=== PATIENT | female | born 1980 | race Caucasian/White ===

== ENCOUNTER 2021-12-04 16:45 | Emergency (ER) | payer BC, SELFPAY ==
--- NOTE | ~2021-12-04 | XR_ITS ---
EXAMINATION: XR SHOULDER, RIGHT CLINICAL INFORMATION: Pain COMPARISON: None TECHNIQUE: Three views of the right shoulder. FINDINGS: No fracture. Glenohumeral and acromioclavicular alignment is anatomic with normal joint space. No abnormal soft tissue calcifications. Visualized right hemithorax is unremarkable. XR/XR shoulder RT min 2V IMPRESSION: No acute osseous abnormality seen.
[2021-12-04 16:49] VITALS: BP 135/84; PULSE 71; RESP 18; TEMP 37; O2SAT 100; BMI 29.2
--- NOTE | 2021-12-04 17:08 | ED_ITS ---
HPI - Extremity Problem General Chief complaint: Extremity Injury, Upper Stated complaint: r shoulder pain Time Seen by Provider: 12/04/21 17:08 History of Present Illness HPI Narrative: Patient complains of right shoulder pain for several weeks with no known injury it hurts to move her shoulder Related Data Previous Rx's Medication Instructions Recorded ibuprofen 600 mg tablet 600 mg PO Q6H PRN pain #20 tabs 12/04/21 Allergies Allergy/AdvReac Type Severity Reaction Status Date / Time codeine [CODEINE] Allergy Intermediate VOMITING Unverified 02/14/20 19:11 oxycodone [OXYCODONE] Allergy Intermediate VOMITING Unverified 02/14/20 19:11 trazodone [TRAZODONE] Allergy Intermediate NAUSEA & Unverified 02/14/20 19:11 VOMITING opiates Allergy Unknown vomiting Uncoded 01/05/17 00:00 trazadone Allergy Unknown nausea and Uncoded 01/05/17 00:00 vomiting Review of Systems Review of Systems: Positive for right shoulder pain Negatives are no fever no chills no headache no neck pain no numbness weakness or tingling no chest pain no shortness of breath no other extremity pains, no skin rash Yes all other systems are reviewed and are negative PMFSH Past Medical History Source: nursing notes reviewed Social History Social History Advance Directives: No Advance Directives Information Provided: No Physical Exam Vital Signs: Vital Signs: Last Vital Signs Temp 98.6 F 12/04/21 16:49 Pulse 71 12/04/21 16:49 Resp 18 12/04/21 16:49 BP 135/84 12/04/21 16:49 Pulse Ox 100 12/04/21 16:49 O2 Del Method 12/04/21 16:49 BMI result Body Mass Index 29.2 General appearance no distress Head is normocephalic atraumatic Neck is supple and nontender The back is supple and nontender with full range of motion The chest is clear to auscultation bilateral no chest wall tenderness Heart no murmur The extremities the right shoulder has mildly limited range of motion with some mild discomfort on extension abduction and external rotation, there is no redness no warmth to the joint no swelling, neurovascular intact distal, there was tenderness to anterior and lateral aspects of the shoulder but skin was otherwise normal, neurovascular intact distal Other extremities normal Course Course Course Narrative: X-ray of the right shoulder was normal Patient is vice to follow with orthopedist for further evaluation and well- appearing patient is discharged Discharge Plan Discharge Clinical Impression: Right shoulder strain Patient Disposition: Home, Self-Care Additional Instructions: I did not see any significant abnormality on your x-ray but the reading is not back from the radiologist I will check radiologist reading tomorrow morning and will call you if there is anything I missed Follow with orthopedist for further evaluation Return any concerns Prescriptions: New ibuprofen 600 mg tablet 600 mg PO Q6H PRN (Reason: pain) Qty: 20 0RF Referrals: Dong Chase MD [Physician] - (Right shoulder pain) Interventions: ED Discharge Assessment Last Done: 12/04/21 19:16 Discharge Date/Time: 12/04/21 19:26
== END 2021-12-04 19:26 | disposition home or self-care (01) ==
PROVIDERS: Emergency Provider Internal Medicine
DX: S46.911A Strain of unspecified muscle, fascia and tendon at shoulder and upper arm level, right arm, initial encounter (principal); X58.XXXA Exposure to other specified factors, initial encounter; Y93.9 Activity, unspecified; Y92.9 Unspecified place or not applicable; Y99.8 Other external cause status
CPT/HCPCS: 73030; 99282; 99283

== ENCOUNTER 2022-02-23 08:47 | Emergency (ER) | payer BC, SELFPAY ==
--- NOTE | ~2022-02-23 | US_ITS ---
EXAMINATION: US ABDOMEN LIMITED CLINICAL INFORMATION: Right upper quadrant pain, rule out gallstones. COMPARISON: None TECHNIQUE: Real-time imaging of the right upper quadrant abdominal viscera. FINDINGS: PANCREAS: Visualized portions unremarkable. LIVER: Unremarkable. GALLBLADDER: Unremarkable. COMMON BILE DUCT: Normal in caliber measuring 0.3 cm in diameter. RIGHT KIDNEY: 10.2 cm. Unremarkable. FREE FLUID: None. US/US abdomen limited IMPRESSION: Unremarkable abdominal ultrasound.
[2022-02-23 08:54] VITALS: BP 125/62; PULSE 62; RESP 18; TEMP 36.8; O2SAT 99; BMI 29.2
[2022-02-23 09:08] LABS: MANUAL DIFF FLAG NO
[2022-02-23 09:09] LABS: Basophils Percent Auto 0.3 % (0-2); Eosinophils Absolute Auto 0.2 X10*3/uL (0.0-0.4); Eosinophils Percent Auto 2.8 % (0-4); Hematocrit 35.6 % (37.0-47.0); Imm Gran Abs Auto 0.01 X10*3/uL (0.00-0.03); Imm Gran Pct Auto 0.2 % (0.0-0.4); Lymphocytes Absolute Auto 1.9 X10*3/uL (1.2-4.9); Lymphocytes Percent Auto 30.7 % (20-40); Mean Corpuscular HGB Conc 30.9 g/dl (31.0-35.0); Mean Corpuscular Hemoglobin 23.8 pg (27.0-33.0); Mean Corpuscular Volume 77.1 fL (80.0-98.0); Mean Platelet Volume 11.3 fL (9.4-12.3); Monocytes Absolute Auto 0.4 X10*3/uL (0.1-1.2); Monocytes Percent Auto 7.2 % (2-11); Neutrophils Absolute Auto 3.6 x10*3/uL (2.0-8.3); Neutrophils Percent Auto 58.8 % (45-73); Platelet Count 206 X10*3/uL (160-400); Red Blood Count 4.62 X10*6/uL (4.20-5.50); Red Cell Distribution Width 15.9 % (11.0-16.0); White Blood Count 6.1 X10*3/uL (4.8-10.8)
[2022-02-23 09:23] LABS: Anion Gap 14 (12-20); Blood Urea Nitrogen 16 mg/dL (9-16); Calcium 9.6 mg/dL (8.4-10.2); Carbon Dioxide 24 mmol/L (22-29); Chloride 106 mmol/L (96-108); Creatinine Clr Calc Pharmacy 94.4; Estimated Glomerular Filt Rate > 60; Glucose Random 99 mg/dL (60-115); Potassium 4.5 mmol/L (3.3-5.1); Sodium 139 mmol/L (135-145)
[2022-02-23 10:12] LABS: Alanine Aminotransferase 17 U/L (0-31); Albumin Level 4.4 g/dL (3.5-5.0); Alkaline Phosphatase 79 U/L (39-117); Aspartate Amino Transferase 21 U/L (5-31); Bilirubin Direct 0.2 mg/dL (0.0-0.5); Bilirubin Total 0.4 mg/dL (0.0-1.0); Lipase 62 U/L (8-78); Total Protein 7.8 g/dL (6.5-8.0)
[2022-02-23 10:21] LABS: HCG Quantitative < 2 mIU/mL
[2022-02-23] MEDS: Famotidine 20 MG TABLET PO (11:01)
[2022-02-23] MEDS: Ondansetron ODT 4 MG TAB.RAPDIS TRANSLINGU (11:01)
[2022-02-23] MEDS: PHENobarb/Hyoscy/Atropine/Scop 10 ML ELIXIR PO (11:01)
[2022-02-23 11:02] VITALS: BP 126/71; PULSE 74; RESP 15; TEMP 37.1; O2SAT 100
--- NOTE | 2022-02-23 12:07 | ED_ITS ---
HPI - General Adult General Chief complaint: Abdominal Pain Stated complaint: gall bladder issues Time Seen by Provider: 02/23/22 09:40 Source: patient Mode of arrival: ambulatory Limitations: no limitations History of Present Illness HPI narrative: 41 YOLD FEMALE PRESENTS TO THE ED for RUQ pain. Patient states history of biliary COlic. Patient denies any chest pain, shortness of breath, pleurisy, abdominal trauma, dysuria, hematuria, vaginal bleeding, vaginal discharge, flank pain, or radiating to the back. Patient states symptoms began last night after eating fatty food. Patient states pain presently in the ER is 06/08. Patient admits pain is improved. Related Data Previous Rx's Medication Instructions Recorded ibuprofen 600 mg tablet 600 mg PO Q6H PRN pain #20 tabs 12/04/21 naproxen 500 mg tablet 500 mg PO BID PRN pain 7 days #14 02/23/22 tabs Allergies Allergy/AdvReac Type Severity Reaction Status Date / Time codeine [CODEINE] Allergy Intermediate VOMITING Unverified 02/14/20 19:11 oxycodone [OXYCODONE] Allergy Intermediate VOMITING Unverified 02/14/20 19:11 trazodone [TRAZODONE] Allergy Intermediate NAUSEA & Unverified 02/14/20 19:11 VOMITING opiates Allergy Unknown vomiting Uncoded 01/05/17 00:00 trazadone Allergy Unknown nausea and Uncoded 01/05/17 00:00 vomiting Review of Systems Review of Systems: Right upper quadrant abdominal pain Yes all other systems are reviewed and are negative PMFSH Social History Social History Advance Directives: No Advance Directives Information Provided: No Physical Exam ED Vital Signs: Vital Signs - 24 hr 02/23/22 08:54 02/23/22 11:02 Temperature 98.2 F 98.7 F Pulse Rate 62 74 Respiratory Rate 18 15 Blood Pressure 125/62 126/71 Pulse Oximetry 99 100 Oxygen Delivery Method Room Air Room Air BMI result Body Mass Index 29.2 Const General: cooperative, healthy appearing, comfortable, no acute distress, well developed, alert, awake and Physically active Orientation/consciousness: oriented to time and patient oriented x3 HENMT Head: Yes normal to inspection, Yes No palpable skull fracture present, Yes normocephalic, Yes atraumatic and No abrasion Eyes General: appearance normal, both eyes and all related structures Neck Neck: Yes normal visual inspection, Yes full ROM, Yes no lymphadenopathy, Yes no meningeal signs, Yes trachea midline, Yes supple, No anterior neck swelling and No tender Chest Chest palpation & inspection: normal inspection of the chest and normal palpation of entire chest wall Resp Effort & Inspection: normal respiratory effort and able to speak in complete sentences Auscultation: clear to auscultation bilaterally Cardio Jugular venous distension: no JVD Heart sounds: S1 normal heart sound present and S2 normal heart sound present GI Inspection: Yes normal to inspection and No abdominal wall ecchymosis Palpation (GI): Soft to palpation, not firm, Tenderness to palpation present (GI) in the RUQ, no guarding and not rigid General: No CVA tenderness and Yes no CVA tenderness Back/Spine/Pelvis Back: no CVA tenderness, No CVA tenderness and No back tenderness Skin General skin exam: no rashes or lesions noted, elasticity normal and turgor normal Neuro General: oriented to time, patient oriented x3, gait normal, tone normal, moves all extremities, no meningeal signs, no focal motor deficits and CN's II-XI intact bilaterally Cranial nerves: Yes CN's II-XII intact bilaterally Extrem General: Yes normal to inspection and Yes full ROM Psych Appearance: grossly normal, well kempt and not disheveled Course Course Course Narrative: Labs and right upper quadrant ultrasound ordered. Patient well-appearing Reevaluation(s) Reevaluation #1: Labs are normal. Abdominal ultrasound came back normal and negative for gallstones. Patient denies any lower abdominal pain. Patient did not give any urine although was ordered. Patient states she will follow up with primary care provider to give urine if she is symptomatic for urinary tract infection. Patient is safe for discharge. Time: 13:30 Medical Decision Making [facility] Narrative Medical decision making narrative: RUQ pain Lab Data Result diagrams: 02/23/22 09:03 02/23/22 09:03 Labs: Lab Results 02/23/22 02/23/22 Range/Units 09:03 09:03 WBC 6.1 (4.8-10.8) X10*3/uL RBC 4.62 (4.20-5.50) X10*6/uL Hgb 11.0 L (12.0-16.0) g/dl Hct 35.6 L (37.0-47.0) % MCV 77.1 L (80.0-98.0) fL MCH 23.8 L (27.0-33.0) pg MCHC 30.9 L (31.0-35.0) g/dl RDW 15.9 (11.0-16.0) % Plt Count 206 (160-400) X10*3/uL MPV 11.3 (9.4-12.3) fL Immature Gran % (Auto) 0.2 (0.0-0.4) % Neut % (Auto) 58.8 (45-73) % Lymph % (Auto) 30.7 (20-40) % Roberts % (Auto) 7.2 (2-11) % Eos % (Auto) 2.8 (0-4) % Baso % (Auto) 0.3 (0-2) % Lymph # (Auto) 1.9 (1.2-4.9) X10*3/uL Roberts # (Auto) 0.4 (0.1-1.2) X10*3/uL Eos # (Auto) 0.2 (0.0-0.4) X10*3/uL Baso # (Auto) 0.0 (0.0-0.2) X10*3/uL Abs Immat Gran (auto) 0.01 (0.00-0.03) X10*3/uL Absolute Neuts (auto) 3.6 (2.0-8.3) x10*3/uL Absolute Nucleated RBC 0.000 (0.0-0.012) X10*3/uL Nucleated RBC % (auto) 0.0 (0.0-0.2) /100WBC Sodium 139 (135-145) mmol/L Potassium 4.5 (3.3-5.1) mmol/L Chloride 106 (96-108) mmol/L Carbon Dioxide 24 (22-29) mmol/L Anion Gap 14 (12-20) BUN 16 (9-16) mg/dL Creatinine 0.78 (0.5-1.4) mg/dL Estim Creat Clear Calc 94.4 Estimated GFR > 60 Random Glucose 99 (60-115) mg/dL Calcium 9.6 (8.4-10.2) mg/dL Total Bilirubin 0.4 (0.0-1.0) mg/dL Direct Bilirubin 0.2 (0.0-0.5) mg/dL AST 21 (5-31) U/L ALT 17 (0-31) U/L Alkaline Phosphatase 79 (39-117) U/L Total Protein 7.8 (6.5-8.0) g/dL Albumin 4.4 (3.5-5.0) g/dL Lipase 62 (8-78) U/L Beta HCG, Quant < 2 mIU/mL Discharge Plan Discharge Clinical Impression: Abdominal pain, acute, right upper quadrant Patient Disposition: Home, Self-Care Instructions: Abdominal Pain (ED) Additional Instructions: Your blood work and ultrasound came back normal and negative for gallstones or cholecystitis. Please follow-up with the primary care provider. Return to the ED immediately for any nausea, vomiting, fever, chills, worsening abdominal pain, dysuria hematuria vaginal bleeding, vaginal discharge, or any other c oncerning symptoms. Prescriptions: New naproxen 500 mg tablet 500 mg PO BID PRN (Reason: pain) 7 Days Qty: 14 0RF No Action ibuprofen 600 mg tablet 600 mg PO Q6H PRN (Reason: pain) Qty: 20 0RF Stand Alone Forms: Work/School Release Interventions: ED Discharge Assessment Last Done: 02/23/22 13:40 Discharge Date/Time: 02/23/22 13:41 Print Language: [place]
== END 2022-02-23 13:41 | disposition home or self-care (01) ==
PROVIDERS: Physician Assistant; Emergency Provider Emergency Medicine
DX: R10.11 Right upper quadrant pain (principal); Z79.899 Other long term (current) drug therapy
CPT/HCPCS: 36415; 76705; 80048; 80076; 83690; 84702; 85025; 99284

== ENCOUNTER 2022-07-09 08:17 | Emergency (ER) | payer BC, SELFPAY ==
[2022-07-09 08:22] VITALS: BP 123/86; PULSE 75; RESP 16; TEMP 37.1; O2SAT 100; BMI 28.3
--- NOTE | 2022-07-09 08:33 | PC.NURSE ---
neuros intact. PERRL. ALMENDAREZ with no weakness noted. No facial droop. Ambulates with steady gait. speech clear
[2022-07-09 08:53] LABS: Appearance Urine Clear; Color Urine Yellow; Glucose Urine UA Negative (Negative); Leukocyte Esterase Urine Negative (Negative); Nitrite Urine Negative (Negative); PH 5.5 (5.0-9.0); Specific Gravity - Urine >= 1.030 (1.005-1.025); Urine Blood Negative (Negative); Urine Ketones Negative (Negative); Urine Protein Trace mg/dL (Neg-Trace)
[2022-07-09 10:25] VITALS: BP 122/75; PULSE 70
[2022-07-09 10:25] LABS: UPreg QC Valid YES; Urine Pregnancy NEGATIVE (NEGATIVE)
[2022-07-09 10:26] VITALS: BP 123/70; PULSE 73
[2022-07-09 10:28] VITALS: BP 107/75; PULSE 70
[2022-07-09 10:52] LABS: Basophils Percent Auto 0.2 % (0-2); Eosinophils Absolute Auto 0.1 X10*3/uL (0.0-0.4); Eosinophils Percent Auto 2.1 % (0-4); Hematocrit 29.1 % (37.0-47.0); Hemoglobin 8.7 g/dl (12.0-16.0); Imm Gran Abs Auto 0.01 X10*3/uL (0.00-0.03); Imm Gran Pct Auto 0.2 % (0.0-0.4); Lymphocytes Percent Auto 42.2 % (20-40); MANUAL DIFF FLAG SCAN; Mean Corpuscular HGB Conc 29.9 g/dl (31.0-35.0); Mean Corpuscular Hemoglobin 21.4 pg (27.0-33.0); Mean Corpuscular Volume 71.7 fL (80.0-98.0); Mean Platelet Volume 10.3 fL (9.4-12.3); Monocytes Absolute Auto 0.3 X10*3/uL (0.1-1.2); Monocytes Percent Auto 5.3 % (2-11); Neutrophils Absolute Auto 2.4 x10*3/uL (2.0-8.3); Platelet Count 149 X10*3/uL (160-400); Red Blood Count 4.06 X10*6/uL (4.20-5.50); Red Cell Distribution Width 16.3 % (11.0-16.0); SCAN SMEAR FLAG 1; White Blood Count 4.8 X10*3/uL (4.8-10.8)
--- NOTE | 2022-07-09 11:08 | ECG_ITS ---
Test Reason : diziness Blood Pressure : / mmHG Vent. Rate : 066 BPM Atrial Rate : 066 BPM P-R Int : 168 ms QRS Dur : 080 ms QT Int : 400 ms P-R-T Axes : 020 038 017 degrees QTc Int : 419 ms Normal sinus rhythm Normal ECG No previous ECGs available Referred By: Renee Arboleda Electronically Signed By:ALEXANDRA ALMODOVAR MD
[2022-07-09 11:10] LABS: C Reactive Protein 0.11 mg/dL (< or = 0.50)
[2022-07-09 11:12] LABS: Alanine Aminotransferase 17 U/L (0-31); Alkaline Phosphatase 66 U/L (39-117); Anion Gap 13 (12-20); Aspartate Amino Transferase 21 U/L (5-31); Bilirubin Total 0.4 mg/dL (0.0-1.0); Blood Urea Nitrogen 11 mg/dL (9-16); Carbon Dioxide 24 mmol/L (22-29); Chloride 106 mmol/L (96-108); Creatinine Clr Calc Pharmacy 100.8; Estimated Glomerular Filt Rate > 60; Glucose Random 92 mg/dL (60-115); Potassium 4.3 mmol/L (3.3-5.1); Sodium 139 mmol/L (135-145); Total Protein 6.8 g/dL (6.5-8.0)
[2022-07-09 11:19] LABS: SLIDE REVIEW VERIFIED
[2022-07-09 11:28] LABS: Erythrocyte Sedimentation Rate 25 MM/HR (0-20)
--- NOTE | 2022-07-09 12:09 | ED.NEUROSD ---
HPI - Neuro Symptoms/Deficit General Chief Complaint: Neuro Symptoms/Deficit Stated Complaint: Weak Lightheaded Since Tuesday Time Seen by Provider: 07/09/22 08:58 Source: patient Mode of arrival: ambulatory History of Present Illness HPI Narrative: 41-year-old female without significant past medical history presents with complaints of a mild headache on Tuesday and then states that on Tuesday morning she was lightheaded and had an isolated episode of nausea and vomiting that she feels was associated with feelings of lightheadedness. She denies any ringing of the ears, headaches, room spinning, fevers, chills, cough, sore throat, recent travel, tick exposure, menorrhagia, diarrhea, abdominal pain, shortness of breath or chest pain. Patient also denies any recent weight loss or night sweats and denies any medication use to include herbal medications. She denies any alcohol or drug use. Related Data Previous Rx's Medication Instructions Recorded ibuprofen 600 mg tablet 600 mg PO Q6H PRN pain #20 tabs 12/04/21 naproxen 500 mg tablet 500 mg PO BID PRN pain 7 days #14 02/23/22 tabs Allergies Allergy/AdvReac Type Severity Reaction Status Date / Time codeine [CODEINE] Allergy Intermediate VOMITING Unverified 07/09/22 08:31 oxycodone [OXYCODONE] Allergy Intermediate VOMITING Unverified 07/09/22 08:31 trazodone [TRAZODONE] Allergy Intermediate NAUSEA & Unverified 07/09/22 08:31 VOMITING opiates Allergy Unknown vomiting Uncoded 07/09/22 08:31 trazadone Allergy Unknown nausea and Uncoded 07/09/22 08:31 vomiting Review of Systems Review of Systems: Pertinent positives and negatives as stated in HPI COUNTS INCLUDE 234 BEDS AT THE [facility] Past Medical History Source: nursing notes reviewed Social History Social History Alcohol intake: never Smoked in Last 30 Days: No Use of substances other than those prescribed or required for medical reasons: No Advance Directives: No Advance Directives Information Provided: Yes Physical Exam Vital Signs: Vital Signs: Last Vital Signs Temp 98.7 F 07/09/22 08:22 Pulse 61 07/09/22 17:18 Resp 14 07/09/22 17:18 BP 117/72 07/09/22 17:18 Pulse Ox 100 02/10/23 17:18 O2 Del Method 07/09/22 17:18 BMI result Body Mass Index 28.3 VITAL SIGNS: Reviewed. GENERAL: Well developed, well nourished, in no acute distress. HEAD: Normocephalic/atraumatic EYES: PERRLA, EOMI EARS: Ext canals without abnormality, TMs non-bulging and non-erythematous NOSE: Nares patent bilateral OROPHARYNX: no oral lesions noted, posterior pharynx clear and non-erythematous without noted tonsillar enlargement/erythema/exudates NECK: Supple, no adenopathy LUNGS: Normal breath sounds. No adventitious sounds or accessory muscle use. SpO2<100> CARDIOVASCULAR: Regular rate and rhythm without noted murmurs, no JVD or lower extremity edema. ABDOMEN: Soft, non-tender, non-distended with bowel sounds. MUSCULOSKELETAL: No tenderness, deformities, or effusions noted on gross inspection. EXTREMITIES: No cyanosis, clubbing or edema. SKIN: Inspection of the skin reveals no rashes NEUROLOGIC: Alert and oriented x 4. Strength and sensation to light touch were grossly intact x 4, no facial asymmetry, no pronator drift, cranial nerves 2-12 are grossly intact. Medications Administered Discontinued Medications Generic Name Dose Route Start Last Admin Trade Name Freq PRN Reason Stop Dose Admin Sodium Chloride 1,000 mls @ 999 mls/hr 07/09/22 12:30 07/09/22 13:51 Ns IV 07/09/22 13:30 Infused .Q1H1M ANAHY Infusion Iron Sucrose 200 mg/ Sodium 110 mls @ 440 mls/hr 07/09/22 15:48 07/09/22 17:15 Chloride IV 07/09/22 16:02 Infused ONCE ONE Infusion Medical Decision Making Medical Decision Making MDM Narrative: 41-year-old female with review of all investigations and striking evidence of anemia with thrombocytopenia but RBCs are low and reticulocytes are also low. In contrast, the chemistry studies demonstrate renal function within normal limits. I reviewed the EKG which is not consistent with conduction delays to further support a possible Lyme or ehrlichiosis type of etiology. Patient denies any menorrhagia and on review of her prior records this is further supported. There is no travel history or viral illness history. Her orthostatics were noted to be positive and she is receiving 1 L of IV fluids. Reviewed all investigations and my interpretation is iron deficiency anemia with microcytosis as well as thrombocytopenia, I discussed this at length with head turning machine operator, Dr. Serrano, she ordered additional labs and made the recommendation to infuse 200 mg of Venofer. On re-evaluation patient is feeling somewhat improved and understands that she will receive another infusion this next week and is encouraged to initiate dietary choices as well as vitamins for iron source. She was also given strict return precautions. Differential Diagnosis Differential Diagnoses: The differential diagnosis associated with the presentation includes Please see the discussion above Consult Healthcare Provider Management of the patient was discussed with: [facility] Out 1322: Hematology consulted, Dr. Serrano, who will add additional labs as well. Lab Data MDM Lab Attestation statement: I reviewed the patient's lab results. Please see the discussion above 07/09/22 10:41 07/09/22 10:41 Labs: Lab Results 07/09/22 07/09/22 07/09/22 Range/Units 08:43 08:43 10:41 WBC 4.8 (4.8-10.8) X10*3/uL RBC 4.06 L (4.20-5.50) X10*6/uL Hgb 8.7 L D (12.0-16.0) g/dl Hct 29.1 L (37.0-47.0) % MCV 71.7 L (80.0-98.0) fL MCH 21.4 L (27.0-33.0) pg MCHC 29.9 L (31.0-35.0) g/dl RDW 16.3 H (11.0-16.0) % Plt Count 149 L D (160-400) X10*3/uL MPV 10.3 (9.4-12.3) fL Immature Gran % (Auto) 0.2 (0.0-0.4) % Neut % (Auto) 50.0 (45-73) % Lymph % (Auto) 42.2 H (20-40) % [place] % (Auto) 5.3 (2-11) % Eos % (Auto) 2.1 (0-4) % Baso % (Auto) 0.2 (0-2) % Lymph # (Auto) 2.0 (1.2-4.9) X10*3/uL [place] # (Auto) 0.3 (0.1-1.2) X10*3/uL Eos # (Auto) 0.1 (0.0-0.4) X10*3/uL Baso # (Auto) 0.0 (0.0-0.2) X10*3/uL Abs Immat Gran (auto) 0.01 (0.00-0.03) X10*3/uL Absolute Neuts (auto) 2.4 (2.0-8.3) x10*3/uL Absolute Nucleated RBC 0.000 (0.0-0.012) X10*3/uL Nucleated RBC % (auto) 0.0 (0.0-0.2) /100WBC Neutrophils % (Manual) 55 (45-73) % Band Neutrophils % 2 L (3-5) % Lymphocytes % (Manual) 36 (20-40) % Atypical Lymphs % (Man) 3 (0-6) % Monocytes % (Manual) 4 (2-11) % Abs Neuts (Manual) 2.7 (2.0-8.3) X10*3/uL Lymphocytes # (Manual) 1.7 (1.2-4.9) X10*3/uL Atyp Lymphs # (Manual) 0.1 x10*3/uL Monocytes # (Manual) 0.2 (0.1-1.2) X10*3/uL Platelet Estimate NORMAL (NORMAL) Plt Morphology Comment NORMAL RBC Morphology NOTED Hypochromasia 1+ (5-14) /OIF Microcytosis 1+ (5-14) /OIF Ovalocytes 1+ (5-14) /OIF Smear Tech's Comments VERIFIED ESR (0-20) MM/HR Absolute Retic (0.026-0.095) X10*6/uL Percent Retic (0.5-1.8) % Immature Retic Fraction (3.0-15.9) % Retic Hgb Equivalent (30.0-35.0) pg PT (10.0-13.1) SEC INR (0.9-1.1) APTT (26.0-36.4) SEC Sodium (135-145) mmol/L Potassium (3.3-5.1) mmol/L Chloride (96-108) mmol/L Carbon Dioxide (22-29) mmol/L Anion Gap (12-20) BUN (9-16) mg/dL Creatinine (0.5-1.4) mg/dL Estim Creat Clear Calc Estimated GFR Random Glucose (60-115) mg/dL Calcium (8.4-10.2) mg/dL Iron (30-160) mcg/dL TIBC (228-428) mcg/dL % Saturation (15-50) % Unsat Iron Binding ug/dL Ferritin (10-250) ng/mL Total Bilirubin (0.0-1.0) mg/dL AST (5-31) U/L ALT (0-31) U/L Alkaline Phosphatase (39-117) U/L Lactate Dehydrogenase (122-220) U/L C-Reactive Protein (< or = 0.50) mg/dL Total Protein (6.5-8.0) g/dL Albumin (3.5-5.0) g/dL Vitamin B12 (200-900) pg/mL Folate (> or = 4.0) ng/mL Urine Color Yellow Urine Appearance Clear Urine pH 5.5 (5.0-9.0) Ur Specific [place] >= 1.030 H (1.005-1.025) Urine Protein Trace (Neg-Trace) mg/dL Urine Glucose (UA) Negative (Negative) mg/dL Urine Ketones Negative (Negative) mg/dL Urine Blood Negative (Negative) Urine Nitrite Negative (Negative) Ur Leukocyte Esterase Negative (Negative) Urine Test NEGATIVE (NEGATIVE) 07/09/22 07/09/22 07/09/22 Range/Units 10:41 10:41 10:41 WBC (4.8-10.8) X10*3/uL RBC (4.20-5.50) X10*6/uL Hgb (12.0-16.0) g/dl Hct (37.0-47.0) % MCV (80.0-98.0) fL MCH (27.0-33.0) pg MCHC (31.0-35.0) g/dl RDW (11.0-16.0) % Plt Count (160-400) X10*3/uL MPV (9.4-12.3) fL Immature Gran % (Auto) (0.0-0.4) % Neut % (Auto) (45-73) % Lymph % (Auto) (20-40) % Dawes % (Auto) (2-11) % Eos % (Auto) (0-4) % Baso % (Auto) (0-2) % Lymph # (Auto) (1.2-4.9) X10*3/uL [place] # (Auto) (0.1-1.2) X10*3/uL Eos # (Auto) (0.0-0.4) X10*3/uL Baso # (Auto) (0.0-0.2) X10*3/uL Abs Immat Gran (auto) (0.00-0.03) X10*3/uL Absolute Neuts (auto) (2.0-8.3) x10*3/uL Absolute Nucleated RBC (0.0-0.012) X10*3/uL Nucleated RBC % (auto) (0.0-0.2) /100WBC Neutrophils % (Manual) (45-73) % Band Neutrophils % (3-5) % Lymphocytes % (Manual) (20-40) % Atypical Lymphs % (Man) (0-6) % Monocytes % (Manual) (2-11) % Abs Neuts (Manual) (2.0-8.3) X10*3/uL Lymphocytes # (Manual) (1.2-4.9) X10*3/uL Atyp Lymphs # (Manual) x10*3/uL Monocytes # (Manual) (0.1-1.2) X10*3/uL Platelet Estimate (NORMAL) Plt Morphology Comment RBC Morphology Hypochromasia /OIF Microcytosis /OIF Ovalocytes /OIF Smear Tech's Comments ESR 25 H (0-20) MM/HR Absolute Retic (0.026-0.095) X10*6/uL Percent Retic (0.5-1.8) % Immature Retic Fraction (3.0-15.9) % Retic Hgb Equivalent (30.0-35.0) pg PT (10.0-13.1) SEC INR (0.9-1.1) APTT (26.0-36.4) SEC Sodium 139 (135-145) mmol/L Potassium 4.3 (3.3-5.1) mmol/L Chloride 106 (96-108) mmol/L Carbon Dioxide 24 (22-29) mmol/L Anion Gap 13 (12-20) BUN 11 (9-16) mg/dL Creatinine 0.72 (0.5-1.4) mg/dL Estim Creat Clear Calc 100.8 Estimated GFR > 60 Random Glucose 92 (60-115) mg/dL Calcium 9.0 D (8.4-10.2) mg/dL Iron 18 L (30-160) mcg/dL TIBC 349 (228-428) mcg/dL % Saturation 5 L (15-50) % Unsat Iron Binding 331 ug/dL Ferritin 12 (10-250) ng/mL Total Bilirubin 0.4 (0.0-1.0) mg/dL AST 21 (5-31) U/L ALT 17 (0-31) U/L Alkaline Phosphatase 66 (39-117) U/L Lactate Dehydrogenase 146 (122-220) U/L C-Reactive Protein 0.11 (< or = 0.50) mg/dL Total Protein 6.8 (6.5-8.0) g/dL Albumin 4.0 (3.5-5.0) g/dL Vitamin B12 561 (200-900) pg/mL Folate 11.9 (> or = 4.0) ng/mL Urine Color Urine Appearance Urine pH (5.0-9.0) Ur Specific [place] (1.005-1.025) Urine Protein (Neg-Trace) mg/dL Urine Glucose (UA) (Negative) mg/dL Urine Ketones (Negative) mg/dL Urine Blood (Negative) Urine Nitrite (Negative) Ur Leukocyte Esterase (Negative) Urine Test (NEGATIVE) 07/09/22 07/09/22 Range/Units 12:41 12:41 WBC (4.8-10.8) X10*3/uL RBC (4.20-5.50) X10*6/uL Hgb (12.0-16.0) g/dl Hct (37.0-47.0) % MCV (80.0-98.0) fL MCH (27.0-33.0) pg MCHC (31.0-35.0) g/dl RDW (11.0-16.0) % Plt Count (160-400) X10*3/uL MPV (9.4-12.3) fL Immature Gran % (Auto) (0.0-0.4) % Neut % (Auto) (45-73) % Lymph % (Auto) (20-40) % Dawes % (Auto) (2-11) % Eos % (Auto) (0-4) % Baso % (Auto) (0-2) % Lymph # (Auto) (1.2-4.9) X10*3/uL [place] # (Auto) (0.1-1.2) X10*3/uL Eos # (Auto) (0.0-0.4) X10*3/uL Baso # (Auto) (0.0-0.2) X10*3/uL Abs Immat Gran (auto) (0.00-0.03) X10*3/uL Absolute Neuts (auto) (2.0-8.3) x10*3/uL Absolute Nucleated RBC (0.0-0.012) X10*3/uL Nucleated RBC % (auto) (0.0-0.2) /100WBC Neutrophils % (Manual) (45-73) % Band Neutrophils % (3-5) % Lymphocytes % (Manual) (20-40) % Atypical Lymphs % (Man) (0-6) % Monocytes % (Manual) (2-11) % Abs Neuts (Manual) (2.0-8.3) X10*3/uL Lymphocytes # (Manual) (1.2-4.9) X10*3/uL Atyp Lymphs # (Manual) x10*3/uL Monocytes # (Manual) (0.1-1.2) X10*3/uL Platelet Estimate (NORMAL) Plt Morphology Comment RBC Morphology Hypochromasia /OIF Microcytosis /OIF Ovalocytes /OIF Smear Tech's Comments ESR (0-20) MM/HR Absolute Retic 0.022 L (0.026-0.095) X10*6/uL Percent Retic 0.6 (0.5-1.8) % Immature Retic Fraction 14.6 (3.0-15.9) % Retic Hgb Equivalent 20.2 L (30.0-35.0) pg PT 13.1 (10.0-13.1) SEC INR 1.1 (0.9-1.1) APTT 29.6 (26.0-36.4) SEC Sodium (135-145) mmol/L Potassium (3.3-5.1) mmol/L Chloride (96-108) mmol/L Carbon Dioxide (22-29) mmol/L Anion Gap (12-20) BUN (9-16) mg/dL Creatinine (0.5-1.4) mg/dL Estim Creat Clear Calc Estimated GFR Random Glucose (60-115) mg/dL Calcium (8.4-10.2) mg/dL Iron (30-160) mcg/dL TIBC (228-428) mcg/dL % Saturation (15-50) % Unsat Iron Binding ug/dL Ferritin (10-250) ng/mL Total Bilirubin (0.0-1.0) mg/dL AST (5-31) U/L ALT (0-31) U/L Alkaline Phosphatase (39-117) U/L Lactate Dehydrogenase (122-220) U/L C-Reactive Protein (< or = 0.50) mg/dL Total Protein (6.5-8.0) g/dL Albumin (3.5-5.0) g/dL Vitamin B12 (200-900) pg/mL Folate (> or = 4.0) ng/mL Urine Color Urine Appearance Urine pH (5.0-9.0) Ur Specific [place] (1.005-1.025) Urine Protein (Neg-Trace) mg/dL Urine Glucose (UA) (Negative) mg/dL Urine Ketones (Negative) mg/dL Urine Blood (Negative) Urine Nitrite (Negative) Ur Leukocyte Esterase (Negative) Urine Test (NEGATIVE) Independent Interpretation I performed an independent interpretation of an: EKG Interpretation: Normal sinus rhythm, HR-66, no STEMI, LA/QRS/QTC are within normal limits. External Record Review External record reviewed: Outpatient record and Prior outpatient labs Critical Care Time Critical Care Time Critical Care Time: Yes Total Critical Care Time: 60 Attestation: I personally attest to this time spent taking care of the patient. Discharge Plan Discharge Clinical Impression: Iron deficiency anemia, Light-headed Patient Disposition: Home, Self-Care Instructions: Lightheadedness (ED), Iron Deficiency Anemia (ED), Iron Rich Diet (ED) Additional Instructions: 1. Please resume all home medications. 2. Please start taking a vitamin for the iron source and remember that this can change the color of your stool and that you should drink plenty of water to avoid any constipation. 3. Please call the office of Dr. Serrano, the referral as located below, as you will receive another IV dose of Venofer. 4. Please also call the office of your primary care provider. Return to the ER for any acute changes in your health. Prescriptions: No Action naproxen 500 mg tablet 500 mg PO BID PRN (Reason: pain) 7 Days Qty: 14 0RF ibuprofen 600 mg tablet 600 mg PO Q6H PRN (Reason: pain) Qty: 20 0RF Referrals: Elise Serrano MD [Physician] - (You planned for a 2nd IV dose of Venofer.) Stand Alone Forms: Work/School Release
[2022-07-09] MEDS: 0.9 % Sodium Chloride 1,000 ML 999 ML IV (12:43)
[2022-07-09 12:51] LABS: Immature Retic Fraction 14.6 % (3.0-15.9); Retic HGB Equivalent 20.2 pg (30.0-35.0); Reticulocyte Percent 0.6 % (0.5-1.8); Reticulocytes Absolute 0.022 X10*6/uL (0.026-0.095)
[2022-07-09 12:56] LABS: INTERNATIONAL NORM RATIO 1.1 (0.9-1.1); Prothrombin Time 13.1 SEC (10.0-13.1)
[2022-07-09 12:59] LABS: Partial Thromboplastin Time 29.6 SEC (26.0-36.4)
[2022-07-09 13:57] LABS: Atypical Lymph Absolute Manual 0.1 x10*3/uL; Atypical Lymphs Percent Manual 3 % (0-6); Band Neutrophils Percent 2 % (3-5); Lymphocytes Absolute Manual 1.7 X10*3/uL (1.2-4.9); Lymphocytes Percent Manual 36 % (20-40); Monocytes Absolute Manual 0.2 X10*3/uL (0.1-1.2); Monocytes Percent Manual 4 % (2-11); Neutrophils Absolute Manual 2.7 X10*3/uL (2.0-8.3); Neutrophils Percent Manual 55 % (45-73)
[2022-07-09 13:59] LABS: Hypochromasia 1+ (5-14) /OIF; Microcytosis 1+ (5-14) /OIF; Ovalocytes 1+ (5-14) /OIF; Platelet Estimate NORMAL (NORMAL); Platelet Morphology Comment NORMAL; RBC Morphology NOTED
[2022-07-09 14:01] VITALS: BP 127/59; PULSE 71; RESP 18; O2SAT 98
[2022-07-09 14:01] LABS: Iron 18 mcg/dL (30-160); Lactate Dehydrogenase 146 U/L (122-220); Percent Iron Saturation 5 % (15-50); Total Iron Binding Capacity 349 mcg/dL (228-428); Unsaturated Iron Binding 331 ug/dL
[2022-07-09 14:29] LABS: Ferritin 12 ng/mL (10-250); Folate 11.9 ng/mL (> or = 4.0); Vitamin B12 561 pg/mL (200-900)
--- NOTE | 2022-07-09 16:40 | PC.NURSE ---
called pharmacy regarding medication ordered, pharamcy states they are making the medications and will be bringing it down
[2022-07-09] MEDS: Iron Sucrose Complex 200 MG in 0.9 % Sodium Chloride 100 ML 440 MG IV (16:57)
[2022-07-09 17:18] VITALS: BP 117/72; PULSE 61; RESP 14; O2SAT 100
[2022-07-12 16:28] LABS: Haptoglobin 177 mg/dL (43-212)
[2022-07-12 16:57] LABS: Parvovirus B19 IgG 3.99; Parvovirus B19 IgM <0.9
[2022-07-12 20:44] LABS: Lyme Abs Screen <0.90 index
== END 2022-07-09 19:47 | disposition home or self-care (01) ==
PROVIDERS: Internal Medicine Medical Oncology; Emergency Provider Student in an Organized Health Care Education/Training Program
DX: D50.9 Iron deficiency anemia, unspecified (principal); R42 Dizziness and giddiness; R11.2 Nausea with vomiting, unspecified; Z79.899 Other long term (current) drug therapy
CPT/HCPCS: 36415; 80053; 81003; 81025; 82607; 82728; 82746; 83010; 83540; 83615; 85007; 85025; 85045; 85610; 85652; 85730; 86140; 86617; 86618; 86747; 93005; 96361; 96365; 99284; 99285; J1756

== ENCOUNTER 2023-04-08 10:00 | Outpatient (AMB) | payer BC, SELFPAY ==
--- NOTE | 2023-04-08 10:13 | MHC.PC.OV ---
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 Accompanied by: Daughter Allergies codeine [CODEINE] Allergy (Intermediate, Verified 04/08/23 10:45) VOMITING oxycodone [OXYCODONE] Allergy (Intermediate, Verified 04/08/23 10:45) VOMITING trazodone [TRAZODONE] Allergy (Intermediate, Verified 04/08/23 10:45) NAUSEA & VOMITING opiates Allergy (Unknown, Uncoded 04/08/23 10:45) vomiting trazadone Allergy (Unknown, Uncoded 04/08/23 10:45) nausea and vomiting Medication List - Last Reconciled 04/08/23 by Alireza Domínguez MD ibuprofen 600 mg PO Q6H PRN Tobacco use date assessed: 04/08/23 Dental Screening Dental Screen Date: 04/08/23 Did you have a dental visit in the last 12 months?: No Did you have a dental problem in the last 6 months where you did not have access to dental care?: No Was dental information given to patient?: Patient has dentist HPI 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 HPI Details Patient comes in today for her annual physical examination and to establish care - is a new patient to the practice States that she currently feels okay but continues to feel fatigued often She denies any headaches or dizziness Denies any chest pains, no SOB No nausea/vomiting, no abdominal pain No change in bowel habits noted Denies any acute urinary symptoms Adds that she's had a small dark skin lesion on her anterior chest wall (slightly to the left side) that has been present for a few years now but she feels that the lesion has gotten somewhat bigger lately - would like to know if this needs to be checked out further [facility] Medical History (Updated 04/08/23 @ 11:11 by Alireza Domínguez MD) Biliary colic Kidney stones Obesity (BMI 30-39.9) Iron deficiency anemia Surgical History (Updated 04/08/23 @ 11:11 by Alireza Domínguez MD) H/O section (~10/2016) Hx of tonsillectomy (~1993) Family History (Updated 04/08/23 @ 11:13 by Alireza Domínguez MD) Father Bipolar disorder Fibromyalgia Hypertension CVA (cerebral vascular accident) Cardiovascular disease Maternal Grandmother Lung cancer Social History Housing: House Alcohol intake: never Patient Tobacco Use Status: Former Tobacco user Quit Date: 06/2005 Tobacco use type: Cigarette e-Cigarette/Vaping Use: Never Used service: No Current occupational status: employed Current occupation: [employer] Cognitive needs: No Hearing needs: No Vision needs: Yes Female Reproductive History Menstrual Total pregnancies: 5 Full term: 2 Questionnaire PHQ-9 Over the last 2 weeks, how often have you been bothered by any of the following problems? 1. Little interest or pleasure in doing things: not at all 2. Feeling down, depressed, or hopeless: not at all 3. Trouble falling or staying asleep, or sleeping too much: not at all 4. Feeling tired or having little energy: not at all 5. Poor appetite or overeating: not at all 6. Feeling bad about yourself - or that you are a failure or have let yourself or your family down: not at all 7. Trouble concentrating on things, such as reading the newspaper or watching television: not at all 8. Moving or speaking so slowly that other people could have noticed. Or the opposite - being so fidgety or restless that you have been moving around a lot more than usual: not at all 9. Thoughts that you would be better off or of hurting yourself in some way: not at all Total score: 0 Depression Screening Interpretation: Negative Depression Screening Done: Yes 55136 - PHQ-9 Billing: Yes Source: Developed by Drs. Daljit Ovalle, Merissa Monzon, Nishant Anderson and colleagues, with an educational destini from [employer]. Thrive Questionnaire Date Thrive assessed: 05/04/23 I am a: Patient What is your living situation today?: I have a steady place to live Within the past 12 months, did the food you bought not last and you didn't have the money to get more?: Never true Within the past 12 months, did you worry whether your food would run out before you got money to buy more?: Never true Do you have trouble paying for medicines?: No Do you have trouble getting transportation to medical appointments?: No Do you have trouble paying your heating and electricity bill?: No Do you have trouble taking care of your child, family member or friend?: No Do you have trouble with day-to-day activities such as bathing, preparing meals, shopping, managing finances, etc.?: No Are you currently unemployed and looking for a job?: No Are you interested in more education?: No Please select the resources that you would like help with: None Currently or been in a relationship where the following occur: no concerns reported AUDIT C Alcohol Use Questionnaire (AUDIT-C) 1. How often do you have a drink containing alcohol?: Never 3. How often do you have six or more drinks on one occasion?: Never Total Score: 0 Score Reviewed/Action Taken: Yes BALAJI-7 AMB Questionnaire BALAJI-7 Date BALAJI - 7 assessed: 04/08/23 Feeling nervous, anxious, or on edge: 0 = Not at all Not being able to stop or control worryin = Not at all Worrying too much about different things: 0 = Not at all Trouble relaxin = Not at all Being so restless that it is hard to sit still: 0 = Not at all Becoming easily annoyed or irritable: 0 = Not at all Feeling afraid as if something awful might happen: 0 = Not at all Total BALAJI-7 score (0-4 normal; 5-9 mild; 10-14 moderate; 15-21 severe): 0 Source: Developed by Drs. Daljit Ovalle, Merissa Monzon, Nishant Anderson and colleagues, with an educational destini from [employer]. Review of Systems Const Denies chills, Reports fatigue, Denies fever(s), Denies headache(s) and Denies malaise Eyes Denies blurry vision, Denies change in vision, Denies irritation and Denies itchy eyes ENT Denies dysphagia, Denies dizziness, Denies otalgia, Denies headache(s), Denies nasal congestion, Denies neck pain, Denies odynophagia, Denies sinus pain and Denies sore throat Card Denies chest pain, Denies rapid heart rate, Denies irregular heart rhythm, Denies palpitations and Denies dyspnea Resp Denies chest congestion, Denies cough, Denies dyspnea and Denies wheezing GI Denies abdominal pain, Denies bloating, Reports hematochezia (occasional - has hemorrhoids), Reports constipation (at times), Denies dysphagia, Denies heartburn, Denies diarrhea, Denies nausea, Denies odynophagia and Denies vomiting Denies hematuria, Denies urinary frequency, Denies dysuria, Denies urinary incontinence and Denies urinary urgency Musc Denies back pain, Denies arthralgias, Denies joint swelling, Denies muscle weakness and Denies neck pain Skin/Breast Details: (+) small, slightly hyperpigmented lesion on the left anterior chest wall Denies breast pain, Denies breast mass, Denies change in pigmentation, Denies rash and Denies unusual bruising Neuro Denies dizziness, Denies headache(s) and Denies paresthesias Psych Denies anxiety and Denies depression Endo Reports fatigue and Denies palpitations Massimo/Lymph Denies easy bruising Aller/Immun Denies itchy eyes and Denies wheezing Physical exam (Primary Care) Vital Signs: Last Vital Signs BP 120/70 04/08/23 10:14 Pulse Ox 99 04/08/23 10:14 Oxygen Delivery Method Room Air 04/08/23 10:14 BMI result Body Mass Index 30.5 Tobacco/Smoking Status: Tobacco use Status Tobacco use date assessed 04/08/23 04/08/23 10:25 Patient Tobacco Use Status Former Tobacco user 04/08/23 10:25 Tobacco use type Cigarette 04/08/23 10:25 e-Cigarette/Vaping Use Never Used 04/08/23 10:25 PHQ-9: PHQ-9 Score PHQ-9: Total score 0 04/08/23 10:25 Depression Screening Interpretation: Negative Thrive Assessment: Date of Thrive Assessment Date Thrive assessed 05/04/23 04/08/23 10:25 Currently or been in a relationship where the following occur: no concerns reported Const General: no acute distress, alert and awake Orientation/consciousness: patient oriented x3 HENMT Head: Yes normocephalic and Yes atraumatic Ears: external ears normal, TM's normal bilaterally and EAC's normal General nose exam: No nasal discharge present Face and sinus: Yes normal facial exam and Yes sinuses nontender Teeth and gingiva: dentition normal Throat: Yes posterior oropharynx normal and Yes tonsils normal (no TP congestion) Eyes Eyelids: Yes eyelids normal Conjunctivae: conjunctivae normal Pupils: Equal, round and reactive pupils present EOM: EOMs intact bilaterally Neck Neck: Yes no lymphadenopathy and Yes supple Thyroid: Thyroid normal Resp Auscultation: clear to auscultation bilaterally, no rales and no wheezes Cardio Rate: regular rate Rhythm: regular rhythm Heart sounds: no murmurs GI Palpation (GI): Soft to palpation, nontender and No hepatosplenomegaly present Auscultation: normal bowel sounds General: Yes no CVA tenderness Back/Spine/Pelvis Back: no CVA tenderness Thoracic/Lumbar Spine: thoracic and lumbar spine normal to inspection Skin Other: (+) small, slightly hyperpigmented lesion on the left anterior chest wall - lesion is non-tender on exam Rashes: no rashes Neuro General: patient oriented x3, moves all extremities, no focal motor deficits and CN's II-XI intact bilaterally Cranial nerves: Yes Equal, round and reactive pupils present Cognition (Neuro): normal cognition Gait exam (Neuro): Normal gait present Extrem General: Yes no clubbing, cyanosis or edema Assessment and Plan Assessment & Plan (1) Annual physical exam: Code(s): Z00.00 - Encounter for general adult medical examination without abnormal findings Plan: Check labs She has never had a mammogram done in the past and will be sent for one - this will be her index screen She used to go to [facility] [employer] but had not been back in about 6 years - 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 (2) Iron deficiency anemia: Code(s): D50.9 - Iron deficiency anemia, unspecified Qualifiers: Iron deficiency anemia type: inadequate dietary iron intake Qualified Code(s): D50.8 - Other iron deficiency anemias Plan: Her H/H was still very low at 8.7/29.1 when they were last checked in June 2022 Will recheck her CBC and also her iron function tests as well as a serum ferritin level for follow up She is advised that if she is still anemic and iron deficient on her labs, we will send in a new Rx for oral iron tablets for her Will also refer her to hematology for further evaluation and management (3) Hyperpigmented skin lesion: Comment: over the anterior chest wall, slightly to the left side Code(s): L81.9 - Disorder of pigmentation, unspecified Plan: Patient states that she's had this lesion for a few years now but feels that this has gotten slightly bigger lately Will refer her to dermatology for further evaluation and management (4) Obesity (BMI 30-39.9): Code(s): E66.9 - Obesity, unspecified Plan: Discussed diet/exercise as tolerated/lose weight (5) Breast cancer screening by mammogram: Code(s): Z12.31 - Encounter for screening mammogram for malignant neoplasm of breast Plan: Will send her for annual mammogram - as she has never had a mammogram done in the past, this will be her index screen (6) Cervical cancer screening: Code(s): Z12.4 - Encounter for screening for malignant neoplasm of cervix Plan: She has not been back to see gynecology in about 6 years now - will refer back to gynecology to 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 Plan Follow up in 4 months Orders: Orders Complete Blood Count Auto Diff Today D50.9 - Iron deficiency anemia, unspecified, Z00.00 - Encounter for general adult medical examination without abnormal findings IRON PROFILE Today D50.9 - Iron deficiency anemia, unspecified, Z00.00 - Encounter for general adult medical examination without abnormal findings TSH reflex Free T4 Today D50.9 - Iron deficiency anemia, unspecified, R53.83 - Other fatigue, Z00.00 - Encounter for general adult medical examination without abnormal findings Vitamin D 25-OH Total Today E55.9 - Vitamin D deficiency, unspecified, Z00.00 - Encounter for general adult medical examination without abnormal findings MM tomosynthesis screening BI Today Z12.31 - Encounter for screening mammogram for malignant neoplasm of breast Comprehensive [place]. Panel Fast Today D50.9 - Iron deficiency anemia, unspecified, Z00.00 - Encounter for general adult medical examination without abnormal findings Lipid Panel Today E78.00 - Pure hypercholesterolemia, unspecified, Z00.00 - Encounter for general adult medical examination without abnormal findings UA CC w/rflx Micro + Cult Today R30.0 - Dysuria, Z00.00 - Encounter for general adult medical examination without abnormal findings Vitamin B12 and Folate Today E53.8 - Deficiency of other specified B group vitamins, Z00.00 - Encounter for general adult medical examination without abnormal findings Ferritin Today D50.9 - Iron deficiency anemia, unspecified Referrals FLOTATION OPERATOR Referral Z12.4 - Encounter for screening for malignant neoplasm of cervix Dermatology Referral L81.9 - Disorder of pigmentation, unspecified Hematology & Oncology Referral D50.9 - Iron deficiency anemia, unspecified Coding Level of Care Code New Pt Prev Care 40-64y(55106) Diagnoses Annual physical exam Z00.00 Iron deficiency anemia secondary to inadequate dietary iron intake D50.8 Iron deficiency anemia type: inadequate dietary iron intake Hyperpigmented skin lesion L81.9 Obesity (BMI 30-39.9) E66.9 Breast cancer screening by mammogram Z12.31 Cervical cancer screening Z12.4
[2023-04-08 10:14] VITALS: BP 120/70; O2SAT 99; BMI 30.5
== END 2023-04-08 10:59 | disposition home or self-care (01) ==
PROVIDERS: PCP Internal Medicine; Visit Provider Internal Medicine
DX: Z00.00 Encounter for general adult medical examination without abnormal findings (principal); D50.8 Other iron deficiency anemias; L81.9 Disorder of pigmentation, unspecified
CPT/HCPCS: 99386

== ENCOUNTER 2023-04-08 11:05 | Outpatient (REF) | payer BC, SELFPAY ==
[2023-04-08 12:04] LABS: MANUAL DIFF FLAG NO
[2023-04-08 12:06] LABS: Basophils Percent Auto 0.6 % (0-2); Eosinophils Absolute Auto 0.2 X10*3/uL (0.0-0.4); Hemoglobin 7.8 g/dl (12.0-16.0); Imm Gran Abs Auto 0.02 X10*3/uL (0.00-0.03); Imm Gran Pct Auto 0.3 % (0.0-0.4); Lymphocytes Absolute Auto 2.2 X10*3/uL (1.2-4.9); Lymphocytes Percent Auto 31.1 % (20-40); Mean Corpuscular HGB Conc 26.9 g/dl (31.0-35.0); Mean Corpuscular Hemoglobin 17.4 pg (27.0-33.0); Mean Platelet Volume 10.3 fL (9.4-12.3); Monocytes Absolute Auto 0.5 X10*3/uL (0.1-1.2); Monocytes Percent Auto 7.2 % (2-11); Neutrophils Percent Auto 57.8 % (45-73); Platelet Count 256 X10*3/uL (160-400); Red Blood Count 4.48 X10*6/uL (4.20-5.50)
[2023-04-08 12:07] LABS: Mean Corpuscular Volume 64.7 fL (80.0-98.0)
[2023-04-08 12:18] LABS: Appearance Urine Clear; Color Urine Yellow; Glucose Urine UA Negative (Negative); Leukocyte Esterase Urine Negative (Negative); Nitrite Urine Negative (Negative); PH 5.5 (5.0-9.0); Urine Blood Negative (Negative); Urine Ketones Negative (Negative); Urine Protein Negative (Neg-Trace)
[2023-04-08 13:04] LABS: Alanine Aminotransferase 14 U/L (0-31); Albumin Level 4.5 g/dL (3.5-5.0); Alkaline Phosphatase 76 U/L (39-117); Anion Gap 10 (12-20); Aspartate Amino Transferase 21 U/L (5-31); Bilirubin Total 0.5 mg/dL (0.0-1.0); Blood Urea Nitrogen 10 mg/dL (9-16); Calcium 9.4 mg/dL (8.4-10.2); Carbon Dioxide 23 mmol/L (22-29); Chloride 109 mmol/L (96-108); Cholesterol 159 mg/dL (<200); Estimated Glomerular Filt Rate > 60; Glucose Fasting 86 mg/dL (60-99); HDL Cholesterol 53 mg/dL (>40); Iron 16 mcg/dL (30-160); LDL Cholesterol Calculated 98 mg/dL (<100); Percent Iron Saturation 4 % (15-50); Potassium 4.2 mmol/L (3.3-5.1); Sodium 138 mmol/L (135-145); Total Iron Binding Capacity 424 mcg/dL (228-428); Total Protein 8.2 g/dL (6.5-8.0); Triglycerides 42 mg/dL (<150); Unsaturated Iron Binding 408 ug/dL
[2023-04-08 13:25] LABS: Ferritin 3 ng/mL (10-250); TSH reflex Free T4 0.76 uIU/mL (0.32-4.0); Vitamin D 25-OH Total 11.6 ng/mL (>30)
[2023-04-08 13:51] LABS: Folate 3.8 ng/mL (> or = 4.0); Vitamin B12 690 pg/mL (200-900)
== END 2023-04-08 11:06 | disposition home or self-care (01) ==
LOC: HO.LAB 11:05
PROVIDERS: PCP Internal Medicine; Visit Provider Internal Medicine
DX: Z00.00 Encounter for general adult medical examination without abnormal findings (principal); D50.9 Iron deficiency anemia, unspecified; E78.00 Pure hypercholesterolemia, unspecified; R53.83 Other fatigue; E55.9 Vitamin D deficiency, unspecified; R30.0 Dysuria; E53.8 Deficiency of other specified B group vitamins
CPT/HCPCS: 36415; 80053; 80061; 81003; 82306; 82607; 82728; 82746; 83540; 84443; 85025

== ENCOUNTER → 2023-04-27 10:13 | Outpatient (BNV) | payer BC, SELFPAY | PROVIDERS: PCP Internal Medicine; Visit Provider Internal Medicine | DX: D50.9 Iron deficiency anemia, unspecified (principal) | CPT/HCPCS: 99204; 99213; 99214 ==

== ENCOUNTER 2023-05-03 11:11 | Emergency (ER) | payer BC, SELFPAY ==
--- NOTE | ~2023-05-03 | CT_ITS ---
EXAMINATION: CT HEAD WITHOUT CONTRAST CLINICAL INFORMATION: Pain to left lower base of skull COMPARISON: None available. TECHNIQUE: Contiguous axial imaging was performed from the skull base to vertex without intravenous administration of contrast. This CT examination was performed using dose optimization techniques as appropriate, variously including the following: *Automated exposure control *Adjustment of mA and/or kV according to patient size (this includes techniques or standardized protocols for targeted exams where dose is matched to indication/reason for exam; i.e. extremities or head) *Use of iterative reconstruction technique DLP: 593 mGy-cm FINDINGS: The ventricles and sulci are normal in size and configuration. No acute hemorrhage, mass effect or shift is evident. Bearden-white differentiation is maintained. In the posterior fossa, the brainstem, cerebellum and fourth ventricle image normally. The orbits and calvarium are intact. The paranasal sinuses and mastoid air cells are well pneumatized and clear. Bilateral stylohyoid ligament calcifications are incidentally noted, an incompletely imaged, and can be a cause of dysphagia or neck pain. CT/CT head/brain wo IV con IMPRESSION: 1. Unremarkable noncontrast brain CT. No acute hemorrhage, mass effect or shift. 2. Bilateral stylohyoid ligament calcification, incompletely imaged, which can be a cause of neck pain and/or dysphagia.
[2023-05-03 11:42] VITALS: BP 112/60; PULSE 78; RESP 18; TEMP 36.7; O2SAT 100; BMI 30.6
--- NOTE | 2023-05-03 11:42 | ED.GENADULT ---
HPI - General Adult General Chief complaint: Headache Stated complaint: pain base of skull Time Seen by Provider: 05/03/23 17:19 Source: patient and RN notes reviewed Mode of arrival: ambulatory Limitations: no limitations History of Present Illness HPI narrative: This is a 42-year-old female presenting to the emergency department with complaints of left-sided neck pain since last week. Patient reports that last week she noticed some pain in the left side of her neck. She reports that the pain worsens with palpation. She reports slight headache. No recent trauma or injury. No fevers, chills, photophobia. No numbness, tingling or weakness. No dizziness or lightheadedness. No other complaints or concerns at this time. complaint: Neck pain Onset (ago): week(s) Location: neck Radiation: non-radiation Severity: moderate Quality: aching Pain Consistency: constant Relieving factors: none Exacerbating factors: movement Associated symptoms: denies other symptoms Treatments prior to arrival: none Related Data Home Medications Medication Instructions Recorded Confirmed ibuprofen 600 mg tablet 600 mg PO Q6H PRN pain 04/08/23 04/27/23 Previous Rx's Medication Instructions Recorded cholecalciferol (vitamin D3) 50 50 mcg PO DAILY 90 days #90 caps 04/11/23 mcg (2,000 unit) capsule multivitamin with iron (Daily 1 tab PO DAILY #100 tabs 04/11/23 Multiple Vitamins with Iron tablet) Allergies Allergy/AdvReac Type Severity Reaction Status Date / Time codeine [CODEINE] Allergy Intermediate VOMITING Verified 04/27/23 10:28 oxycodone [OXYCODONE] Allergy Intermediate VOMITING Verified 04/27/23 10:28 trazodone [TRAZODONE] Allergy Intermediate NAUSEA & Verified 04/27/23 10:28 VOMITING opiates Allergy Unknown vomiting Uncoded 04/27/23 10:28 Review of Systems Review of Systems: Yes all other systems are reviewed and are negative Constitutional: Constitutional: Reports as per HPI [facility] Past Medical History Medical History (Updated 05/04/23 @ 00:00 by Manuel Smith) Biliary colic Kidney stones Obesity (BMI 30-39.9) Iron deficiency anemia Surgical History (Updated 04/27/23 @ 10:29 by Juju Armstrong MD) H/O section (~10/2016) Hx of tonsillectomy (~1993) Family History Family History Father Bipolar disorder Fibromyalgia Hypertension CVA (cerebral vascular accident) Cardiovascular disease Maternal Grandmother Lung cancer Social History Social History (Updated 04/27/23 @ 10:28 by Stacie New) Household Members: Significant Other and Children Housing: House Alcohol intake: never Patient Tobacco Use Status: Former Tobacco user Quit Date: 06/2005 Tobacco use type: Cigarette e-Cigarette/Vaping Use: Never Used service: No Current occupational status: employed Current occupation: [employer] Cognitive needs: No Hearing needs: No Vision needs: Yes Physical Exam ED Vital Signs: Vital Signs - 24 hr 05/03/23 11:42 Temperature 98.1 F Pulse Rate 78 Respiratory Rate 18 Blood Pressure 112/60 Pulse Oximetry 100 Oxygen Delivery Method Room Air BMI result Body Mass Index 30.6 Const General: cooperative, comfortable and no acute distress Orientation/consciousness: patient oriented x3 Limitations: no limitations HENMT Head: Yes normal to inspection, Yes normocephalic and Yes atraumatic Ears: hearing grossly normal bilaterally General nose exam: Normal external nose present Face and sinus: Yes normal facial exam Mouth: Normal oral and palatal mucosa present, oropharynx normal and moist mucous membranes Throat: Yes posterior oropharynx normal Eyes General: appearance normal, both eyes and all related structures Eyelids: Yes eyelids normal Conjunctivae: conjunctivae normal Sclerae: sclerae normal Pupils: Equal, round and reactive pupils present EOM: EOMs intact bilaterally Neck Other: Pt with TTP over the occiput and and insertion site of sternocleidomastoid muscle. No nuchal rigidity. No midline c-spine ttp. Neck: Yes normal visual inspection and Yes full ROM Lymphatic: no lymphadenopathy noted Chest Chest palpation & inspection: normal inspection of the chest Resp Effort & Inspection: normal respiratory effort and able to speak in complete sentences Auscultation: clear to auscultation bilaterally, no crackles, no rales, no rhonchi and no wheezes Cardio Rate: regular rate Rhythm: regular rhythm Heart sounds: S1 normal heart sound present and S2 normal heart sound present GI Inspection: Yes normal to inspection Skin General skin exam: no rashes or lesions noted Trauma: no lacerations or abrasions Wounds: no wounds Neuro General: patient oriented x3 and moves all extremities Cranial nerves: Yes CN's II-XII intact bilaterally, Yes Equal, round and reactive pupils present, Yes Bilaterally intact EOM present, Yes Nystagmus not present, Yes Normal facial strength present, Yes Midline tongue present, Yes Ability to bilaterally rotate head present and Yes Ability to bilaterally elevate shoulders present Cognition (Neuro): normal cognition Gait exam (Neuro): Normal gait present Motor exam (neuro): 5/5 motor strength present throughout and Pronator motor function not present Extrem General: Yes normal to inspection Right upper extremity: normal to inspection Left upper extremity: normal to inspection Right lower extremity: normal to inspection Left lower extremity: normal to inspection NIH Stroke Scale Internal: Initial- Upon Arrival Level of Consciousness: Alert Level of Consciousness Questions: Answers both questions correctly Level of Consciousness Commands: Performs both tasks correctly Best Gaze: Normal Visual: No visual loss Facial Palsy: Normal Motor Arm (Right): No drift Motor Arm (Left): No drift Motor Leg (Right): No drift Motor Leg (Left): No drift Limb Ataxia: Absent Sensory: Normal Best Language: No aphasia Dysarthia: Normal Extinction and Inattention: No abnormality Score: 0 Course Course Course Narrative: This is a rapid medical exam: Additional HPI, ROS, PE not included below will be deferred to primary provider. Patient is a 42-year-old female presenting to the ED with complaint of pain to base of skull on left side. Though was a neck strain at onset of symptoms, today pain worsened. Reports low H&H, but has not started infusions yet. Denies history of migraines. Denies fevers. States pain is currently 5 or 6/10. Took ibuprofen yesterday without change in symptoms. Reports nausea, denies vomiting. Denies photophobia. Reports father had a stroke in his early 50's. Described pain as in the bone, not a headache. Plan: CT head Medical Decision Making Medical Decision Making MDM Narrative: 42 y/o F presenting to the ER wtih complaints of left sided neck pain for the last week. No trauma or injury. On arrival, pt nontoxic appearing, with full ROM of the neck. Pt with TTP over the occiput anad and insertion site of sternocleidomastoid muscle. Neck is soft with no meningeal signs. She is NV intact. CT head was obtained which revealed Bilateral stylohyoid ligament calcification, incompletely imaged, which can be a cause of neck pain and/or dysphagia. Discussed findings with my attending physician, Dr. Damian. Discussed findings with pt and given ENT follow up for further evaluation. Advised to take ibuprofen/tylenol for pain. Given return precautions. Pt understands and agrees with plan. Stable for d/c. Differential Diagnosis Differential Diagnoses: The differential diagnosis associated with the presentation includes ICH, meningitis - unlikely, tension headache, torticolis Admission/Observation Consideration of admission/observation: Escalation of care including admission/observation considered Patient would have been admitted to the hospital had her work up had any findings where hospital admission was appropriate and her clinical presentation warranted hospital admission. Lab Data MDM Lab Attestation statement: I reviewed the patient's lab results. Independent Interpretation I performed an independent interpretation of an: CT Scan Interpretation: Ordering Physician: Natalia Agudelo NP Date of Service: 05/03/23 Procedure(s): CT head/brain wo IV con Accession Number(s): [id number] cc: Alireza Domínguez MD; Natalia Agudelo NP~ EXAMINATION: CT HEAD WITHOUT CONTRAST CLINICAL INFORMATION: Pain to left lower base of skull COMPARISON: None available. TECHNIQUE: Contiguous axial imaging was performed from the skull base to vertex without intravenous administration of contrast. This CT examination was performed using dose optimization techniques as appropriate, variously including the following: *Automated exposure control *Adjustment of mA and/or kV according to patient size (this includes techniques or standardized protocols for targeted exams where dose is matched to indication/reason for exam; i.e. extremities or head) *Use of iterative reconstruction technique DLP: 593 mGy-cm FINDINGS: The ventricles and sulci are normal in size and configuration. No acute hemorrhage, mass effect or shift is evident. Bearden-white differentiation is maintained. In the posterior fossa, the brainstem, cerebellum and fourth ventricle image normally. The orbits and calvarium are intact. The paranasal sinuses and mastoid air cells are well pneumatized and clear. Bilateral stylohyoid ligament calcifications are incidentally noted, an incompletely imaged, and can be a cause of dysphagia or neck pain. CT/CT head/brain wo IV con IMPRESSION: 1. Unremarkable noncontrast brain CT. No acute hemorrhage, mass effect or shift. 2. Bilateral stylohyoid ligament calcification, incompletely imaged, which can be a cause of neck pain and/or dysphagia. Dictated By: Tom Cohn MD Radiology Impression Discussion of test interpretation with radiology: I have reviewed the radiologist's reading. External Record Review External record reviewed: Inpatient record, Office record, Outpatient record, Prior outpatient labs, Prior outpatient radiology, Primary care record and Outside ED record Discharge Plan Discharge Clinical Impression: Neck pain, Calcification of ligament Patient Disposition: Home, Self-Care Instructions: Neck Pain (ED) Additional Instructions: Your CT head revealed a bilateral stylohyoid ligament calcifications. This can cause neck pain or you may have some muscle spasms and pain of the muscle in your neck. Please follow-up with your primary care physician, call tomorrow to make an appointment. You may take ibuprofen and Tylenol as needed for pain. You may apply warm compresses, and gentle massage can also help with your symptoms. I am also giving your referral to institutional research coordinator, please call to make an appointment. If any new or worsening symptoms occur including but not limited to worsening pain, headaches, weakness, numbness, decreased range of motion of her neck, please return to the emergency department. Prescriptions: No Action multivitamin with iron [Daily Multiple Vitamins/Iron] Tablet 1 tab PO DAILY Qty: 100 3RF cholecalciferol (vitamin D3) 50 mcg (2,000 unit) capsule 50 mcg PO DAILY 90 Days Qty: 90 3RF ibuprofen 600 mg tablet 600 mg PO Q6H PRN (Reason: pain) Rx Instructions: Take with food Referrals: Luis Daniel Rdz [Physician] - Interventions: ED Discharge Assessment Last Done: 05/03/23 18:30 Discharge Date/Time: 05/03/23 18:30
== END 2023-05-03 18:30 | disposition home or self-care (01) ==
PROVIDERS: Emergency Provider Internal Medicine; PCP Internal Medicine
DX: R51.9 Headache, unspecified (principal); M54.2 Cervicalgia; Z87.891 Personal history of nicotine dependence
CPT/HCPCS: 70450; 99282; 99284

== ENCOUNTER 2023-05-07 08:01 | Outpatient (REF) | payer BC, SELFPAY ==
--- NOTE | ~2023-05-07 | MM_ITS ---
EXAMINATION: MM SCREENING DIGITAL BREAST TOMOSYNTHESIS, BILATERAL CLINICAL INFORMATION: Screening. Asymptomatic. COMPARISON: Mammography: This is a baseline mammogram. TECHNIQUE: Digital breast tomosynthesis is performed in both the craniocaudal and mediolateral oblique views along with computer-aided detection (CAD). Synthesized 2D images are generated from the tomosynthesis. FINDINGS: The breasts are heterogeneously dense, which may obscure small masses (ACR BI-RADS breast composition Category c). There are no significant masses, abnormal calcifications, or other abnormalities. MM/MM tomosynthesis screening BI IMPRESSION: No mammographic evidence of malignancy. ASSESSMENT: BI-RADS BI-RADS 1 - Negative RECOMMENDATION: Routine annual mammography screening. 1 year F/U This examination should not preclude the clinical evaluation of a suspicious palpable abnormality. This patient's information was entered into a reminder system with a target due date for their next mammogram.
== END 2023-05-07 08:02 | disposition home or self-care (01) ==
LOC: HO.MAMMO 08:01
PROVIDERS: PCP Internal Medicine; Visit Provider Internal Medicine
DX: Z12.31 Encounter for screening mammogram for malignant neoplasm of breast (principal)
CPT/HCPCS: 77063; 77067

== ENCOUNTER → 2023-05-07 08:15 | Outpatient (BNV) | payer BC, SELFPAY | PROVIDERS: PCP Internal Medicine; Visit Provider Radiology Diagnostic Radiology | DX: Z12.31 Encounter for screening mammogram for malignant neoplasm of breast (principal) | CPT/HCPCS: 77063; 77067 ==

== ENCOUNTER 2023-05-19 08:49 | Outpatient (REF) | payer BC, SELFPAY | END 2023-05-19 08:50 | disposition home or self-care (01) | LOC: HO.MDS 08:49 | PROVIDERS: Visit Provider Internal Medicine | DX: D50.8 Other iron deficiency anemias (principal) | CPT/HCPCS: 96365; J1756 ==

== ENCOUNTER 2023-05-26 12:20 | Outpatient (REF) | payer BC, SELFPAY | END 2023-05-26 12:21 | disposition home or self-care (01) | LOC: HO.MDS 12:20 | PROVIDERS: Visit Provider Internal Medicine | DX: D50.9 Iron deficiency anemia, unspecified (principal) | CPT/HCPCS: 96365; J1756 ==

== ENCOUNTER 2023-06-10 09:47 | Outpatient (REF) | payer BC, SELFPAY | END 2023-06-10 09:48 | disposition home or self-care (01) | LOC: HO.MDS 09:47 | PROVIDERS: Visit Provider Internal Medicine | DX: D50.9 Iron deficiency anemia, unspecified (principal) | CPT/HCPCS: 96365; J1756 ==

== ENCOUNTER 2023-06-17 08:53 | Outpatient (REF) | payer BC, SELFPAY | END 2023-06-17 08:54 | disposition home or self-care (01) | LOC: HO.MDS 08:53 | PROVIDERS: Visit Provider Internal Medicine | DX: D50.9 Iron deficiency anemia, unspecified (principal) | CPT/HCPCS: 96365; J1756 ==

== ENCOUNTER 2023-06-24 09:20 | Outpatient (REF) | payer BC, SELFPAY | END 2023-06-24 09:21 | disposition home or self-care (01) | LOC: HO.MDS 09:20 | PROVIDERS: Visit Provider Internal Medicine | DX: D50.9 Iron deficiency anemia, unspecified (principal) | CPT/HCPCS: 96365; J1756 ==

== ENCOUNTER 2023-07-15 13:05 | Outpatient (AMB) | payer BC, SELFPAY ==
[2023-07-15 13:13] VITALS: BP 106/72; BMI 31.6
--- NOTE | 2023-07-15 13:13 | MHC.OFFVIS ---
Intake Vital Signs 07/15/23 13:13 Height 5 ft 4 in Weight 184 lb BMI 31.6 BP 106/72 Intake Visit Reasons: New patient Annual China Painter Required: No Information Interpreted: non-clinical & clinical Quality Internship: Quality Internship Present (Cedricyn) Allergies codeine [CODEINE] Allergy (Intermediate, Verified 07/15/23 13:15) VOMITING oxycodone [OXYCODONE] Allergy (Intermediate, Verified 07/15/23 13:15) VOMITING trazodone [TRAZODONE] Allergy (Intermediate, Verified 07/15/23 13:15) NAUSEA & VOMITING opiates Allergy (Unknown, Uncoded 07/15/23 13:15) vomiting Medication List - Last Reconciled 07/15/23 by aPula Dominique CNM cholecalciferol (vitamin D3) 50 mcg PO DAILY 90 days ibuprofen 600 mg PO Q6H PRN multivitamin with iron (Daily Multiple Vitamins with Iron tablet) 1 tab PO DAILY Is last menstrual period known: Yes Last menstrual period: 07/11/23 Post menopausal: No HPI New patient Annual HPI Details 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 She has had vaginal births in this practice before and she had a in 2017 could she was postdates and her baby just did not want to come out. She is being induced at 42 weeks and the induction got put off a little bit and then when they were trying to help her dilate every time she had have a contraction the baby's heartbeat would go down so they did a . The baby was fine. She was found recently to be extremely anemic though she said there was no reason found she received iron transfusions and felt better and has a follow-up visit in July. She says she thinks she also has follow-up visits with Gastroenterology but she does not believe she has any other bleeding site anywhere and she does not believe she has heavy periods they are for her normal last 3-4 days in her the same as they have always been and not particularly heavy. She uses spermicidal jelly for control but also she uses fertility awareness and awareness of when she is ovulating. She reports a lifelong history of insomnia and she has a fan on in her bedroom and that does not really make much of a difference she sometimes needs sound to fall asleep either TV or radio or something else. If she does not have that she can not fall asleep at all she does not think that the light from the TV disturbs her sleep in any way and usually she said her head is covered with the covers. Her father has the same issue and he is on multiple medication and herbal remedies but she finds that they affect her somewhat differently so she is resisting using them if she does not have to accept when she really needs to [facility] Medical History Biliary colic Kidney stones Obesity (BMI 30-39.9) Iron deficiency anemia Surgical History H/O section (~10/2016) Hx of tonsillectomy (~1993) Family History Father Bipolar disorder Fibromyalgia Hypertension CVA (cerebral vascular accident) Cardiovascular disease Maternal Grandmother Lung cancer Social History Household Members: Significant Other and Children Housing: House Alcohol intake: never Patient Tobacco Use Status: Former Tobacco user Quit Date: 06/2005 Tobacco use type: Cigarette e-Cigarette/Vaping Use: Never Used service: No Current occupational status: employed Current occupation: [employer] Cognitive needs: No Hearing needs: No Vision needs: Yes Female Reproductive History Menstrual Age of Menarche: 10 Duration of menses: 3-5 days Date of last menstrual period: 07/11/23 control method: other (spermicidal jelly) Total pregnancies: 3 Full term: 2 Number of Living Children: 2 Ab induced: 1 Date of last pap smear: 01/06/17 (negative) History of abnormal pap smear: No Date of Mammogram: 05/07/23 Physical Exam Vital Signs: Last Vital Signs BP 106/72 07/15/23 13:13 BMI result Body Mass Index 31.6 Const General: healthy appearing, comfortable, no acute distress, well developed and alert Nutritional Appearance: average body habitus Orientation/consciousness: patient oriented x3 Limitations: no limitations HEENT Head: Yes normocephalic Neck Neck: Yes normal visual inspection Chest Chest palpation & inspection: normal inspection of the chest Breast/axilla inspection: normal inspection of the breasts and normal inspection of the axillae Breast/axilla palpation: normal palpation of the breasts and normal palpation of the axillae Resp Effort & Inspection: normal respiratory effort GI Inspection: Yes normal to inspection, No Abdominal wall edema and No distended Palpation (GI): Soft to palpation and nontender Other: Multiparous cervix did bleed with touch of speculum uterus is normal size mobile nontender good tone with Kegel. General: Yes bladder normal to palpation External Female Exam: normal external appearance and normal appearance of the urethra Speculum Exam - Vagina: normal appearance of the vagina, normal palpation and normal vaginal discharge Speculum Exam - Cervix: normal appearance of the cervix, normal palpation and nontender Bimanual exam- vagina & uterus: normal bimanual exam, normal palpation, uterine size normal, bladder normal to palpation, consistency normal, normal palpation, uterine mobility normal, uterine shape normal, No Cervical tenderness present, non-tender and no cervical motion tenderness Bimanual Exam- Adnexa, other: normal adnexae, no masses, normal and No adnexal tenderness Neuro General: patient oriented x3 Results Reviewed Results Reviewed: Name: Rosio Rutherford Age/Sex: 42/F : 1980 Unit#: [id number] Attend Dr: Juju Armstrong MD Re04/27/23 Status: REG [facility]: SPEC : [id number] JAMES: 04/27/23 STATUS: COMP REQ : [id number] RECD: 04/27/[address]: Juju Armstrong MD COMP: 04/27/23 ENTERED: 04/27/[address]: Alireza Domínguez MD ORDERED: CBC No Diff, Retic/R Test Result Flag Reference WBC 7.4 4.8-10.8 X10*3/uL RBC 4.23 4.20-5.50 X10*6/uL HGB 7.5 L 12.0-16.0 g/dl HCT 28.1 L 37.0-47.0 % MCV 66.4 L 80.0-98.0 fL MCH 17.7 L 27.0-33.0 pg MCHC 26.7 L 31.0-35.0 g/dl RDW 21.4 H 11.0-16.0 % PLT 291 160-400 X10*3/uL MPV 10.4 9.4-12.3 fL NRBC Pct Auto 0.0 0.0-0.2 /100WBC NRBC Abs Auto 0.000 0.0-0.012 X10*3/uL Retic Abs 0.112 H 0.026-0.095 X10*6/uL IMM RETIC FRACT 21.7 H 3.0-15.9 % Retic HGB Equiv 18.0 L 30.0-35.0 pg Retic Pct 2.7 H 0.5-1.8 % Assessment & Plan Assessment & Plan (1) Iron deficiency anemia: Code(s): D50.9 - Iron deficiency anemia, unspecified Qualifiers: Iron deficiency anemia type: inadequate dietary iron intake Qualified Code(s): D50.8 - Other iron deficiency anemias (2) Obesity (BMI 30-39.9): Code(s): E66.9 - Obesity, unspecified (3) Breast cancer screening by mammogram: Code(s): Z12.31 - Encounter for screening mammogram for malignant neoplasm of breast (4) Cervical cancer screening: Code(s): Z12.4 - Encounter for screening for malignant neoplasm of cervix (5) control counseling: Code(s): Z30.09 - Encounter for other general counseling and advice on contraception (6) Insomnia: Code(s): G47.00 - Insomnia, unspecified Plan -----Discussed in this visit the following: healthy balanced diet, regular and consistent exercise, getting recommended health screens, doing the best she can for her particular health concerns, kegel exercises, pap smear screening and followup recommendations, mammography screening and SBE, normal changes in cycles in her life stage--- .----I reviewed available options for Control Methods and their associated side effect profiles. In particular, we discussed the method most of interest to her. Supported her augmenting the use of spermicide along with careful attention to when she believes she is ovulating as spermicide alone is not all that effective. Discussed that if it is thought that there can be no other reason for the anemia found and consideration is given towards lightening up her periods a Mirena may be the only recommendation to consider. Discussed rationale Also spent some time invest to getting with her what possible things she can do to ameliorate her insomnia. She feels that any electronics in her bedroom or ambient light or sound are not contributing to it as the problem pre-existed those things. She will be getting her hemoglobin c.hecked with hematology next month Orders: Orders Bacterial Vaginosis Panel Today Z11.3 - Encounter for screening for infections with a predominantly sexual mode of transmission CT NG by PCR Today Z11.3 - Encounter for screening for infections with a predominantly sexual mode of transmission Pap Smear Today Z12.4 - Encounter for screening for malignant neoplasm of cervix Coding Level of Care Code New Pt Prev Care 40-64y([id number]) Diagnoses Iron deficiency anemia secondary to inadequate dietary iron intake D50.8 Iron deficiency anemia type: inadequate dietary iron intake Obesity (BMI 30-39.9) E66.9 Breast cancer screening by mammogram Z12.31 Cervical cancer screening Z12.4 control counseling Z30.09 Insomnia G47.00
== END 2023-07-15 14:49 | disposition home or self-care (01) ==
LOC: HO.HWS 13:05
PROVIDERS: PCP Internal Medicine; Visit Provider Advanced Practice Midwife
DX: Z01.419 Encounter for gynecological examination (general) (routine) without abnormal findings (principal); D50.8 Other iron deficiency anemias; E66.9 Obesity, unspecified; Z68.31 Body mass index [BMI] 31.0-31.9, adult
CPT/HCPCS: 99386

== ENCOUNTER 2023-07-15 13:05 | Outpatient (REF) | payer BC, SELFPAY ==
[2023-07-16 10:02] LABS: CT PCR NOT DETECTED (Not Detect.); NG PCR NOT DETECTED (Not Detect.)
[2023-07-16 11:37] LABS: BV Int Neg Control Negative (Negative); BV Int Pos Control Positive (Positive)
[2023-07-23 03:59] LABS: HPV mRNA E6/E7 rflx Not Detected (Not Detected)
== END 2023-07-15 13:06 | disposition home or self-care (01) ==
LOC: HO.LNP 13:05
PROVIDERS: PCP Internal Medicine; Visit Provider Advanced Practice Midwife
DX: Z12.4 Encounter for screening for malignant neoplasm of cervix (principal); Z11.51 Encounter for screening for human papillomavirus (HPV); Z20.2 Contact with and (suspected) exposure to infections with a predominantly sexual mode of transmission; D50.8 Other iron deficiency anemias; E66.9 Obesity, unspecified
CPT/HCPCS: 0353U; 87480; 87510; 87624; 87660; 88142

== ENCOUNTER 2023-09-07 13:11 | Outpatient (AMB) | payer BC, SELFPAY ==
[2023-09-07 13:14] VITALS: BP 112/70; PULSE 78; O2SAT 97; BMI 32.3
--- NOTE | 2023-09-07 13:14 | MHC.PC.OV ---
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 Allergies codeine [CODEINE] Allergy (Intermediate, Verified 09/07/23 14:07) VOMITING oxycodone [OXYCODONE] Allergy (Intermediate, Verified 09/07/23 14:07) VOMITING trazodone [TRAZODONE] Allergy (Intermediate, Verified 09/07/23 14:07) NAUSEA & VOMITING opiates Allergy (Unknown, Uncoded 09/07/23 14:07) vomiting Medication List - Last Reconciled 09/07/23 by Alireza Domínguez MD cholecalciferol (vitamin D3) 50 mcg PO DAILY 90 days ibuprofen 600 mg PO Q6H PRN multivitamin with iron (Daily Multiple Vitamins with Iron tablet) 1 tab PO DAILY Tobacco use date assessed: 09/07/23 Dental Screening Dental Screen Date: 09/07/23 Did you have a dental visit in the last 12 months?: No Did you have a dental problem in the last 6 months where you did not have access to dental care?: No HPI 4 month f/u HPI Details Patient comes in today for her follow up visit States that she feels okay but is starting to experience fatigue again recently States that she received a total of 5 doses of IV iron infusion over the past few months and was feeling a lot better and less fatigued until recently She denies any headaches or dizziness Denies any chest pains, no increased SOB No nausea/vomiting, no abdominal pain No change in bowel habits noted Adds that she has seen some blood in her stool at times - thinks that this is likely from her hemorrhoids She had some repeat CBC done last month and is scheduled to see Dr. Armstrong for follow up in January 2024 She is currently on Multivitamins with Iron and Vitamin D3 but admits that she forgets to take them sometimes Adds that she was referred to dermatology gideon in March 2023 but states that she has not heard back at all from dermatology about scheduling her for an appointment so far [facility] Medical History (Updated 09/07/23 @ 14:11 by Alireza Domínguez MD) Vitamin D deficiency Biliary colic Kidney stones Obesity (BMI 30-39.9) Iron deficiency anemia Surgical History H/O section (~10/2016) Hx of tonsillectomy (~1993) Family History Father Bipolar disorder Fibromyalgia Hypertension CVA (cerebral vascular accident) Cardiovascular disease Maternal Grandmother Lung cancer Social History Household Members: Significant Other and Children Housing: House Alcohol intake: never Patient Tobacco Use Status: Former Tobacco user Quit Date: 06/2005 Tobacco use type: Cigarette e-Cigarette/Vaping Use: Never Used service: No Current occupational status: employed Current occupation: [employer] Cognitive needs: No Hearing needs: No Vision needs: Yes Female Reproductive History Menstrual Age of Menarche: 10 Questionnaire PHQ-9 Over the last 2 weeks, how often have you been bothered by any of the following problems? 1. Little interest or pleasure in doing things: not at all 2. Feeling down, depressed, or hopeless: several days 3. Trouble falling or staying asleep, or sleeping too much: not at all 4. Feeling tired or having little energy: not at all 5. Poor appetite or overeating: not at all 6. Feeling bad about yourself - or that you are a failure or have let yourself or your family down: not at all 7. Trouble concentrating on things, such as reading the newspaper or watching television: not at all 8. Moving or speaking so slowly that other people could have noticed. Or the opposite - being so fidgety or restless that you have been moving around a lot more than usual: not at all 9. Thoughts that you would be better off or of hurting yourself in some way: not at all Total score: 1 Depression Screening Interpretation: Negative Depression Screening Done: Yes 33873 - PHQ-9 Billing: Yes Source: Developed by Drs. Daljit Ovalle, Merissa Monzon, Nishant Anderson and colleagues, with an educational destini from [employer]. Thrive Questionnaire Date Thrive assessed: 09/07/23 I am a: Patient What is your living situation today?: I have a steady place to live Within the past 12 months, did the food you bought not last and you didn't have the money to get more?: Never true Within the past 12 months, did you worry whether your food would run out before you got money to buy more?: Never true Do you have trouble paying for medicines?: No Do you have trouble getting transportation to medical appointments?: No Do you have trouble paying your heating and electricity bill?: No Do you have trouble taking care of your child, family member or friend?: No Do you have trouble with day-to-day activities such as bathing, preparing meals, shopping, managing finances, etc.?: No Are you currently unemployed and looking for a job?: No Are you interested in more education?: No Please select the resources that you would like help with: None Currently or been in a relationship where the following occur: no concerns reported THRIVE Score: 0 AUDIT C Alcohol Use Questionnaire (AUDIT-C) 1. How often do you have a drink containing alcohol?: Never 3. How often do you have six or more drinks on one occasion?: Never Total Score: 0 Score Reviewed/Action Taken: Yes BALAJI-7 AMB Questionnaire BALAJI-7 Date BALAJI - 7 assessed: 09/07/23 Feeling nervous, anxious, or on edge: 0 = Not at all Not being able to stop or control worryin = Not at all Worrying too much about different things: 0 = Not at all Trouble relaxin = Not at all Being so restless that it is hard to sit still: 0 = Not at all Becoming easily annoyed or irritable: 0 = Not at all Feeling afraid as if something awful might happen: 0 = Not at all Total BALAJI-7 score (0-4 normal; 5-9 mild; 10-14 moderate; 15-21 severe): 0 Source: Developed by Drs. Daljit Ovalle, Merissa Monzon, Nishant Anderson and colleagues, with an educational destini from [employer]. Review of Systems Const Denies chills, Reports fatigue (lately), Denies fever(s) and Denies headache(s) ENT Denies dysphagia, Denies dizziness, Denies otalgia, Denies headache(s), Denies neck pain, Denies odynophagia and Denies sore throat Card Denies chest pain, Denies palpitations and Denies dyspnea Resp Denies cough and Denies dyspnea GI Denies abdominal pain, Reports hematochezia (at times), Denies constipation, Denies dysphagia, Denies heartburn, Denies diarrhea, Denies nausea, Denies odynophagia and Denies vomiting Denies difficulty voiding, Denies nocturia, Denies dysuria and Denies urinary urgency Musc Denies neck pain Skin/Breast Denies rash Neuro Denies dizziness and Denies headache(s) Endo Reports fatigue (lately) and Denies palpitations Physical exam (Primary Care) Vital Signs: Last Vital Signs Pulse 78 09/07/23 13:14 BP 112/70 09/07/23 13:14 Pulse Ox 97 09/07/23 13:14 Oxygen Delivery Method Room Air 09/07/23 13:14 BMI result Body Mass Index 32.3 Tobacco/Smoking Status: Tobacco use Status Tobacco use date assessed 09/07/23 09/07/23 13:19 Patient Tobacco Use Status Former Tobacco user 09/07/23 13:19 Tobacco use type Cigarette 09/07/23 13:19 e-Cigarette/Vaping Use Never Used 09/07/23 13:19 PHQ-9: PHQ-9 Score PHQ-9: Total score 1 09/07/23 13:19 Depression Screening Interpretation: Negative Thrive Assessment: Date of Thrive Assessment Date Thrive assessed 09/07/23 09/07/23 13:19 Currently or been in a relationship where the following occur: no concerns reported Const General: no acute distress and alert HENMT Throat: Yes posterior oropharynx normal and Yes tonsils normal (no TP congestion) Neck Neck: Yes no lymphadenopathy and Yes supple Resp Auscultation: clear to auscultation bilaterally, no rales and no wheezes Cardio Rate: regular rate Rhythm: regular rhythm Heart sounds: no murmurs GI Palpation (GI): Soft to palpation and nontender Auscultation: normal bowel sounds General: Yes no CVA tenderness Back/Spine/Pelvis Back: no CVA tenderness Skin Rashes: no rashes Extrem General: Yes no clubbing, cyanosis or edema Results Reviewed Results Reviewed: Laboratory Tests 04/08/23 04/08/23 04/08/23 11:12 11:24 11:25 WBC 7.0 Hgb 7.8 L Hct 29.0 L Plt Count 256 D Sodium 138 Potassium 4.2 Creatinine 0.76 Estimated GFR > 60 Fasting Glucose 86 Calcium 9.4 Iron 16 L TIBC 424 % Saturation 4 L AST 21 ALT 14 Triglycerides 42 Cholesterol 159 LDL Cholesterol, Calc 98 HDL Cholesterol 53 Vitamin B12 690 25-OH Vitamin D Total 11.6 L TSH 0.76 Ur Specific [place] 1.020 Urine Protein Negative Urine Glucose (UA) Negative Urine Blood Negative Urine Nitrite Negative Ur Leukocyte Esterase Negative 08/03/23 08:53 WBC 7.7 Hgb 12.8 D Hct 40.1 D Plt Count 206 D Sodium Potassium Creatinine Estimated GFR Fasting Glucose Calcium Iron TIBC % Saturation AST ALT Triglycerides Cholesterol LDL Cholesterol, Calc HDL Cholesterol Vitamin B12 25-OH Vitamin D Total TSH Ur Specific [place] Urine Protein Urine Glucose (UA) Urine Blood Urine Nitrite Ur Leukocyte Esterase Assessment and Plan Assessment & Plan (1) Iron deficiency anemia: Code(s): D50.9 - Iron deficiency anemia, unspecified Qualifiers: Iron deficiency anemia type: inadequate dietary iron intake Qualified Code(s): D50.8 - Other iron deficiency anemias Plan: Her H/H have improved significantly with IV iron infusion - states that she has received a total of 5 doses of IV iron through Dr. Amrstrong Continue Multivitamins with iron tablets daily Will have her recheck her CBC and labs in about 4 months for follow up Follow up with Dr. Armstrong as scheduled in January 2024 (2) Vitamin D deficiency: Code(s): E55.9 - Vitamin D deficiency, unspecified Plan: Continue Vitamin D3 2000 units QD (3) Blood in stool: Code(s): K92.1 - Melena Plan: Will refer her to GI for further evaluation and management (4) Obesity (BMI 30-39.9): Code(s): E66.9 - Obesity, unspecified Plan: Reinforced diet/exercise as tolerated/lose weight Plan Follow up in 6 months Orders: Orders Complete Blood Count Auto Diff 01/21/24 D50.8 - Other iron deficiency anemias, D64.9 - Anemia, unspecified IRON PROFILE 01/21/24 D50.9 - Iron deficiency anemia, unspecified Comprehensive Met. Panel 01/21/24 D50.8 - Other iron deficiency anemias Vitamin D 25-OH Total 01/21/24 D50.8 - Other iron deficiency anemias, E55.9 - Vitamin D deficiency, unspecified Referrals Gastroenterology Referral K92.1 - Melena Coding Level of Care Code Est Pt Level 4 (60276) Diagnoses Iron deficiency anemia secondary to inadequate dietary iron intake D50.8 Iron deficiency anemia type: inadequate dietary iron intake Vitamin D deficiency E55.9 Blood in stool K92.1 Obesity (BMI 30-39.9) E66.9
== END 2023-09-07 13:51 | disposition home or self-care (01) ==
PROVIDERS: PCP Internal Medicine; Visit Provider Internal Medicine
DX: D50.8 Other iron deficiency anemias (principal); E55.9 Vitamin D deficiency, unspecified; E66.9 Obesity, unspecified; Z68.32 Body mass index [BMI] 32.0-32.9, adult; K92.1 Melena
CPT/HCPCS: 99214

== ENCOUNTER 2023-11-30 11:32 | Outpatient (AMB) | payer BC, SELFPAY ==
--- NOTE | 2023-11-30 11:48 | MHC.OFFVIS ---
Vital Signs 11/30/23 11:57 Height 5 ft 4 in Weight 188 lb 4.396 oz BMI 32.3 BP 136/74 Blood Pressure Location Rt brachial Position Sitting Pulse 60 Pulse Source Pulse Oximeter Pulse Oximetry (%) 98 Oxygen Delivery Method Room Air Intake Visit Reasons: Melena Intake Note: Rosio presents in office today for a scheduled initial assessment visit. CC; Pt was referred for melena as well as hematochezia. Pt reports that they noticed onset within the last year and a half. Pt reports that sx have been very intermittent. Pt reports that average episodes are typically only a few days to a week. Pt reports that they have also experienced bleeding on a daily basis for months on end. Pt has previous hx of anemia with need for injections as well. Pt reports the amount of bleeding is moderate to heavy amounts. Pt also reports having passed clots with these episodes. Pt states that the blood is typically darker red to brown. Pt does occasionally see spots of bright red but they believe those are related to hx of hemorrhoids. Manager Multicultural Required: No Allergies codeine [CODEINE] Allergy (Intermediate, Verified 11/30/23 11:49) VOMITING oxycodone [OXYCODONE] Allergy (Intermediate, Verified 11/30/23 11:49) VOMITING trazodone [TRAZODONE] Allergy (Intermediate, Verified 11/30/23 11:49) NAUSEA & VOMITING opiates Allergy (Unknown, Uncoded 09/07/23 14:07) vomiting HPI HPI Melena: Details: 43-year-old female with past medical history of anemia is here today for initial consultation. Symptoms of hematochezia and melena in the past year and a half. Patient has been receiving iron infusions so far 5, with last infusion in July. Patient denies any family history of colorectal cancer.. Last H&H normal. No issues with anesthesia in the past. No history of sleep apnea. Not on any anticoagulation medication. Denies any cardiac or respiratory symptoms. No infectious diseases in the past or present. Patient denies any other GI concerning symptoms. [facility] Medical History (Updated 11/30/23 @ 12:31 by Kelli Harmon [facility]-) Melena Vitamin D deficiency Biliary colic Kidney stones Obesity (BMI 30-39.9) Iron deficiency anemia Surgical History H/O section (~10/2016) Hx of tonsillectomy (~1993) Family History Father Bipolar disorder Fibromyalgia Hypertension CVA (cerebral vascular accident) Cardiovascular disease Maternal Grandmother Lung cancer Social History Household Members: Significant Other and Children Housing: House Alcohol intake: never Patient Tobacco Use Status: Former Tobacco user Tobacco use type: Cigarette e-Cigarette/Vaping Use: Never Used service: No Current occupational status: employed Current occupation: [employer] Cognitive needs: No Hearing needs: No Vision needs: Yes Female Reproductive History Menstrual Age of Menarche: 10 Review of Systems Const Denies weight gain and Denies weight loss ENT Reports no additional complaints, Denies dysphagia and Denies odynophagia Card Reports no additional complaints Resp Reports no additional complaints GI Denies abdominal pain, Denies belching, Denies melena, Denies bloating, Reports hematochezia, Denies change in bowel habits, Denies dysphagia, Denies excessive flatus, Denies dyspepsia, Denies heartburn, Denies diarrhea, Denies loose stools, Denies nausea, Denies odynophagia, Denies vomiting and Reports other (melena) Musc Reports no additional complaints Neuro Reports no additional complaints Psych Reports no additional complaints Endo Reports no additional complaints Physical Exam Vital Signs: Last Vital Signs Pulse 60 11/30/23 11:57 BP 136/74 11/30/23 11:57 Pulse Ox 98 11/30/23 11:57 Oxygen Delivery Method Room Air 11/30/23 11:57 BMI result Body Mass Index 32.3 Const General: healthy appearing and no acute distress Nutritional Appearance: obese Orientation/consciousness: patient oriented x3 Resp Effort & Inspection: normal respiratory effort, able to speak in complete sentences, no tracheal deviation and symmetric chest movement Auscultation: clear to auscultation bilaterally Cardio Rate: regular rate GI Inspection: Yes normal to inspection, No distended and Yes obesity Palpation (GI): Soft to palpation, not firm, nontender and No hepatosplenomegaly present Auscultation: normal bowel sounds General: Yes no CVA tenderness Back/Spine/Pelvis Back: no CVA tenderness Skin General skin exam: elasticity normal, turgor normal and dry skin Neuro General: patient oriented x3 Psych Appearance: grossly normal Mental Status: mental status grossly normal Assessment & Plan Assessment & Plan (1) Blood in stool: Code(s): K92.1 - Melena Category: Medical (2) Iron deficiency anemia: Code(s): D50.9 - Iron deficiency anemia, unspecified Category: Medical Qualifiers: Iron deficiency anemia type: inadequate dietary iron intake Qualified Code(s): D50.8 - Other iron deficiency anemias (3) Melena: Code(s): K92.1 - Melena Category: Medical (4) Rectal bleed: Code(s): K62.5 - Hemorrhage of anus and rectum Plan Patient reports melena and hematochezia for the last year and a half. Anemic iron infusion for the past few months lost infusion in July. H&H improved levels normal in July. Will send patient for colonoscopy. Patient denies any cardiac or respiratory symptoms.? Denies any issues with anesthesia in the past.? Denies any history of sleep apnea.? No history infectious diseases in the past or present.? Not on any anticoagulation therapy.? No family or personal history of colon cancer or polyps.? Patient denies melena, hematochezia, unintentional weight loss or ribbon like stools.? Discussed at length the pre-procedure,? prep, diet & medications as well as what to expect prior, during and after the procedure.?? Stressed the importance of good bowel prep.? Recommended the use of Vaseline or Calmoseptine OTC & baby wipes with bowel movements to promote comfort.? ?Patient verbalizes understanding and agrees to plan of care.? She was given the opportunity to ask questions and all questions answered.? We will see her after the procedure.? Coding Level of Care Code New Pt Level 3 (18359) Diagnoses Blood in stool K92.1 Iron deficiency anemia secondary to inadequate dietary iron intake D50.8 Iron deficiency anemia type: inadequate dietary iron intake Melena K92.1 Rectal bleed K62.5 Time Spent (min) 40 Comment 30 minutes spent with patient and additional 10 minutes spent reviewing her records
[2023-11-30 11:57] VITALS: BP 136/74; PULSE 60; O2SAT 98; BMI 32.3
== END 2023-11-30 12:30 | disposition home or self-care (01) ==
PROVIDERS: PCP Internal Medicine; Visit Provider Nurse Practitioner Family
DX: K62.5 Hemorrhage of anus and rectum (principal); D50.8 Other iron deficiency anemias
CPT/HCPCS: 99203

== ENCOUNTER → 2023-11-30 11:32 | Outpatient (BNVA) | payer BC, SELFPAY | PROVIDERS: PCP Internal Medicine; Visit Provider Nurse Practitioner Family ==

== ENCOUNTER 2024-02-03 09:33 | Outpatient (REF) | payer BC, SELFPAY ==
[2024-02-03 09:44] LABS: MANUAL DIFF FLAG NO
[2024-02-03 09:54] LABS: Basophils Percent Auto 0.6 % (0-2); Eosinophils Absolute Auto 0.1 X10*3/uL (0.0-0.4); Eosinophils Percent Auto 1.7 % (0-4); Hematocrit 31.5 % (37.0-47.0); Hemoglobin 8.9 g/dl (12.0-16.0); Imm Gran Abs Auto 0.02 X10*3/uL (0.00-0.03); Imm Gran Pct Auto 0.3 % (0.0-0.4); Lymphocytes Absolute Auto 2.2 X10*3/uL (1.2-4.9); Lymphocytes Percent Auto 30.9 % (20-40); Mean Corpuscular HGB Conc 28.3 g/dl (31.0-35.0); Mean Corpuscular Hemoglobin 21.2 pg (27.0-33.0); Mean Corpuscular Volume 75.2 fL (80.0-98.0); Mean Platelet Volume 10.2 fL (9.4-12.3); Monocytes Absolute Auto 0.6 X10*3/uL (0.1-1.2); Monocytes Percent Auto 8.4 % (2-11); Neutrophils Absolute Auto 4.2 x10*3/uL (2.0-8.3); Neutrophils Percent Auto 58.1 % (45-73); Platelet Count 189 X10*3/uL (160-400); Red Blood Count 4.19 X10*6/uL (4.20-5.50); White Blood Count 7.1 X10*3/uL (4.8-10.8)
[2024-02-03 11:16] LABS: Alanine Aminotransferase 15 U/L (0-31); Albumin Level 4.2 g/dL (3.5-5.0); Alkaline Phosphatase 71 U/L (39-117); Anion Gap 10 (12-20); Aspartate Amino Transferase 19 U/L (5-31); Bilirubin Total 0.4 mg/dL (0.0-1.0); Blood Urea Nitrogen 11 mg/dL (9-16); Calcium 9.4 mg/dL (8.4-10.2); Carbon Dioxide 24 mmol/L (22-29); Chloride 111 mmol/L (96-108); Estimated Glomerular Filt Rate > 60; Glucose Random 91 mg/dL (60-115); Iron 12 mcg/dL (30-160); Percent Iron Saturation 3 % (15-50); Potassium 4.2 mmol/L (3.3-5.1); Sodium 141 mmol/L (135-145); Total Iron Binding Capacity 349 mcg/dL (228-428); Total Protein 7.4 g/dL (6.5-8.0); Unsaturated Iron Binding 337 ug/dL
[2024-02-03 11:17] LABS: Vitamin D 25-OH Total 26.6 ng/mL (>30)
== END 2024-02-03 09:34 | disposition home or self-care (01) ==
LOC: HO.LAB 09:33
PROVIDERS: PCP Internal Medicine; Visit Provider Internal Medicine
DX: E55.9 Vitamin D deficiency, unspecified (principal); D50.8 Other iron deficiency anemias; D64.9 Anemia, unspecified; D50.9 Iron deficiency anemia, unspecified
CPT/HCPCS: 36415; 80053; 82306; 83540; 85025

== ENCOUNTER 2024-02-08 07:24 | Day surgery (SDC) | payer BC, SELFPAY ==
[2024-02-06 15:14] VITALS: BMI 32.3
--- NOTE | 2024-02-07 09:34 | HO.ANESPROP2 ---
Documented by User: Nery Blancas NP 02/07/24 09:35 HPI - Anesthesia Eval Consult details Narrative: 43yo F for Colonoscopy PMFSH Active Problems Active Problems: All Active Problems Melena (Acute) Vitamin D deficiency (Acute) Blood in stool (Acute) Insomnia (Acute) control counseling (Acute) Hyperpigmented skin lesion (Acute) Cervical cancer screening (Acute) Breast cancer screening by mammogram (Acute) Obesity (BMI 30-39.9) (Acute) Fatigue (Acute) Iron deficiency anemia (Chronic) Annual physical exam (Acute) Past Medical History Medical History Melena Vitamin D deficiency Biliary colic Kidney stones Obesity (BMI 30-39.9) Iron deficiency anemia Family History Family History Father Bipolar disorder Fibromyalgia Hypertension CVA (cerebral vascular accident) Cardiovascular disease Maternal Grandmother Lung cancer Surgical History Surgical History H/O section (~10/2016) Hx of tonsillectomy (~1993) Social History Social History Household Members: Significant Other and Children Housing: House Alcohol intake: never Patient Tobacco Use Status: Former Tobacco user Tobacco use type: Cigarette e-Cigarette/Vaping Use: Never Used Use of substances other than those prescribed or required for medical reasons: No Are you DNR?: No Advance Directives: No Advance Directives Information Provided: Yes Advance Directives on File: No Recently lost weight without trying: Yes How much weight loss: 2-13 pounds Nutrition Risks: No Nutritional Risk service: No Current occupational status: employed 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 Cognitive needs: No Hearing needs: No Vision needs: Yes Meds Allergies Allergy/AdvReac Type Severity Reaction Status Date / Time codeine [CODEINE] Allergy Intermediate VOMITING Verified 11/30/23 11:49 oxycodone [OXYCODONE] Allergy Intermediate VOMITING Verified 11/30/23 11:49 trazodone [TRAZODONE] Allergy Intermediate NAUSEA & Verified 11/30/23 11:49 VOMITING opiates Allergy Intermediate vomiting Uncoded 02/06/24 15:12 Home Medications ?Medication ?Instructions ?Recorded ?Confirmed ?Last Taken ?Type ibuprofen 600 mg tablet 600 mg PO Q6H PRN pain 04/08/23 02/03/24 Unknown History Exam Height,Weight and Vital Signs: Height 5 ft 4 in Weight 85.275 kg Assessment and Plan Assessment Anesthesia Assessment: Chart Reviewed Documented by User: Binta Hsu MD 02/08/24 08:46 PMFSH Past Medical History Medical History Melena Vitamin D deficiency Biliary colic Kidney stones Obesity (BMI 30-39.9) Iron deficiency anemia Family History Family History Father Bipolar disorder Fibromyalgia Hypertension CVA (cerebral vascular accident) Cardiovascular disease Maternal Grandmother Lung cancer Family history of problems with anesthesia: No Surgical History Surgical History H/O section (~10/2016) Hx of tonsillectomy (~1993) History of Problems with Anesthesia: No Social History Social History Household Members: Significant Other and Children Housing: House Alcohol intake: never Patient Tobacco Use Status: Former Tobacco user Tobacco use type: Cigarette e-Cigarette/Vaping Use: Never Used Use of substances other than those prescribed or required for medical reasons: No Are you DNR?: No Advance Directives: No Advance Directives Information Provided: Yes Advance Directives on File: No Recently lost weight without trying: Yes How much weight loss: 2-13 pounds Nutrition Risks: No Nutritional Risk service: No Current occupational status: employed 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 Cognitive needs: No Hearing needs: No Vision needs: Yes Meds Allergies Allergy/AdvReac Type Severity Reaction Status Date / Time codeine [CODEINE] Allergy Intermediate VOMITING Verified 11/30/23 11:49 oxycodone [OXYCODONE] Allergy Intermediate VOMITING Verified 11/30/23 11:49 trazodone [TRAZODONE] Allergy Intermediate NAUSEA & Verified 11/30/23 11:49 VOMITING opiates Allergy Intermediate vomiting Uncoded 02/06/24 15:12 Home Medications ?Medication ?Instructions ?Recorded ?Confirmed ?Last Taken ?Type ibuprofen 600 mg tablet 600 mg PO Q6H PRN pain 04/08/23 02/03/24 Unknown History Exam Airway Mallampati Class: II TM Dist: >3cm Neck ROM: Full Heart: rrr Lungs: cta Assessment and Plan Assessment Anesthesia Assessment: Anesthesia Plan Discussed Final Anesthetic Review Family History of Problems with Anesthesia: No History of Problems with Anesthesia: No NPO: Yes ASA Class: II Final Preanesthetic Review: No Changes in Pt Med Stat, Meds/Allgs Chart Reviewed, Consent Obtained/Reviewed and Anes Risks/Benef Reviewed Patient Risk: Low Procedure Risk: Low Anesthetic Plan Anesthetic Plan: MAC: Disposition: Standard PACU
--- NOTE | 2024-02-08 06:42 | P.HPSUR_ITS ---
Pre-Procedural Eval Section A - 24 Hr Update-Section A only Date of Service: 02/08/24 Section B - Complete if H&P > 30 days Chief Complaint: rectal bleeding,anemia, Relevant Family History (Specify if Yes): No Relevant Social History: None Present Medications: see Short Stay Collaborative assessment Medical History: Significant History (Melena Vitamin D deficiency Biliary colic Kidney stones Obesity (BMI 30-39.9) Iron deficiency anemia) History of Previous Operations: Relevant previous surgery/procedure and date(s) ( H/O section (~10/2016) Hx of tonsillectomy (~1993)) Allergies: Allergies Allergy/AdvReac Type Severity Reaction Status Date / Time codeine [CODEINE] Allergy Intermediate VOMITING Verified 11/30/23 11:49 oxycodone [OXYCODONE] Allergy Intermediate VOMITING Verified 11/30/23 11:49 trazodone [TRAZODONE] Allergy Intermediate NAUSEA & Verified 11/30/23 11:49 VOMITING opiates Allergy Intermediate vomiting Uncoded 02/06/24 15:12 Review of Systems Sugical H&P ROS: Negative: Constitution, Cardiovascular, Respiratory, Neur ological, Psychiatric, Hem-Onc, Allergic/Immunologic, Gastrointestinal, Genitourinary, Musculoskeletal, Integumentary, Endocrine and Eyes/Ears/Nose/Throat Exam Surgical H&P Exam: Normal: HEENT, Normal: Heart, Normal: Lungs, Normal: Extremities, Normal: Abdomen, Normal: Skin and Normal: Neurological Plan Diagnosis/Plan: Unchanged I have reviewed the history and physical and performed a pertinent physical examination on my patient. No changes have occurred unless specified. Time Spent With Patient Time: Total time managing care of this patient today ____ minutes.
[2024-02-08 07:44] VITALS: BMI 30.6
[2024-02-08 07:51] VITALS: BP 118/68; PULSE 73; RESP 16; TEMP 37; O2SAT 100
[2024-02-08] MEDS: Lactated Ringers 1,000 ML 100 ML IVCONT (08:05)
[2024-02-08 08:08] LABS: UPreg QC Valid YES; Urine Pregnancy NEGATIVE (NEGATIVE)
--- NOTE | 2024-02-08 09:03 | P.OPN-COLO_ITS ---
Colonoscopy Operative Note Operative Note Date of Service: 02/08/24 Narrative: Operative Information Procedure Description: Colonoscopy Indication: rectal bleeding Anesthesia: MAC COLONOSCOPY Instrument: Olympus variable stiffness pediatric scope 190L Colonoscopy Monitoring: Vital signs and clinical assessment, continuous EKG monitoring, Pulse oximetry, Carbon Dioxide monitoring and blood pressure monitoring were done throughout the procedure. Colon withdrawal time was 6 minutes. Procedure: The patient was placed in the left lateral decubitis position and pre-procedure medications were administered. After a digital rectal examination of the ano-rectum, the video colonoscope was inserted into the rectum and advanced through the colon to the cecum/TI. The colonoscope was slowly withdrawn in a retrograde panoramic fashion and the colon mucosa was carefully examined including a retroflexed view of the rectum. Findings and interventions are described below. Procedure Difficulty: easy Findings: Terminal Ileum-normal Cecum:normal Right sided retroflexion- normal Ascending Colon: normal Transverse Colon -normal Descending Colon:normal Sigmoid Colon: normal Rectum: Retroflexion with inflammed internal hemorrhoids seen, grade II Anorectum - internal hemorrhoids seen on forward view Intervention: none Colon preparation: [place] Bowel Preparation Scale Right colon; 3 Transverse colon: 3 Left colon; 3 (0 = Unprepared colon segment with mucosa not seen due to solid stool that cannot be cleared. 1 = Portion of mucosa of the colon segment seen, but other areas of the colon segment not well seen due to staining, residual stool and/or opaque liquid. 2 = Minor amount of residual staining, small fragments of stool and/or opaque liquid, but mucosa of colon segment seen well. 3 = Entire mucosa of colon segment seen well with no residual staining, small fragments of stool or opaque liquid) Impression and Post Procedure Diagnosis: internal hemorrhoids Plan: High fiber diet leaflet Avoid straining at stool, epsom salts and sitz bath, anusol supps or cream Repeat Colonoscopy in 10 years or earlier if clinically indicated Above findings were reviewed with the patient and relevant handouts were provided if indicated.
[2024-02-08 09:08] VITALS: BP 96/47; PULSE 66; RESP 16; TEMP 36.4; O2SAT 99
[2024-02-08 09:29] VITALS: BP 114/78; PULSE 65; RESP 17; TEMP 36.4; O2SAT 100
== END 2024-02-08 10:06 | disposition home or self-care (01) ==
PROVIDERS: Nurse Practitioner; PCP Internal Medicine; Visit Provider Internal Medicine Gastroenterology
PROC: 0DJD8ZZ Inspection of Lower Intestinal Tract, Via Natural or Artificial Opening Endoscopic (ICD-10-PCS; CPT 45378; principal; 2024-02-08 08:30)
DX: K62.5 Hemorrhage of anus and rectum (principal); D50.8 Other iron deficiency anemias; K64.1 Second degree hemorrhoids; K80.50 Calculus of bile duct without cholangitis or cholecystitis without obstruction; E55.9 Vitamin D deficiency, unspecified; N20.0 Calculus of kidney; E66.9 Obesity, unspecified; Z68.32 Body mass index [BMI] 32.0-32.9, adult; Z88.5 Allergy status to narcotic agent; Z87.891 Personal history of nicotine dependence
CPT/HCPCS: 45378; 81025; J2704

== ENCOUNTER → 2024-02-08 07:24 | Outpatient (BNV) | payer BC, SELFPAY | PROVIDERS: PCP Internal Medicine; Visit Provider Internal Medicine Gastroenterology | DX: K62.5 Hemorrhage of anus and rectum (principal); K64.1 Second degree hemorrhoids | CPT/HCPCS: 45378 ==

== ENCOUNTER 2024-03-08 09:36 | Outpatient (AMB) | payer BC, SELFPAY ==
--- NOTE | 2024-03-08 09:38 | MHC.PC.OV ---
Vital Signs 03/08/24 09:39 Height 5 ft 4 in Weight 182 lb BMI 31.2 BP 120/76 Blood Pressure Location Lt brachial Position Sitting Pulse 64 Pulse Source Pulse Oximeter Pulse Oximetry (%) 100 Oxygen Delivery Method Room Air Intake Visit Reasons: 6 MONTH F/U Intake Note: Patient is here to follow up on Anemia, Obesity. Pt decline flu shot today. Process Control Tech Required: No Procurement Manager: Not Required per policy Accompanied by: Self / Same As Patient Allergies codeine [CODEINE] Allergy (Intermediate, Verified 03/08/24 10:18) VOMITING oxycodone [OXYCODONE] Allergy (Intermediate, Verified 03/08/24 10:18) VOMITING trazodone [TRAZODONE] Allergy (Intermediate, Verified 03/08/24 10:18) NAUSEA & VOMITING opiates Allergy (Intermediate, Uncoded 03/08/24 10:18) vomiting Medication List - Last Reconciled 03/08/24 by Alireza Domínguez MD ibuprofen 600 mg PO Q6H PRN Tobacco use date assessed: 03/08/24 Dental Screening Dental Screen Date: 09/07/23 HPI 6 MONTH F/U HPI Details Patient comes in today for her follow up visit States that she feels okay except for recurrent right foot/heel pain, which has been bothering her for a few months now Notes that the pain feels worse in the morning and actually gets better as the day goes on and she is on her feet walking and moving around Thinks that she has plantar fasciitis and would like to know what she can do to get this cleared up completely She also had a colonoscopy done last month on 02/08/2024 to evaluate her recent GI bleeding (blood in stool) - her colonoscopy was normal except for internal hemorrhoids; was recommended to get repeat colonoscopy in 10 years She denies any headaches or dizziness Denies any chest pains, no SOB No nausea/vomiting, no abdominal pain No change in bowel habits noted She had her follow up labs done last month - to discuss her results [facility] Medical History Melena Vitamin D deficiency Biliary colic Kidney stones Obesity (BMI 30-39.9) Iron deficiency anemia Surgical History (Updated 03/08/24 @ 20:24 by Alireza Domínguez MD) History of colonoscopy H/O section (~10/2016) Hx of tonsillectomy (~1993) Family History Father Bipolar disorder Fibromyalgia Hypertension CVA (cerebral vascular accident) Cardiovascular disease Maternal Grandmother Lung cancer Other Mental health disorder Substance use disorder Social History Household Members: Significant Other and Children Housing: House Alcohol intake: never Patient Tobacco Use Status: Former Tobacco user Tobacco use type: Cigarette e-Cigarette/Vaping Use: Never Used Second Hand Smoke Exposure: Yes service: No Current occupational status: employed (works at [employer] in [employer]) Current occupation: [employer] Cognitive needs: No Hearing needs: No Vision needs: Yes Female Reproductive History Menstrual Age of Menarche: 10 Questionnaire Thrive Questionnaire Date Thrive assessed: 09/07/23 Are you currently unemployed and looking for a job?: No AUDIT C Alcohol Use Questionnaire (AUDIT-C) 3. How often do you have six or more drinks on one occasion?: Never Total Score: 0 BALAJI-7 AMB Questionnaire BALAJI-7 Date BALAJI - 7 assessed: 09/07/23 Source: Developed by Drs. Daljit Ovalle, Merissa Monzon, Nishant Anderson and colleagues, with an educational destini from [employer]. Review of Systems Const Denies chills, Denies fatigue, Denies fever(s) and Denies headache(s) ENT Denies dysphagia, Denies dizziness, Denies otalgia, Denies headache(s), Denies neck pain, Denies odynophagia and Denies sore throat Card Denies chest pain, Denies palpitations and Denies dyspnea Resp Denies cough and Denies dyspnea GI Denies abdominal pain, Denies constipation, Denies dysphagia, Denies heartburn, Denies diarrhea, Denies nausea, Denies odynophagia and Denies vomiting Denies difficulty voiding, Denies nocturia, Denies dysuria and Denies urinary urgency Musc Details: (+) pain over the right heel area on the bottom of the feet, often worse in the morning (sse HPI) Denies back pain and Denies neck pain Skin/Breast Denies rash Neuro Denies dizziness and Denies headache(s) Endo Denies fatigue and Denies palpitations Physical exam (Primary Care) Vital Signs: Last Vital Signs Pulse 64 03/08/24 09:39 BP 120/76 03/08/24 09:39 Pulse Ox 100 03/08/24 09:39 Oxygen Delivery Method Room Air 03/08/24 09:39 BMI result Body Mass Index 31.2 Tobacco/Smoking Status: Tobacco use Status Tobacco use date assessed 03/08/24 03/08/24 09:45 Patient Tobacco Use Status Former Tobacco user 03/08/24 09:45 Tobacco use type Cigarette 03/08/24 09:45 e-Cigarette/Vaping Use Never Used 03/08/24 09:45 Thrive Assessment: Date of Thrive Assessment Date Thrive assessed 09/07/23 03/08/24 09:45 Const General: no acute distress and alert HENMT Ears: TM's normal bilaterally and EAC's normal Throat: Yes posterior oropharynx normal and Yes tonsils normal (no TP congestion) Neck Neck: Yes no lymphadenopathy and Yes supple Thyroid: Thyroid normal Resp Auscultation: clear to auscultation bilaterally, no rales and no wheezes Cardio Rate: regular rate Rhythm: regular rhythm Heart sounds: no murmurs GI Palpation (GI): Soft to palpation, nontender and No hepatosplenomegaly present General: Yes no CVA tenderness Back/Spine/Pelvis Back: no CVA tenderness Thoracic/Lumbar Spine: No lumbar spinal tenderness Skin Rashes: no rashes Extrem General: Yes no clubbing, cyanosis or edema Right lower extremity: foot Details: tenderness Location: of the calcaneus Details: point tenderness Results Reviewed Results Reviewed: Laboratory Tests 02/03/24 09:43 WBC 7.1 Hgb 8.9 L D Hct 31.5 L D Plt Count 189 Sodium 141 Potassium 4.2 Creatinine 0.77 Estimated GFR > 60 Random Glucose 91 Calcium 9.4 Iron 12 L TIBC 349 % Saturation 3 L AST 19 ALT 15 25-OH Vitamin D Total 26.6 L Coding Level of Care Code Est Pt Level 4 (66444) Diagnoses Right foot pain M79.671 Iron deficiency anemia secondary to inadequate dietary iron intake D50.8 Iron deficiency anemia type: inadequate dietary iron intake Blood in stool K92.1 Vitamin D deficiency E55.9 Obesity (BMI 30-39.9) E66.9 Assessment & Plan Assessment & Plan (1) Right foot pain: Code(s): M79.671 - Pain in right foot Category: Medical Plan: Discussed with patient that her right heel pain is likely, as she thought, due to plantar fasciitis or Achilles tendinitis Will refer her to podiatry for further evaluation and management (2) Iron deficiency anemia: Code(s): D50.9 - Iron deficiency anemia, unspecified Category: Medical Qualifiers: Iron deficiency anemia type: inadequate dietary iron intake Qualified Code(s): D50.8 - Other iron deficiency anemias Plan: Patient's H/H have improved previously with IV iron infusion - she received a total of 5 doses of IV iron (Venofer); she could not tolerate oral iron supplements Her H/H improved to 12.8/40.1 back in July 2023 after her iron infusions but her labs done last month showed that she is again anemic and her H/H have dropped down 8.9/31.5 Will continue to monitor her CBC regularly Continue Multivitamins with iron tablets daily for now Follow up with hematology (Dr. Armstrong) as scheduled (3) Blood in stool: Code(s): K92.1 - Melena Category: Medical Plan: She had a colonoscopy done last month that was normal except for internal hemorrhoids and she is recommended for a repeat colonoscopy in 10 years (4) Vitamin D deficiency: Code(s): E55.9 - Vitamin D deficiency, unspecified Category: Medical Plan: Continue Vitamin D3 2000 units QD (5) Obesity (BMI 30-39.9): Code(s): E66.9 - Obesity, unspecified Category: Medical Plan: Reinforced diet/exercise as tolerated/lose weight Plan To return in 6 months for her annual physical examination Orders: Orders UA CC w/rflx Micro + Cult 6 Months R30.0 - Dysuria, Z00.00 - Encounter for general adult medical examination without abnormal findings Vitamin D 25-OH Total 6 Months E55.9 - Vitamin D deficiency, unspecified, Z00.00 - Encounter for general adult medical examination without abnormal findings Complete Blood Count Auto Diff 6 Months D64.9 - Anemia, unspecified, Z00.00 - Encounter for general adult medical examination without abnormal findings Comprehensive [place]. Panel Fast 6 Months E78.00 - Pure hypercholesterolemia, unspecified, Z00.00 - Encounter for general adult medical examination without abnormal findings Lipid Panel 6 Months E78.00 - Pure hypercholesterolemia, unspecified, Z00.00 - Encounter for general adult medical examination without abnormal findings TSH reflex Free T4 6 Months E78.00 - Pure hypercholesterolemia, unspecified, Z00.00 - Encounter for general adult medical examination without abnormal findings Referrals Podiatry Referral M79.951 - Pain in right foot Medications: Changed From cholecalciferol (vitamin D3) 50 mcg PO DAILY 90 days 90 caps 3RF E55.9 - Vitamin D deficiency, unspecified To cholecalciferol (vitamin D3) Patient gets this OTC as insurance will not cover OTC meds - do not remove from med list 50 mcg PO DAILY 90 days 90 caps 3RF E55.9 - Vitamin D deficiency, unspecified
[2024-03-08 09:39] VITALS: BP 120/76; PULSE 64; O2SAT 100; BMI 31.2
== END 2024-03-08 10:33 | disposition home or self-care (01) ==
PROVIDERS: PCP Internal Medicine; Visit Provider Internal Medicine
DX: M79.671 Pain in right foot (principal); E66.811 Obesity, class 1; D50.8 Other iron deficiency anemias; K92.1 Melena; Z68.31 Body mass index [BMI] 31.0-31.9, adult; E55.9 Vitamin D deficiency, unspecified

== ENCOUNTER → 2024-03-08 09:36 | Outpatient (BNVA) | payer BC, SELFPAY | PROVIDERS: PCP Internal Medicine; Visit Provider Internal Medicine ==

== ENCOUNTER 2024-03-30 17:30 | Emergency (ER) | payer BC, SELFPAY ==
--- NOTE | ~2024-03-30 | XR_ITS ---
EXAMINATION: XR CHEST CLINICAL INFORMATION: Shortness of breath COMPARISON: None available. TECHNIQUE: 2 views of the chest were obtained. FINDINGS: No significant abnormality is noted involving the heart, lungs, mediastinum, bony thorax or soft tissues. XR/XR chest 2V IMPRESSION: Unremarkable examination. Electronically signed by: Maria Elena Anderson MD 03/30/2024 06:58 PM EDT RP
[2024-03-30 17:32] VITALS: BP 121/43; PULSE 88; RESP 20; TEMP 37; O2SAT 100
--- NOTE | 2024-03-30 17:33 | ECG_ITS ---
Test Reason : tachycardia Blood Pressure : / mmHG Vent. Rate : 079 BPM Atrial Rate : 079 BPM P-R Int : 150 ms QRS Dur : 074 ms QT Int : 374 ms P-R-T Axes : 001 016 011 degrees QTc Int : 428 ms Normal sinus rhythm Normal ECG When compared with ECG of 09-JUL-2022 11:21, No significant change was found Referred By: June Crews Electronically Signed By:GERRI BILLS
--- NOTE | 2024-03-30 17:34 | ED_ITS ---
HPI - General Adult General Chief complaint: General Medical Stated complaint: rapid heart rate, jaw pain, sob Time Seen by Provider: 03/30/24 20:13 Source: patient and old records reviewed Mode of arrival: ambulatory Limitations: no limitations History of Present Illness ED Provider: AIDE PINTO narrative: 43 yo female with PMH of insomnia, Fe deficiency anemia currently unable to tolerate Ferrous sulfate other than Fe sara, did have transfusions back in June with Dr. Armstrong who comes in with fatigue and GARNETT. When she exerts herself she feels very tired and her heart racing. He has internal hemorrhoids and has hx of intermittent blood on the stool - she notes she has had normal colonoscopy in the past as well. She notes her PCP thinks it is from poor diet but she disagrees about her anemia. She has never had to get blood transfusion. complaint: GARNETT Onset (ago): day(s) (several) Location: chest Radiation: non-radiation Severity: moderate Relieving factors: rest Exacerbating factors: movement Associated symptoms: shortness of breath and weakness Treatments prior to arrival: none Related Data Home Medications ?Medication ?Instructions ?Recorded ?Confirmed ibuprofen 600 mg tablet 600 mg PO Q6H PRN pain 04/08/23 03/08/24 Previous Rx's ?Medication ?Instructions ?Recorded cholecalciferol (vitamin D3) 50 50 mcg PO DAILY 90 days #90 caps 03/08/24 mcg (2,000 unit) capsule Allergies Allergy/AdvReac Type Severity Reaction Status Date / Time codeine [CODEINE] Allergy Intermediate VOMITING Verified 03/30/24 17:33 oxycodone [OXYCODONE] Allergy Intermediate VOMITING Verified 03/30/24 17:33 trazodone [TRAZODONE] Allergy Intermediate NAUSEA & Verified 03/30/24 17:33 VOMITING opiates Allergy Intermediate vomiting Uncoded 03/30/24 17:33 Review of Systems 2 Review of Systems: Constitutional : No Weight loss, No Fever, No Chills, pos fatigue ENT/Mouth : No sore throat, No Rhinorrhea Eyes: No Eye Pain, No Swelling Cardiovascular :no Chest Pain, pos SOB, pos Dyspnea on Exertion, No Orthopnea, No Edema, No Palpitations Respiratory : No Cough, No Sputum Gastrointestinal : pos Nausea, No Vomiting, No Diarrhea, No abdominal Pain, No Hematochezia, No Melena Genitourinary : No Dysuria, No Urinary Frequency Musculoskeletal : No joint pain, No Myalgias, No Joint Swelling Skin : No Skin Lesions, No rash Neuro : No Weakness, No Numbness, No Dizziness, No Headache Psych : No Anxiety/Panic, No Depression, pos insomnia All other systems reviewed and are negative [facility] Past Medical History Attestation statement: The following information was validated with the patient. Source: old records reviewed Medical History Melena Vitamin D deficiency Biliary colic Kidney stones Obesity (BMI 30-39.9) Iron deficiency anemia Surgical History History of colonoscopy H/O section (~10/2016) Hx of tonsillectomy (~1993) Family History Family History Father Bipolar disorder Fibromyalgia Hypertension CVA (cerebral vascular accident) Cardiovascular disease Maternal Grandmother Lung cancer Other Mental health disorder Substance use disorder Social History Social History Household Members: Significant Other and Children Housing: House Alcohol intake: never Patient Tobacco Use Status: Former Tobacco user Tobacco use type: Cigarette Smoked in Last 30 Days: No e-Cigarette/Vaping Use: Never Used Second Hand Smoke Exposure: Yes Use of substances other than those prescribed or required for medical reasons: No Advance Directives: No Advance Directives Information Provided: No Do you have a plan to hurt others: No Plan Patient : No service: No Current occupational status: employed (works at [employer] in [place]) Current occupation: [employer] Cognitive needs: No Hearing needs: No Vision needs: Yes Physical Exam ED Vital Signs: Vital Signs - 24 hr 03/30/24 17:32 03/30/24 20:13 03/30/24 22:05 Temperature 98.6 F 98.3 F 98.9 F Pulse Rate 88 71 76 Respiratory Rate 20 16 15 Blood Pressure 121/43 L 122/54 L 106/44 L Pulse Oximetry 100 99 100 Oxygen Delivery Method Room Air Room Air Room Air BMI result Body Mass Index 30.0 Appearance: Alert. Oriented X3. No acute distress. Eyes: Pupils equal, round and reactive to light. ENT: Pharynx normal. Neck: Normal inspection. Neck supple. CVS: Normal heart rate and rhythm. Pulses normal. Respiratory: No respiratory distress. Breath sounds normal. Abdomen: Soft and nontender. Skin: Skin warm and dry. pale skin color. Normal skin turgor. Extremities: No lower extremity edema. No calf ttp Neuro: Oriented X 3. No motor deficit. No sensory deficit. Course Course Course Narrative: This is a Rapid Medical Examination (RME) performed by Gabriela Crews PA-C in triage. Full HPI, ROS, assessment and treatment plan per primary provider in the Main ED. 43 yo female hx of iron deficiency anemia here for eval of intermittent palpitations, chest pain, jaw pain, sob, dizziness. recently placed back on iron supplementation. recent colonoscopy, diagnosis of internal hemorrhoids, no other GI bleed. Plan: labs, ekg, cxr, viral swabs, iron panel Medical Decision Making Medical Decision Making MDM Narrative: 43 yo female with PMH of insomnia, Fe deficiency anemia now with GARNETT, palpitations, fatigue - at this time suspect symptomatic anemia she is only taking OTC iron gummies. She has nonischemic EKG, she has no risk factors for PE she is PERC negative, hemoglobin 7.4 with symptoms will transfuse one unit and instruct her to follow up with sales promotion director. Doubt ACS/VTE Differential Diagnosis Differential Diagnoses: The differential diagnosis associated with the presentation includes symptomatic anemia Admission/Observation Consideration of admission/observation: Escalation of care including admission/observation considered feels better stable for DC Lab Data [facility] Lab Attestation statement: I reviewed the patient's lab results. 03/30/24 17:46 03/30/24 17:46 Labs: Lab Results 03/30/24 03/30/24 Range/Units 17:46 21:16 WBC 8.8 (4.8-10.8) X10*3/uL RBC 3.69 L (4.20-5.50) X10*6/uL Hgb 7.4 L (12.0-16.0) g/dl Hct 25.5 L (37.0-47.0) % MCV 69.1 L (80.0-98.0) fL MCH 20.1 L (27.0-33.0) pg MCHC 29.0 L (31.0-35.0) g/dl RDW 16.8 H (11.0-16.0) % Plt Count 196 (160-400) X10*3/uL MPV 10.7 (9.4-12.3) fL Immature Gran % (Auto) 0.3 (0.0-0.4) % Neut % (Auto) 67.3 (45-73) % Lymph % (Auto) 23.5 (20-40) % [place] % (Auto) 7.1 (2-11) % Eos % (Auto) 1.3 (0-4) % Baso % (Auto) 0.5 (0-2) % Lymph # (Auto) 2.1 (1.2-4.9) X10*3/uL [place] # (Auto) 0.6 (0.1-1.2) X10*3/uL Eos # (Auto) 0.1 (0.0-0.4) X10*3/uL Baso # (Auto) 0.0 (0.0-0.2) X10*3/uL Abs Immat Gran (auto) 0.03 (0.00-0.03) X10*3/uL Absolute Neuts (auto) 5.9 (2.0-8.3) x10*3/uL Absolute Nucleated RBC 0.000 (0.0-0.012) X10*3/uL Nucleated RBC % (auto) 0.0 (0.0-0.2) /100WBC PT 12.2 (10.9-12.4) SEC INR 1.0 (0.9-1.1) Sodium 140 (135-145) mmol/L Potassium 4.2 (3.3-5.1) mmol/L Chloride 109 H (96-108) mmol/L Carbon Dioxide 20 L (22-29) mmol/L Anion Gap 15 (12-20) BUN 12 (9-16) mg/dL Creatinine 0.74 (0.5-1.4) mg/dL Estim Creat Clear Calc 98.9 Estimated GFR > 60 Random Glucose 95 (60-115) mg/dL Calcium 9.0 (8.4-10.2) mg/dL Magnesium 2.0 (1.6-2.6) mg/dL Iron 15 L (30-160) mcg/dL TIBC 367 (228-428) mcg/dL % Saturation 4 L (15-50) % Unsat Iron Binding 352 ug/dL Total Bilirubin 0.4 (0.0-1.0) mg/dL AST 28 (5-31) U/L ALT 17 (0-31) U/L Alkaline Phosphatase 91 (39-117) U/L Troponin I High Sens < 2.7 (<3.5-17.0) ng/L Total Protein 7.4 (6.5-8.0) g/dL Albumin 4.2 (3.5-5.0) g/dL Influenza Type A (PCR) NEGATIVE (Negative) Influenza Type B (PCR) NEGATIVE (Negative) RSV RNA Qual (PCR) NEGATIVE (Negative) SARS-CoV-2 RNA (RT-PCR) NEGATIVE (Negative) Crossmatch See Detail Independent Interpretation I performed an independent interpretation of an: EKG and Plain X-Ray (normal ) Interpretation: Rate:79 Rhythm: NSR [place]: normal Normal P waves. Normal JERO. Normal QRS complex. ST T wave : no ARLINE, inverted t waves III, V1 qTC: 428 prior studies: no change from prior The study has been interpreted contemporaneously by me. . Radiology Impression Discussion of test interpretation with radiology: I have reviewed the radiologist's reading. External Record Review External record reviewed: Outpatient record and Prior outpatient labs Discharge Plan Discharge Clinical Impression: Iron deficiency anemia, Symptomatic anemia Patient Disposition: Home, Self-Care Instructions: Anemia (ED), Blood Transfusion (DC) Additional Instructions: please follow up with any worsening symptoms or concerns follow up with your sales promotion director next week rest and stay hydrated Prescriptions: No Action ibuprofen 600 mg tablet 600 mg PO Q6H PRN (Reason: pain) Rx Instructions: Take with food cholecalciferol (vitamin D3) 50 mcg (2,000 unit) capsule 50 mcg PO DAILY 90 Days Qty: 90 3RF Rx Instructions: Patient gets this OTC as insurance will not cover OTC meds - do not remove from med list Stand Alone Forms: Work/School Release Print Language: Gambian
[2024-03-30 17:51] LABS: MANUAL DIFF FLAG NO
[2024-03-30 17:56] LABS: Basophils Percent Auto 0.5 % (0-2); Eosinophils Absolute Auto 0.1 X10*3/uL (0.0-0.4); Eosinophils Percent Auto 1.3 % (0-4); Hematocrit 25.5 % (37.0-47.0); Hemoglobin 7.4 g/dl (12.0-16.0); Imm Gran Abs Auto 0.03 X10*3/uL (0.00-0.03); Imm Gran Pct Auto 0.3 % (0.0-0.4); Lymphocytes Absolute Auto 2.1 X10*3/uL (1.2-4.9); Lymphocytes Percent Auto 23.5 % (20-40); Mean Corpuscular Hemoglobin 20.1 pg (27.0-33.0); Mean Corpuscular Volume 69.1 fL (80.0-98.0); Mean Platelet Volume 10.7 fL (9.4-12.3); Monocytes Absolute Auto 0.6 X10*3/uL (0.1-1.2); Monocytes Percent Auto 7.1 % (2-11); Neutrophils Absolute Auto 5.9 x10*3/uL (2.0-8.3); Neutrophils Percent Auto 67.3 % (45-73); Platelet Count 196 X10*3/uL (160-400); Red Blood Count 3.69 X10*6/uL (4.20-5.50); Red Cell Distribution Width 16.8 % (11.0-16.0); White Blood Count 8.8 X10*3/uL (4.8-10.8)
[2024-03-30 18:05] LABS: Prothrombin Time 12.2 SEC (10.9-12.4)
[2024-03-30 18:18] LABS: Alanine Aminotransferase 17 U/L (0-31); Albumin Level 4.2 g/dL (3.5-5.0); Alkaline Phosphatase 91 U/L (39-117); Anion Gap 15 (12-20); Aspartate Amino Transferase 28 U/L (5-31); Bilirubin Total 0.4 mg/dL (0.0-1.0); Blood Urea Nitrogen 12 mg/dL (9-16); Carbon Dioxide 20 mmol/L (22-29); Chloride 109 mmol/L (96-108); Creatinine Clr Calc Pharmacy 98.9; Estimated Glomerular Filt Rate > 60; Glucose Random 95 mg/dL (60-115); Iron 15 mcg/dL (30-160); Percent Iron Saturation 4 % (15-50); Potassium 4.2 mmol/L (3.3-5.1); Sodium 140 mmol/L (135-145); Total Iron Binding Capacity 367 mcg/dL (228-428); Total Protein 7.4 g/dL (6.5-8.0); Unsaturated Iron Binding 352 ug/dL
[2024-03-30 18:29] LABS: Troponin-I High Sensitivity < 2.7 ng/L (<3.5-17.0)
[2024-03-30 18:49] LABS: Influenza A PCR NEGATIVE (Negative); Influenza B PCR NEGATIVE (Negative); Resp Syncy Virus RNA Qual PCR NEGATIVE (Negative); SARS COV2 PCR INHOUSE NEGATIVE (Negative)
[2024-03-30 20:13] VITALS: BP 122/54; PULSE 71; RESP 16; TEMP 36.8; O2SAT 99
[2024-03-30 22:05] VITALS: BP 106/44; PULSE 76; RESP 15; TEMP 37.2; O2SAT 100
[2024-03-30 23:03] VITALS: BP 110/61; PULSE 77; RESP 16; TEMP 36.9
[2024-03-30 23:20] VITALS: BP 114/68; PULSE 73; RESP 19; TEMP 36.9
[2024-03-31 00:26] VITALS: BP 107/63; PULSE 63; RESP 12; TEMP 36.8; O2SAT 98
[2024-03-31 01:37] VITALS: BP 110/74; PULSE 70; RESP 13; TEMP 36.7
[2024-03-31 01:51] VITALS: BP 103/68; PULSE 61; RESP 15; TEMP 36.8; O2SAT 98
[2024-03-31 01:52] VITALS: BP 103/68; PULSE 61; RESP 15; TEMP 36.8
[2024-03-31 02:10] VITALS: BP 103/68; PULSE 61; RESP 15; TEMP 36.8
== END 2024-03-31 02:10 | disposition home or self-care (01) ==
PROVIDERS: Physician Assistant Medical; Emergency Provider Emergency Medicine; PCP Internal Medicine
DX: R00.0 Tachycardia, unspecified (principal); D50.9 Iron deficiency anemia, unspecified; R06.02 Shortness of breath; R68.84 Jaw pain; R53.1 Weakness; Z79.899 Other long term (current) drug therapy; Z03.818 Encounter for observation for suspected exposure to other biological agents ruled out; Z87.891 Personal history of nicotine dependence
CPT/HCPCS: 0241U; 36430; 71046; 80053; 83540; 83735; 84484; 85025; 85610; 86850; 86900; 86901; 86923; 93005; 99285; P9016

== ENCOUNTER → 2024-03-30 17:33 | Outpatient (BNV) | payer BC, SELFPAY | PROVIDERS: Emergency Provider Emergency Medicine; PCP Internal Medicine; Visit Provider Internal Medicine | DX: R00.0 Tachycardia, unspecified (principal) | CPT/HCPCS: 93010 ==

== ENCOUNTER 2024-07-18 09:18 | Outpatient (AMB) | payer BC, SELFPAY ==
--- NOTE | 2024-07-18 09:26 | A.OFFVIS_ITS ---
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 Engineer Required: No Retort Engineer Services: Retort Engineer Present Information Interpreted: clinical only Bullard Machine Operator: Bullard Machine Operator Present Allergies codeine [CODEINE] Allergy (Intermediate, Verified 07/18/24 09:32) VOMITING oxycodone [OXYCODONE] Allergy (Intermediate, Verified 07/18/24 09:32) VOMITING trazodone [TRAZODONE] Allergy (Intermediate, Verified 07/18/24 09:32) NAUSEA & VOMITING opiates Allergy (Intermediate, Uncoded 07/18/24 09:32) vomiting Medication List - Last Reconciled 07/18/24 by Paula Dominique CNM ibuprofen 600 mg PO Q6H PRN multivitamin with iron (Daily Vitamin with Iron tablet) 1 tab PO DAILY Is last menstrual period known: Yes Last menstrual period: 07/11/24 HPI HPI 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 She has a primary care provider Dr. Domínguez she will be seeing him in a month or 2. She has also been seeing Hematology for severe anemia no cause has found so far. She received blood transfusion fall. She says does not seem to be genetic in her family she had a colonoscopy to rule out any GI causes of the anemia and everything was fine. She says her last mammogram was a year ago and it was fine. She gets very regular periods every 01/16/2029 days. She keeps track of her cycle very carefully and she uses a combination rhythm supplemented with use of spermicide. It has worked well for her for the last 6 years. She is not at all interested any other method of control including Mirena IUD. She says her periods are not at all heavy and she does not even go through that many pads for a menstrual cycle and she did have heavy periods when she was a teenager so she absolutely knows what that is like she says they are usually about 4 days and very light if anything. She has an appointment with Hematology for follow- up after the blood transfusion coming up she said surprisingly she did not have any labs ordered to be done ahead of time of the visit but she is assuming labs will be ordered of the visit. She is not at all worried about any STIs and has no abnormal discharge or anything and declines all cultures. Her last Pap smear was-20 24 Pap previous to that was negative in 2017. [facility] Medical History Melena Vitamin D deficiency Biliary colic Kidney stones Obesity (BMI 30-39.9) Iron deficiency anemia Surgical History History of colonoscopy H/O section (~10/2016) Hx of tonsillectomy (~1993) Family History Father Bipolar disorder Fibromyalgia Hypertension CVA (cerebral vascular accident) Cardiovascular disease Maternal Grandmother Lung cancer Other Mental health disorder Substance use disorder Social History Household Members: Significant Other and Children Housing: House Alcohol intake: never Patient Tobacco Use Status: Former Tobacco user Tobacco use type: Cigarette e-Cigarette/Vaping Use: Never Used Second Hand Smoke Exposure: Yes service: No Current occupational status: employed (works at [employer]) Current occupation: [employer] Cognitive needs: No Hearing needs: No Vision needs: Yes Female Reproductive History Menstrual Age of Menarche: 10 Duration of menses: 3-5 days Date of last menstrual period: 07/11/24 control method: none Total pregnancies: 4 Full term: 1 Date of last pap smear: 07/15/23 ([id number]) Date of Mammogram: 05/07/23 (neg) Physical Exam Vital Signs: Last Vital Signs BP 100/60 07/18/24 09:32 BMI result Body Mass Index 30.9 Const General: healthy appearing, comfortable, no acute distress, well developed and alert Nutritional Appearance: average body habitus Orientation/consciousness: patient oriented x3 Limitations: no limitations HEENT Head: Yes normocephalic Neck Neck: Yes normal visual inspection Chest Chest palpation & inspection: normal inspection of the chest Breast/axilla inspection: normal inspection of the breasts and normal inspection of the axillae Breast/axilla palpation: normal palpation of the breasts and normal palpation of the axillae Resp Effort & Inspection: normal respiratory effort GI Inspection: Yes normal to inspection, No Abdominal wall edema and No distended Palpation (GI): Soft to palpation and nontender Other: Normal external exam vagina is pink and moist very normal healthy appearing mucus consistent with follicular phase cervix multiparous pink smooth healthy appearing normal healthy mucous. Cervix deep in pelvis challenging to reach because of patient has excellent muscle tone but nontender mobile and uterus is nontender mobile not enlarged adnexa nonenlarged nontender extremely good tone with Kegel. General: Yes bladder normal to palpation External Female Exam: normal external appearance and normal appearance of the urethra Speculum Exam - Vagina: normal appearance of the vagina, normal palpation and normal vaginal discharge Speculum Exam - Cervix: normal appearance of the cervix, normal palpation and nontender Bimanual exam- vagina & uterus: normal bimanual exam, normal palpation, uterine size normal, bladder normal to palpation, consistency normal, normal palpation, uterine mobility normal, uterine shape normal, No Cervical tenderness present, non-tender and no cervical motion tenderness Bimanual Exam- Adnexa, other: normal adnexae, no masses, normal and No adnexal tenderness Neuro General: patient oriented x3 Results Reviewed Results Reviewed: atient: Rosio Rutherford MR#: [id number] : 1980 Acct:[id number] Age/Sex: 42 / F ADM Date: 05/07/23 Loc: [facility] Attending Dr: Alireza Domínguez MD Ordering Physician: Alireza Domínguez MD Results: 1Negative Date of Service: 05/07/23 Follow Up: 1 Year From Original Mammogram Procedure(s): MM tomosynthesis screening BI Accession Number(s): [id number] cc: Alireza Domínguez MD~ EXAMINATION: MM SCREENING DIGITAL BREAST TOMOSYNTHESIS, BILATERAL CLINICAL INFORMATION: Screening. Asymptomatic. COMPARISON: Mammography: This is a baseline mammogram. TECHNIQUE: Digital breast tomosynthesis is performed in both the craniocaudal and mediolateral oblique views along with computer-aided detection (CAD). Synthesized 2D images are generated from the tomosynthesis. FINDINGS: The breasts are heterogeneously dense, which may obscure small masses (ACR BI-RADS breast composition Category c). There are no significant masses, abnormal calcifications, or other abnormalities. MM/MM tomosynthesis screening BI IMPRESSION: No mammographic evidence of malignancy. ASSESSMENT: BI-RADS BI-RADS 1 - Negative RECOMMENDATION: Routine annual mammography screening. 1 year F/U This examination should not preclude the clinical evaluation of a suspicious palpable abnormality. This patient's information was entered into a reminder system with a target due date for their next mammogram. Dictated By: Neelima Rooney MD Signed By: <Electronically signed by Neelima Rooney MD in OV> 05/09/23 0850 DD/ 9 TD/TT: Rail Bender: leola: Rosio Rutherford Age/Sex: 42/F Attending: [place] Dominique CNM : 1980 Submitted by: Paula Dominique CNM Copies to: Alireza Domínguez MD MR #: [id number] Status: DEP REF Collected: 07/15/23 Location: [facility] Received: 07/19/23 Interpretation Satisfactory for evaluation. No endocervical cells seen. Negative for intraepithelial lesion or malignancy. HPV mRNA E6/E7: NOT DETECTED This assay detects E6/E7 viral messenger RNA (mRNA) from 14 high-risk HPV types (16, 18, 31, 33, 35, 39, 45, 51, 52, 56, 58, 59, 66, 68) HPV testing performed by [facility], [place], [place]. See reference laboratory portion of the EMR for entire report. Clinical Information LMP: 07/11/2023 Previous PAP test: 01/06/2017, WNL Material Received ThinPrep-Cervical Copies To Alireza Domínguez MD [address] [place] [address] [address] [place] [address] [place] [address] Electronically Signed By: TERESA Mathur ([facility]) 08/03/23 9302 The Pap Test is a screening procedure with the inherent possibility of both false negative and false positive results. Results should be interpreted in the context of historic and current clinical findings. Reliability of the Pap Test is enhanced by performing the test on a regular repetitive basis. Patient: Rosio Rutherford Age/Sex: 42/F MR#: [id number] Page 1 of 1 Name: Rosio Rutherford Age/Sex: 43/F : 1980 Unit#: [id number] Attend Dr: Nohelia Victoria DO Re03/30/24 Status: DEP [facility]: SPEC : [id number] JAMES: 03/30/24 STATUS: COMP REQ : [id number] RECD: 03/30/[address]: June Crews COMP: 03/30/24 ENTERED: 03/30/[address]: Alireza Domínguez MD ORDERED: CBC Auto Diff Test Result Flag Reference WBC 8.8 4.8-10.8 X10*3/uL RBC 3.69 L 4.20-5.50 X10*6/uL HGB 7.4 L 12.0-16.0 g/dl HCT 25.5 L 37.0-47.0 % MCV 69.1 L 80.0-98.0 fL MCH 20.1 L 27.0-33.0 pg MCHC 29.0 L 31.0-35.0 g/dl RDW 16.8 H 11.0-16.0 % PLT 196 160-400 X10*3/uL MPV 10.7 9.4-12.3 fL Neut Pct Auto 67.3 45-73 % ImGran Pct Auto 0.3 0.0-0.4 % Lymp Pct Auto 23.5 20-40 % [place] Pct Auto 7.1 2-11 % Eos Pct Auto 1.3 0-4 % Baso Pct Auto 0.5 0-2 % NRBC Pct Auto 0.0 0.0-0.2 /100WBC ANC Neut Abs # 5.9 2.0-8.3 x10*3/uL ImGran Abs Auto 0.03 0.00-0.03 X10*3/uL Lymph Abs Auto 2.1 1.2-4.9 X10*3/uL [place] Abs Auto 0.6 0.1-1.2 X10*3/uL Eos Abs Auto 0.1 0.0-0.4 X10*3/uL Baso Abs Auto 0.0 0.0-0.2 X10*3/uL NRBC Abs Auto 0.000 0.0-0.012 X10*3/uL END OF REPORT Assessment & Plan Assessment & Plan (1) Cervical cancer screening: Comment: 07/15/23 pap is neg w neg hpv Code(s): Z12.4 - Encounter for screening for malignant neoplasm of cervix Category: Medical (2) control counseling: Comment: Reviewed. Using combination of rhythm supplemented with spermicide.... Code(s): Z30.09 - Encounter for other general counseling and advice on contraception Category: Medical (3) Well woman exam with routine gynecological exam: Code(s): Z01.419 - Encounter for gynecological examination (general) (routine) without abnormal findings Category: Medical (4) Breast cancer screening: Code(s): Z12.39 - Encounter for other screening for malignant neoplasm of breast Category: Medical (5) Anemia: Comment: No particular cause found at this time, denies heavy or long menses, patient had transfusion in fall of 2023, has Hematology follow-up coming up... Code(s): D64.9 - Anemia, unspecified Category: Medical Plan -----Discussed in this visit the following: healthy balanced diet, regular and consistent exercise, getting recommended health screens, doing the best she can for her particular health concerns, kegel exercises, pap smear screening and followup recommendations, mammography screening and SBE, normal changes in cycles in her life stage--- . Reviewed her history with anemia and everything that has been ruled out so far she is very certain that she does not have heavy menses as she did when she was a teenager and she knows that is like she characterizes them as light and not long at all and no cramps even with them.. She says poor diet had been proposed as a reason for the anemia but she eats a balanced diet w meats d and veggies a variety of dark greens and eats red meat twice a week and iet -reviewed that mammograms are recommended done every year. She may still be expecting her reminder letter to come and she can review that would Dr. Domínguez if it does not. She will be meeting with hematology soon. She is very certain that the anemia can not to be related to heavy periods and she will she is not interested in any artificial means of making them even front end assistant such as a Mirena IU S. I recommend have conversation about other possible causes as it has certainly been an issue for her when she meets with Hematology. Discussed intervals of routine annual exams, yearly, Pap smears q 5 yrs, colonoscopies q 10 yrs, mammograms yearly. Timeframe/Date Comment schedule mammogram ( ordered by p[facility] rtc 1 yr ? Coding Level of Care Code Est Pt Prev Care 40-64y(40312) Diagnoses Cervical cancer screening Z12.4 control counseling Z30.09 Well woman exam with routine gynecological exam Z01.419 Breast cancer screening Z12.39 Anemia D64.9
[2024-07-18 09:32] VITALS: BP 100/60; BMI 30.9
--- OUTSIDE RECORDS SUMMARY | 2024-07-18 09:32 | XMS_ITS | Data Portability ---
Author Organization [place] - [facility], , [facility] Address [address] [place] [address] Care Team Providers Care Analysis Manager Name Role Phone ROBBY SANDRA Primary Care Provider [phone] Assessment No assessment recorded. Plan of Treatment Reminders Order Date Submit Date Provider Last Modified By Organization Details Last Modified Time Details Appointments None recorded. Lab test, urine 2015 016 [id number] [facility], [address] [place], [address], 6 04:08:26 Referral None recorded. Procedures None recorded. Surgeries None recorded. Imaging None recorded. Medication Orders mirtazapin e 30 mg disintegra ting tablet 2015 016 INTERFACE Not available 6 09:19:45 Patient TargetsNo targets recorded. Patient Instructions Encounter Date Encounter Id Patient Instructions Last Modified By Organization Details Last Modified Time 09/01/2015 [id number] After a discussi on of treatment and medication options, which included consideration of the best practices in medicine, a medical plan was provided. The patient's opinions and concerns were included in this treatment plan and goal. New medication was discussed with patient including risks, benefits ,possible and expected side effects. Patient understands and is willing to begin medication as prescribed. 1. Will? ? ?increase to 30 mg per night 2. No SCREEN time (TV, computers) for 2 hours before bed; -setting a rouitne and going to bed at same time every day, and no naps; -dimming the lights to help produce the nautural sleep hormones and reading in quiet spot in house. -Warm milk may be helpful;? ? ? decreasing liquids in evening after dinner ? ? ?to avoid waking for trips to bathroom in the middle of the night. -Patient in agreemnet w/ this plan and will call if symptoms are not resolving or worsening. Not available 09/01/2015 09:19:43 10/13/2015 [id number] After a discussi on of treatment and medication options, which included consideration of the best practices in medicine, a medical plan was provided. The patient's opinions and concerns were included in this treatment plan and goal. Follow up in 3 months. Not available 10/13/2015 10:34:29 01/12/2016 [id number] After a discussi on of treatment and medication options, which included consideration of the best practices in medicine, a medical plan was provided. The patient's opinions and concerns were included in this treatment plan and goal. Continue w/ exercise. Follow up in Jun for physical. Not available 01/12/2016 10:04:57 03/11/2016 [id number] After a discussi on of treatment and medication options, which included consideration of the best practices in medicine, a medical plan was provided. The patient's opinions and concerns were included in this treatment plan and goal. Congratulations !! Not available 03/11/2016 15:08:50 07/05/2016 [id number] Well Visit, Ages 18 to 65: Care Instructions [email or web address] Not available 07/05/2016 16:00:17 After a discussi on of treatment and medication options, which included consideration of the best practices in medicine, a medical plan was provided. The patient's opinions and concerns were included in this treatment plan and goal. 1. Increase VITAMIN D 3 to 1000 I.U. in every day & calcium 1200 mg total in diet. If you can't get it in diet alone then it is ok to do a supplement of 500 mg of calcium per day, but dietary sources are BEST. 2. Work toward Cardiovascular exercise 30 mins 5 x per week. Walking at a fast pace is great. 3. Routine use of sunscreen and bug spray (tick checks when appropriate). 4. Try to work toward a Mediterranean Diet. For more information you can visit www.[facility].org 5. Follow up in 1 year for physical. Not available 07/05/2016 15:58:05 Reason for Referral None Reported. Results Created Date Observation Date Name Description Value Unit Range Abnormal Flag Note LastModifiedBy Organization Detail LastModifiedTime 03/11/20 16 03/11/2016 pregn bin test, urine HCG POC Positi ve positive Not Available [address], [address], 03/11/2016 14:52:06 Result Notes None recorded. Problems No Known Problems Procedures Surgical History Date Name Laterality Status Provider Name and Address Organization Details Recorded Time Tonsillectomy completed Filomena Guevara PA-C [address] [place] [address], [phone], [facility] 05/29/2014 09:46:47 Imaging Results None recorded. Procedure Notes None recorded. Medical Equipment None Reported. Allergies Allergen ID Allergen Name Allergen Category Reaction Reaction Severity Criticality Documentation Date Start Date Code Code System Note Provider Name and Address Organization Details Recorded Time 732816 codeine medicatio n vomiting severe Not available 05/29/2014 2670 RxNorm Livia Young [facility] 4 09:25:05 311742 trazodone medicatio n dizziness Not available Not available 07/31/2015 04839 RxNorm nause a,res tless ness Judit Darline n, RMA [facility] 6 12:26:06 Medications Name Sig Start Date Stop Date Status Note LastModified by Organization Details LastModified Time mirtazapine 30 mg disintegrat ing tablet Place 1 tablet every day by transling ual route. 01/11 completed Not Available Not Available Not Available trazodone 50 mg tablet Take 1 tablet every day by oral route at bedtime. 07/29 completed Not Available Not Available Not Available phenazopyri dine 200 mg tablet take 1 tablet by mouth three times a day if needed 01/11 completed Not Available Not Available Not Available ondansetron HCl 4 mg tablet Take 1 tablet every 6 hours by oral route as needed. active Not Available Not Available No t Available sulfamethox azole 800 mg-trimetho prim 160 mg tablet take 1 tablet by mouth twice a day for 3 days 01/11 completed Not Available Not Available Not Available tramadol 50 mg tablet Take 1 tablet every 4 hours by oral route as needed. active Not Available Not Available No t Available mirtazapine 15 mg disintegrat ing tablet Place 1 tablet every day by transling ual route. active Not Available Not Available No t Available 1 tablet daily active Not Available Not Available No t Available omeprazole 20 mg tablet,salina yed release Take 1 tablet every day by oral route. active Not Available Not Available No t Available Vitals Date Recorded Body height Body weight Body mass index (BMI) Heart rate Systolic blood pressure Diastolic blood pressure Provider Name and Address Organization Details Last Updated DateTime 7 160.655 cm 10756.5 g 30 kg/m2 80 /min 108 mm[Hg] 62 mm[Hg] Hanna Rock HAND CEMENTER [facility] 7 15:33:03 Date Recorded Body height Heart rate Systolic blood pressure Diastolic blood pressure Provider Name and Address Organization Details Last Updated DateTime 09/01/2015 160.655 cm 66 /min 100 mm[Hg] 60 mm[Hg] Fartun Engle [facility] 09/01/2015 09:03:34 Date Recorded Body weight Body height Body mass index (BMI) Heart rate Systolic blood pressure Diastolic blood pressure Provider Name and Address Organization Details Last Updated DateTime 6 91495.8 93777 g 160.655 cm 28.8 kg/m2 68 /min 102 mm[Hg] 66 mm[Hg] Judit perez [facility] 6 10:09:10 Date Recorded Body height Body weight Body mass index (BMI) Heart rate Systolic blood pressure Diastolic blood pressure Provider Name and Address Organization Details Last Updated DateTime 6 160.655 cm 92548.3 7 g 28.3 kg/m2 64 /min 110 mm[Hg] 60 mm[Hg] Estelle Acosta [facility] 6 09:35:37 Date Recorded Body height Body weight Body mass index (BMI) Heart rate Systolic blood pressure Diastolic blood pressure Provider Name and Address Organization Details Last Updated DateTime 6 160.655 cm 39010.5 6 g 28.6 kg/m2 76 /min 114 mm[Hg] 58 mm[Hg] Judit perez [facility] 6 14:40:38 Social History Question Answer Notes LastModified by Organizat ion Details LastModified Time Tobacco Smoking Status [facility] 09:30:56 What Is Your Level Of Alcohol Consumption? None [email or web address] Information not available 05/29/2014 Do You Wear A Helmet When Biking? Yes Does Not Ride Information not available 07/01/2015 What Is Your Level Of Caffeine Consumption? None Information not available 05/29/2014 How Much Tobacco Do You Chew? None [email or web address] Information not available 05/29/2014 Are You Currently Employed? Yes Information not available 07/30/2015 What Type Of Diet Are You Following? REGULAR [email or web address] Information not available 05/29/2014 Which Illicit Or Recreational Drugs Have You Used? 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 0 Information not available 07/01/2015 Are There Any Guns Present In Your Home? No [email or web address] Information not available 05/29/2014 Live Alone Or With Others? With Others [email or web address] Information not available 05/29/2014 Patient Has Health Care Proxy Signed And In Chart No Will Do And Have Her Daljit, 07/05/16 Information not available 07/05/2016 Marital Status Single Engaged To Daljit; November 28- [email or web address] Information not available 05/29/2014 Mosquito Repellent Used Routinely Yes If Needed Information not available 07/01/2015 How Many Children Do You Have? 1 Had 1 Child, Gave Up For Adoption In 1999 [email or web address] Information not available 05/29/2014 Are There Any Occupational Health Risks Where You Work? None Information not available 07/01/2015 Seat Belts Used Routinely Yes [email or web address] Information not available 05/29/2014 Are You Sexually Active? Yes [email or web address] Information not available 05/29/2014 Smoke Alarm In Home Yes [email or web address] Information not available 05/29/2014 How Much Tobacco Do You Smoke? No Information not available 07/30/2015 General Stress Level Medium [email or web address] Information not available 05/29/2014 Do You Use Sunscreen Routinely? Yes [email or web address] Information not available 05/29/2014 Sex: Unknown Functional Status Question Answer Note LastModified by Organizat ion Details LastModified Time What is your exercise level? Occasional Information not available 07/30/2015 Mental Status None recorded. Family History Relationship Description Onset Age of this Age Resolved Age Notes LastModified by Organization Details LastModified Time Mother Well adult Not availab le 07/30/2015 10:18:02 Father Cerebrovascu lar accident 57 [email or web address] Not available 06/2015 10:18:02 Father Primary fibromyalgia syndrome [email or web address] Not available 2015 10:18:02 Father Osteoarthrit is [email or web address] Not available 2015 10:18:02 Father Degeneration of intervertebr al disc [email or web address] Not available 2015 10:18:02 Father Bipolar disorder [email or web address] Not available 2015 10:18:02 Father History of drug abuse [email or web address] Not available 07/29 10:18:02 Father Hypertensive disorder [email or web address] Not available 2015 10:18:02 Father Myocardial infarction [email or web address] Not available 07/29 10:18:02 Father Bundle branch block [email or web address] Not available 06/2015 10:18:02 Brother Asthma Not available 07/30/2015 10:18:02 Maternal Grandmother Malignant tumor of lung smoker [email or web address] Not available 2015 10:18:02 Notes:No breast or colon ca. NO diabetes. Medical History Condition Response PSYCHIATRIC Y Gynecological History Statement/Question Response Menses Monthly Y History of Abnormal Pap N Current Control Method None Age at Menarche 10 Obstetrics History GPAL:G 0 P 0 0 0 0 Immunizations Vaccine Type Date Status Note Provider Nam e and Address Organization Details Recorded Time Tdap 07/01/2015 completed Not Available [facility] 06/16/2019 02:20:15 Past Encounters Encounter ID Performer Location Encounter Start Date Encounter Closed Date Diagnosis/Indication Diagnosis SNOMED-CT Code Diagnosis ICD10 Code Diagnosis Note [id number] Birdie bean , [facility], OFFICE [address] [place] [id number] 05/29/2014 09:07:13 05/29/2014 10:06:19 Adult health examination 537922112 see Risk Assessment and Lifestyle Change Counseling section above Counseling [id number] Knee pain 90877942 chron ic L knee pain, worse after sitting for awhile. No specific injury. Abdominal pain 57051769 RUQ pain, seen in ER 3 weeks ago, felt to be gallbladde r, but US and CT did not show stones. Recheck LFTs [id number] , [facility], OFFICE [address] [place] [id number] 06/19/2014 10:13:27 06/19/2014 10:34:47 Leukorrhea [id number] Screening for malignant neoplasm of cervix 948681300 [id number] Sandra Picahrdo NP , [facility], OFFICE [address] [place] [id number] 07/01/2015 13:35:27 07/01/2015 14:38:44 Adult health examination 199923867 Z00.00 see Risk Assessment and Lifestyle Change Counseling section above Counseling 237999890 Z71 .9 Administra tion of bacterial and viral vaccine 126634822 Z23 Insomnia 132140330 G47.0 0 Administra tion of diphtheria, pertussis, and tetanus vaccine 379374909 Z23 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 I am unable to reproduce symptoms with percussion of the ulnar nerve at the elbow or wrist in at this time and unable to reproduce any significan t weakness of her hands. Nonetheles s she is concerned about slasher runner strength weakness on the left hand that she does feel is significan t. Due to this loss of slasher runner strength have advised that she follow-up with a orthopedic hand surgeon to discuss if more aggressive treatment is needed for treatment of her ulnar neuropathy . Until that time I did advise that she attempt to sleep with her elbows in a more extended position to reduce stress upon the ulnar nerve. I'm happy to see her back as needed for continued care. [id number] KARI Bliss, [facility], OFFICE [address] [place] [id number] 6 07/31/2015 12:05:37 07/31/2015 13:35:31 Insomnia 180795220 G47.00 [id number] KARI Bliss, [facility], OFFICE [address] [place] [id number] 6 09/01/2015 08:55:31 09/01/2015 09:21:07 Insomnia 142065773 G47.00 [id number] KARI Bliss, [facility], OFFICE [address] [place] [id number] 10/13/2015 10:00:03 10/13/2015 10:33:10 Insomnia 163161889 G47.00 Improved. Weight increased 7772987 00 R63.5 Will work on diet and exercise; Online infor and 1500 christine given. [id number] KARI Bliss, [facility], OFFICE [address] [place] [id number] 6 01/12/2016 09:27:51 01/12/2016 10:05:21 Insomnia 770647541 G47.00 Improved off meds. [id number] KARI Bliss, [facility], OFFICE [address] [place] [id number] 03/11/2016 14:31:44 03/11/2016 16:40:00 Amenorrhea 08390487 N91.2 [id number] KARI Bliss, [facility], OFFICE [address] [place] [id number] 6 07/05/2016 15:25:12 07/05/2016 16:02:13 Adult health examination 277209042 Z00.00 see Risk Assessment and Lifestyle Change Counseling section above Counseling 237581926 Z71 .9 Health Concerns Section Related Observation LastModified by Organization Detai ls LastModified Time None Recorded Concern Status LastModified by Organization Details LastModified Time None Recorded Advance Directives Directive None Recorded Payers Encounter Date Sequence Insurance Name Policy Number Policy Zee Covered Member ID Zee Member ID Guarantor Name 09/01/2015 1 [place] [id number] Rosio A Helems [id number] Rosio Helems 10/13/2015 1 [place] [id number] Rosio A Helems [id number] Rosio Helems 01/12/2016 1 [place] [id number] Rosio A Helems [id number] Rosio Helems 03/11/2016 1 [place] [id number] Rosio A Helems [id number] Rosio Helems 07/05/2016 1 [place] [id number] Rosio A Helems [id number] Rosio Helems Notes Date Note Type Note Provider Name and Address Organization Details Recorded Time 09/01/2015 text/html InsomniaReported bypatient.Onset/Timin g:chronic; falling asleep is ok, wakes up 3-5 x x a noc for the last 2 weeks. was sleeping better through the noc- was only waking up 1-2 x and would get right back to sleep. Severity:same Duration:over 10 yrs has had issues Context:benadryl does work- but feels groggy. Modifying factorsno caffeine, no etoh. stressors in life- getting marrided in november. Associated Symptoms:no anxiety; no snoring; no depression Planning for wedding still needs to get cake, dj, and caterer- having at BF parent's house. Will f/u in 6 weeks w/ higher dose of meds today started. Sandra Pichardo, KARI [address] [place] [address], [phone], [facility] 09/01/2015 13:00:45 10/13/2015 text/html Planning for wed ding still needs to get cake, dj, and caterer- having at BF parent's house. having wedding november 28; Will f/u in 6 weeks w/ higher dose of meds today started. Sandra Pichardo NP [address] [place], [address], [facility] 10/13/2015 10:35:06 10/13/2015 text/html InsomniaReported bypatient.Onset/Timin g:chronic; going out to eat and is nto filling full. sleeping better. mood is muc better. Severity:same Duration:over 10 yrs has had issues Context:melina does work- but feels groggy. Modifying factorsno caffeine, no etoh. stressors in life- getting marrided in november. Associated Symptoms:no anxiety; no snoring; no depression Sandra Pichardo NP [address] [place], [address], [facility] 10/13/2015 10:35:06 01/12/2016 text/html Insomnia- waking up 3-4 times; only up 5- 10 mins. feels like she gets back to sleep. no caffeine.Exercise- walking 20 mins. quit meds and lost wt. Attempt at work- to get up and walk. Got and is happy no issues. Sandra Pichardo NP [address] [place], [address], [facility] 01/12/2016 10:05:11 03/11/2016 text/html lmp 01/30/16EDC 11/05/16Has been taking - vits.Feeling a little tired otherwise well. No concerns. Given # to obgyn, does not want midwives. Sandra Pichardo NP [address] [place], [address], [facility] 03/11/2016 15:10:06 07/05/2016 text/html Physical Exam/FemaleReported bypatient.PHAPatient is here for a Wellness Visit. She describes her health status as good. Patient's health is the same as last year.Notes:Due october mos preg- having girl. Having occ palpitations - has always had them, notices them more now that preg. maybe 1 x per mos. lasts for few secs, no sob, palp. Risk Assessment and Lifestyle Change Counseling 18-50Reported bypatient.Coronary Artery Disease Risk Assesment:Family History of Coronary Artery Disease Breast Cancer Risk Assessment:No family history of breast cancer Lung Cancer Risk Assessment:Has used cigarettes Cognitive/Behavioral Risk Assessment:No personal history of mental illness Safety Risk Assessment:Do you feel safe in your current relationship?YES Diet:Counseled about eating a diet low in trans and saturated fats and high in fiber, fruits and vegetables; Counseled about appropriate calcium intake and good dietary sources of calcium.; Counseled about the importance of maintaining a positive calcium balance and taking 1000 iu Vitamin D daily.; Discussed the value of a Mediterranean diet, and eating more fruits and vegetables Exercise counseling:Discussed the importance of daily physical activity; Discussed the importance of weight bearing exercise Safety:Counseled about protecting skin from the sun and lowering the risk of skin cancer; Counseled about home safety including use of smoke detectors, CO detectors, keeping home water temperature less than 120 Family Planning:Desires Sandra Pichardo NP [address] [place] [address], [phone], [facility] 07/05/2016 15:59:39 OBGyn Episode No OBEpisode recorded.
== END 2024-07-18 10:29 | disposition home or self-care (01) ==
PROVIDERS: PCP Internal Medicine; Visit Provider Advanced Practice Midwife
DX: Z01.419 Encounter for gynecological examination (general) (routine) without abnormal findings (principal); D64.9 Anemia, unspecified
CPT/HCPCS: 99396; 99459

== ENCOUNTER 2024-09-05 09:00 | Outpatient (RCR) | payer BC, SELFPAY ==
[2024-07-31 09:02] VITALS: BP 116/52; PULSE 66; RESP 16; TEMP 36.6; O2SAT 100
[2024-07-31] MEDS: Iron Sucrose Complex 200 MG/10 ML VIAL IVPUSH (09:08)
[2024-08-07 08:51] VITALS: BP 99/51; PULSE 59; RESP 18; TEMP 36.6; O2SAT 100
[2024-08-07] MEDS: Iron Sucrose Complex 200 MG 440 MG IV (08:58)
[2024-08-07] MEDS: 0.9 % Sodium Chloride Flush 10 ML SYRINGE 5 ML IVFLUSH (09:15)
[2024-08-15 08:50] VITALS: BP 103/44; PULSE 57; RESP 16; TEMP 36.5; O2SAT 99
[2024-08-15] MEDS: Iron Sucrose Complex 200 MG 440 MG IV (08:58)
[2024-08-21 08:50] VITALS: BP 105/65; PULSE 63; RESP 14; TEMP 36.6; O2SAT 100
[2024-08-21] MEDS: Iron Sucrose Complex 200 MG 440 MG IV (09:01)
[2024-08-21] MEDS: 0.9 % Sodium Chloride Flush 10 ML SYRINGE 5 ML IVFLUSH (09:22)
[2024-08-29 08:51] VITALS: BP 104/45; PULSE 58; RESP 16; TEMP 36.7; O2SAT 100
[2024-08-29] MEDS: Iron Sucrose Complex 200 MG 440 MG IV (09:03)
[2024-09-05 08:47] VITALS: BP 106/57; PULSE 62; RESP 16; TEMP 36.5; O2SAT 99
[2024-09-05] MEDS: Iron Sucrose Complex 200 MG 440 MG IV (08:52)
== END 2024-09-05 09:12 | disposition home or self-care (01) ==
LOC: HO.INF 09:00
PROVIDERS: Visit Provider Internal Medicine
DX: D64.9 Anemia, unspecified (principal)
CPT/HCPCS: 96365; 96374; J1756

== ENCOUNTER 2024-09-06 08:47 | Outpatient (AMB) | payer BC, SELFPAY ==
[2024-09-06 08:49] VITALS: BP 106/62; PULSE 76; O2SAT 97; BMI 30.8
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
--- OUTSIDE RECORDS SUMMARY | 2024-09-06 09:11 | XMS_ITS | Clinical Summary ---
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 Role Phone Unavailable Primary Care Provider Unavailabl e Allergies No known active allergies Immunizations Name Administration Dates Next Due Tdap 07/30/2016 Social History Tobacco Use Types Packs/Day Years Used Date Smoking Tobacco: Never Smokeless Tobacco: Never Tobacco Cessation:Counseling Given: Not Answered Alcohol Use Standard Drinks/Week Comments Never 0 (1 standard drink = 0.6 oz pur e alcohol) Alcohol Answer Date Recorded Frequency of Alcohol Consumption Not on file 12/14/2023 Average Number of Drinks Not on file 024 Frequency of Binge Drinking Not on file 11/27 Score 0 12/14/2023 Depression Answer Date Recorded Patient Health Questionnaire-9 Score 9 12/14/2023 Patient Health Questionnaire-9 Score 9 12/14/2023 Last PHQ-9: Questionnaire Data Not on file 0 12/14/2023 Housing Stability Answer Date Recorded What is your housing situation today? I have [employer] 12/07/[address] you li ve. Do you have problems with any of the following? None of the above 12/07/2023 Food Insecurity Answer Date Recorded Within the past 12 months, y ou worried that your food would run out before you got money to buy more: Never True 12/07/2023 Within the past 12 months,th e food you bought just didn't last and you didn't have enough money to get more: Never True 02/2024 Transportation Answer Date Recorded In the past 12 months, has l ack of transportation kept you from medical appts, meetings, work or from getting things needed for daily living? No 12/07/2023 Utilities Answer Date Recorded In the past 12 months, has t he electric, gas, oil or water [employer] threatened to shut off services in your home? No 12/07/2023 Depression Answer Date Recorded Patient Health Questionnaire-2 Score 2 12/14/2023 Internet Access Answer Date Recorded Internet Access Q1 Yes 01/30/2024 Internet Access Q2 Not on file 01/30/2024 Comments Unknown Sex and Gender Information Value Date Recorded Sex Assigned at Female 03/29/2022 10:39 AM EDT Legal Sex Female 10:39 AM EDT Gender Identity Female 03/29/2022 10:39 AM EDT Sexual Orientation Choose not to disclose 2023 7:02 PM EDT Sexual Orientation Straight 09/20/2023 7: 02 PM EDT Last Filed Vital Signs Vital Sign Reading Time Taken Comments Blood Pressure 106/60 12/14/2023 2:17 PM EDT Pulse 76 12/14/2023 2:17 PM EDT Temperature 36.4 ??C (97.6 ??F) 12/14/2023 2:17 PM ED T Respiratory Rate 19 12/14/2023 2:17 PM EDT Oxygen Saturation 97% 12/14/2023 2:17 PM EDT Inhaled Oxygen Concentration - - Weight 86.3 kg (190 lb 3.2 oz) 12/14/2023 2:17 P M EDT Height 157.5 cm (5' 2 ) 12/14/2023 2:17 PM EDT Body Mass Index 34.79 12/14/2023 2:17 PM EDT Plan of Treatment Health Maintenance Due Date Last Done Comments HIV Screening 1979 Family Planning (PISQ) 09/24/1994 Hepatitis C Screening 09/24/1997 Hepatitis B Vaccines (1 of 3 - 19+ 3-dose series) 09/24/1998 Pap Smear 09/24/2000 Cervical Cancer Screening 09/24/2009 HPV/Cotest 09/24/2009 Mammogram 2019 COVID-19 Vaccine ( - 2023-2 5 season) 2024 10/30/2020, 10/01/2020 Influenza Vaccine (#1) 2024 Depression Monitoring 06/15/2024 12/14/2023 , 12/14/2023 SDOH Screening 12/06/2024 12/07/2023 Alcohol/Substance Use Screening 12/13/2024 12/14/2023 Depression Screening 12/13/2024 12/14/2023, 12/14/2023 Tobacco Screening 12/13/2024 12/14/2023 DTaP/Tdap/Td Vaccines (2 - T d or Tdap) 07/30/2026 07/30/2016 Zoster Vaccines (1 of 2) 09/24/2029 RSV Patients and Patients Aged 60 years or older (1 - 1-dose 75+ series) 09/24/2054 HIB Vaccines Aged Out No longer eligi ble based on patient's age to complete this topic HPV Vaccines Aged Out No longer eligi ble based on patient's age to complete this topic Hepatitis A Vaccines Aged Out No long er eligible based on patient's age to complete this topic IPV Vaccines Aged Out No longer eligi ble based on patient's age to complete this topic Meningococcal Vaccine Aged Out No kaz kati eligible based on patient's age to complete this topic Pneumococcal Vaccine: Pediatrics (0 to 5 Years) and At-Risk Patients (6 to 49) Years) Aged Out No longer eligible b ased on patient's age to complete this topic RSV under 20 months Aged Out No longe r eligible based on patient's age to complete this topic Rotavirus Vaccines Aged Out No longer eligible based on patient's age to complete this topic [place] [address] [place] [address] PPO
== END 2024-09-06 09:28 | disposition home or self-care (01) ==
LOC: HO.HMCH 08:47
PROVIDERS: PCP Internal Medicine; Visit Provider Internal Medicine
DX: Z00.00 Encounter for general adult medical examination without abnormal findings (principal); D50.8 Other iron deficiency anemias; E66.9 Obesity, unspecified; Z68.30 Body mass index [BMI] 30.0-30.9, adult; E55.9 Vitamin D deficiency, unspecified; Z12.31 Encounter for screening mammogram for malignant neoplasm of breast

== ENCOUNTER 2024-09-06 08:47 | Outpatient (REF) | payer BC, SELFPAY ==
[2024-09-06 10:01] LABS: MANUAL DIFF FLAG NO
[2024-09-06 10:23] LABS: Immature Retic Fraction 14.8 % (3.0-15.9); Retic HGB Equivalent 30.9 pg (30.0-35.0); Reticulocyte Percent 1.7 % (0.5-1.8); Reticulocytes Absolute 0.081 X10*6/uL (0.026-0.095)
--- OUTSIDE RECORDS SUMMARY | 2024-09-06 10:36 | XMS_ITS | Clinical Summary ---
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 threatened to shut off services in your [...] patient's age to complete this topic [place] [address] [place] [id number] PPO
[2024-09-06 10:38] LABS: Appearance Urine Clear; Color Urine Yellow; Glucose Urine UA Negative (Negative); Leukocyte Esterase Urine Small (1+) (Negative); Nitrite Urine Negative (Negative); PH 5.5 (5.0-9.0); Specific Gravity - Urine 1.025 (1.005-1.025); UMIC TRIGGER UACC YES; Urine Blood Moderate (2+) (Negative); Urine Ketones Trace mg/dL (Negative); Urine Protein Negative (Neg-Trace)
[2024-09-06 10:48] LABS: Basophils Percent Auto 0.7 % (0-2); Eosinophils Absolute Auto 0.1 X10*3/uL (0.0-0.4); Eosinophils Percent Auto 1.7 % (0-4); Hematocrit 36.1 % (37.0-47.0); Hemoglobin 11.2 g/dl (12.0-16.0); Imm Gran Abs Auto 0.01 X10*3/uL (0.00-0.03); Imm Gran Pct Auto 0.2 % (0.0-0.4); Lymphocytes Absolute Auto 1.7 X10*3/uL (1.2-4.9); Lymphocytes Percent Auto 28.9 % (20-40); Mean Corpuscular Hemoglobin 23.8 pg (27.0-33.0); Mean Corpuscular Volume 76.6 fL (80.0-98.0); Monocytes Absolute Auto 0.4 X10*3/uL (0.1-1.2); Monocytes Percent Auto 6.4 % (2-11); Neutrophils Absolute Auto 3.7 x10*3/uL (2.0-8.3); Neutrophils Percent Auto 62.1 % (45-73); Platelet Count 181 X10*3/uL (160-400); Red Blood Count 4.71 X10*6/uL (4.20-5.50)
[2024-09-06 11:01] LABS: Bacteria Urine Trace (None Seen); Calcium Oxalate Crystals Urine Present; Hyaline Casts Urine 0-2 /LPF (0-2); RBC Urine 0-2 /HPF (0-2); UACC Culture Trigger YES
[2024-09-06 11:11] LABS: Haptoglobin 150 mg/dL (35-250)
[2024-09-06 11:16] LABS: Alanine Aminotransferase 21 U/L (0-31); Albumin Level 4.1 g/dL (3.5-5.0); Alkaline Phosphatase 71 U/L (39-117); Anion Gap 11 (12-20); Aspartate Amino Transferase 23 U/L (5-31); Bilirubin Total 0.3 mg/dL (0.0-1.0); Blood Urea Nitrogen 9 mg/dL (9-16); Calcium 9.1 mg/dL (8.4-10.2); Carbon Dioxide 24 mmol/L (22-29); Chloride 112 mmol/L (96-108); Cholesterol 150 mg/dL (<200); Estimated Glomerular Filt Rate > 60; Glucose Fasting 83 mg/dL (60-99); Glucose Random 83 mg/dL (60-115); HDL Cholesterol 45 mg/dL (>40); LDL Cholesterol Calculated 87 mg/dL (<100); Sodium 143 mmol/L (135-145); Total Protein 7.1 g/dL (6.5-8.0); Triglycerides 90 mg/dL (<150)
[2024-09-06 11:20] LABS: Lactate Dehydrogenase 135 U/L (122-220)
[2024-09-06 11:47] LABS: Vitamin B12 956 pg/mL (200-900)
[2024-09-09 17:08] LABS: Copper, serum 97 mcg/dL (70-175)
== END 2024-09-06 08:48 | disposition home or self-care (01) ==
LOC: HO.LAB 08:47
PROVIDERS: Internal Medicine; PCP Internal Medicine; Visit Provider Internal Medicine
DX: Z00.00 Encounter for general adult medical examination without abnormal findings (principal); D50.8 Other iron deficiency anemias; E55.9 Vitamin D deficiency, unspecified; E66.9 Obesity, unspecified; Z68.30 Body mass index [BMI] 30.0-30.9, adult; E78.00 Pure hypercholesterolemia, unspecified; R30.0 Dysuria
CPT/HCPCS: 36415; 80053; 80061; 81001; 82306; 82525; 82607; 82746; 83010; 83615; 84443; 85025; 85045; 87086; 96127

== ENCOUNTER 2024-10-27 07:32 | Outpatient (REF) | payer BC, SELFPAY ==
--- OUTSIDE RECORDS SUMMARY | 2024-10-27 07:34 | XMS_ITS | Clinical Summary ---
Author Organization [employer] Address [address] [place] [address] Care Team Providers Care Fisher Dip Net Name Role Phone Unavailable Primary Care Provider Unavailabl e Allergies No known active allergies Immunizations Immunization Administration Dates Next Due Tdap 07/30/2016 Social [...] t he electric, gas, oil or water company threatened to shut off services in your [...] Health Maintenance Due Date Last Done Comments CT Colonography 1979 Colonoscopy 1979 Colorectal Cancer Screening 1979 FIT DNA/Cologuard 1979 FIT 1979 FOBT 1979 HIV Screening 1979 Sigmoidoscopy 1979 Disability Screening 1979 Family Planning (PISQ) 09/24/1994 Hepatitis C Screening 09/24/1997 Hepatitis B Vaccines (1 of 3 - 19+ 3-dose series) 09/24/1998 Pap Smear 09/24/2000 Cervical Cancer Screening 09/24/2009 HPV/Cotest 09/24/2009 Mammogram 2019 COVID-19 Vaccine (3 - 2023-2 5 season) 2024 10/30/2020, 10/01/2020 Influenza Vaccine (#1) 2024 Depression Monitoring 06/15/2024 12/14/2023 , 12/14/2023 SDOH Screening 12/06/2024 12/07/2023 Alcohol/Substance Use Screening 12/13/2024 12/14/2023 Tobacco Screening 12/13/2024 12/14/2023 DTaP/Tdap/Td Vaccines [...] patient's age to complete this topic Meningococcal B Vaccine Aged Out No l onger eligible based on patient's age to complete [...] patient's age to complete this topic Insurance [employer] PPO
== END 2024-10-27 07:33 | disposition home or self-care (01) ==
LOC: HO.MAMMO 07:32
PROVIDERS: PCP Internal Medicine; Visit Provider Internal Medicine
DX: Z13.89 Encounter for screening for other disorder (principal)

== ENCOUNTER 2025-03-08 09:30 | Outpatient (AMB) | payer BC, SELFPAY ==
[2025-03-08 09:38] VITALS: BP 110/70; PULSE 55; O2SAT 99; BMI 28.6
--- NOTE | 2025-03-08 09:38 | MHC.PC.OV ---
Vital Signs 03/08/25 09:38 Height 5 ft 4 in Weight 166 lb 8 oz BMI 28.6 BP 110/70 Blood Pressure Location Lt brachial Position Sitting Pulse 55 Pulse Source Pulse Oximeter Pulse Oximetry (%) 99 Oxygen Delivery Method Room Air Intake Visit Reasons: anemia Woods Boss Required: No Accompanied by: Self / Same As Patient Allergies codeine (CODEINE) Allergy (Intermediate, Verified 03/08/25 09:57) VOMITING oxycodone (OXYCODONE) Allergy (Intermediate, Verified 03/08/25 09:57) VOMITING trazodone (TRAZODONE) Allergy (Intermediate, Verified 03/08/25 09:57) NAUSEA & VOMITING opiates Allergy (Intermediate, Uncoded 03/08/25 09:57) vomiting Medication List - Last Reconciled 03/08/25 by Alireza Domínguez MD cholecalciferol (vitamin D3) (Vitamin D3) 500 units PO DAILY ibuprofen 600 mg PO Q6H PRN iron 18 mg PO DAILY multivitamin (Multiple Vitamins tablet) 1 tab PO DAILY Tobacco use date assessed: 03/08/25 Dental Screening Dental Screen Date: 03/08/25 Did you have a dental visit in the last 12 months?: Yes Did you have a dental problem in the last 6 months where you did not have access to dental care?: No Was dental information given to patient?: Patient has dentist HPI anemia HPI Details Patient comes in today for her follow up visit States that she feels okay She denies any headaches or dizziness She denies any chest pains, no increased SOB No nausea/vomiting, no abdominal pain No change in bowel habits noted She still receives IV iron infusion as needed and continues to follow up with hematology (Dr. Armstrong) regularly for her anemia She would like to know how she did on her labs back in August 2024 She is scheduled for her yearly gynecology exam next August (2025) and her annual mammogram in October 2025 FORMERLY [facility], [facility] Medical History Overweight (BMI 25.0-29.9) Melena Vitamin D deficiency Biliary colic Kidney stones Obesity (BMI 30-39.9) Iron deficiency anemia Surgical History History of colonoscopy H/O section (~10/2016) Hx of tonsillectomy (~1993) Family History Father Bipolar disorder Fibromyalgia Hypertension CVA (cerebral vascular accident) Cardiovascular disease Maternal Grandmother Lung cancer Other Mental health disorder Substance use disorder Social History Household Members: Significant Other and Children Housing: House Alcohol intake: never Patient Tobacco Use Status: Former Tobacco user Tobacco use type: Cigarette e-Cigarette/Vaping Use: Never Used Second Hand Smoke Exposure: Yes service: No Current occupational status: employed (works at [employer]) Current occupation: [employer] Cognitive needs: No Hearing needs: No Vision needs: Yes Female Reproductive History Menstrual Age of Menarche: 10 Questionnaire Thrive Questionnaire Date Thrive assessed: 08/30/24 I am a: Patient What is your living situation today?: I have a steady place to live Within the past 12 months, did the food you bought not last and you didn't have the money to get more?: Never true Within the past 12 months, did you worry whether your food would run out before you got money to buy more?: Never true Do you have trouble paying for medicines?: No Do you have trouble getting transportation to medical appointments?: No Do you have trouble paying your heating and electricity bill?: No Do you have trouble taking care of your child, family member or friend?: No Do you have trouble with day-to-day activities such as bathing, preparing meals, shopping, managing finances, etc.?: No Are you currently unemployed and looking for a job?: No Are you interested in more education?: No Please select the resources that you would like help with: None THRIVE Score: 0 AUDIT C Alcohol Use Questionnaire (AUDIT-C) 1. How often do you have a drink containing alcohol?: Never 3. How often do you have six or more drinks on one occasion?: Never Total Score: 0 Score Reviewed/Action Taken: Yes BALAJI-7 AMB Questionnaire BALAJI-7 Date BALAJI - 7 assessed: 09/06/24 Source: Developed by Drs. Daljit Ovalle, Merissa Monzon, Nishant Anderson and colleagues, with an educational destini from [employer]. Review of Systems Const Denies chills, Reports fatigue, Denies fever(s) and Denies headache(s) ENT Denies dysphagia, Denies dizziness, Denies otalgia, Denies headache(s), Denies neck pain, Denies odynophagia and Denies sore throat Card Denies chest pain, Denies rapid heart rate, Denies irregular heart rhythm, Denies palpitations and Denies dyspnea Resp Denies chest congestion, Denies cough and Denies dyspnea GI Denies abdominal pain, Denies constipation, Denies dysphagia, Denies heartburn, Denies diarrhea, Denies nausea (occasionally but improved since her iron infusions), Denies odynophagia and Denies vomiting Denies hematuria, Denies difficulty voiding, Denies nocturia, Denies dysuria and Denies urinary urgency Musc Denies back pain, Denies arthralgias and Denies neck pain Skin/Breast Denies rash Neuro Denies dizziness, Denies headache(s) and Denies paresthesias Psych Denies anxiety and Denies depression Endo Reports fatigue and Denies palpitations Massimo/Lymph Denies easy bruising Physical exam (Primary Care) Vital Signs: Last Vital Signs Pulse 55 03/08/25 09:38 BP 110/70 03/08/25 09:38 Pulse Ox 99 03/08/25 09:38 Oxygen Delivery Method Room Air 03/08/25 09:38 BMI result Body Mass Index 28.6 Tobacco/Smoking Status: Tobacco use Status Tobacco use date assessed 03/08/25 03/08/25 09:45 Patient Tobacco Use Status Former Tobacco user 03/08/25 09:45 Tobacco use type Cigarette 03/08/25 09:45 e-Cigarette/Vaping Use Never Used 03/08/25 09:45 Thrive Assessment: Date of Thrive Assessment Date Thrive assessed 08/30/24 03/08/25 09:45 Const General: no acute distress and alert HENMT Ears: TM's normal bilaterally and EAC's normal Throat: Yes posterior oropharynx normal and Yes tonsils normal (no TP congestion) Neck Neck: Yes supple and No lymphadenopathy Thyroid: Thyroid normal Resp Auscultation: clear to auscultation bilaterally, no rales and no wheezes Cardio Rate: regular rate Rhythm: regular rhythm Heart sounds: no murmurs GI Palpation (GI): Soft to palpation and nontender Auscultation: normal bowel sounds General: Yes no CVA tenderness Back/Spine/Pelvis Back: no CVA tenderness Thoracic/Lumbar Spine: No lumbar spinal tenderness Skin Rashes: no rashes Extrem General: Yes no clubbing, cyanosis or edema Results Reviewed Results Reviewed: Laboratory Tests 09/06/24 09/06/24 09:58 10:00 WBC 6.0 Hgb 11.2 L D Hct 36.1 L D Plt Count 181 D Sodium 143 Potassium 4.0 Creatinine 0.64 Estimated GFR > 60 Fasting Glucose 83 Haptoglobin 150 Calcium 9.1 AST 23 ALT 21 Triglycerides 90 Cholesterol 150 LDL Cholesterol, Calc 87 HDL Cholesterol 45 Vitamin B12 956 H 25-OH Vitamin D Total 16.0 L TSH 1.00 Ur Specific Byron 1.025 Urine Protein Negative Urine Glucose (UA) Negative Urine Blood Moderate (2+) H Urine Nitrite Negative Ur Leukocyte Esterase Small (1+) H Serum Copper 97 Coding Level of Care Code Est Pt Level 4 (49984) Diagnoses Iron deficiency anemia secondary to inadequate dietary iron intake D50.8 Iron deficiency anemia type: inadequate dietary iron intake Vitamin D deficiency E55.9 Overweight (BMI 25.0-29.9) E66.3 Assessment & Plan Assessment & Plan (1) Iron deficiency anemia: Code(s): D50.9 - Iron deficiency anemia, unspecified Category: Medical Qualifiers: Iron deficiency anemia type: inadequate dietary iron intake Qualified Code(s): D50.8 - Other iron deficiency anemias Plan: Patient's H/H have improved previously with IV iron infusion - she could not tolerate oral iron supplements Her H/H was at 11.2/36.1 back in August 2024 She continues to receive Venofer infusions when needed and follows up with hematology regularly for her anemia Continue Multivitamins with iron tablets daily We will continue to monitor her CBC regularly (2) Vitamin D deficiency: Code(s): E55.9 - Vitamin D deficiency, unspecified Category: Medical Plan: Results of her labs done back in August 2024 reviewed and discussed with patient She is advised that her Vitamin D level was still low on her labs done back then and aside from her anemia, all of her other results were normal Continue Vitamin D3 2000 units QD (3) Overweight (BMI 25.0-29.9): Code(s): E66.3 - Overweight Category: Medical Plan: Reinforced diet/exercise as tolerated/lose weight - she has been able to lose almost 15 pounds since her last visit through intermittent fasting on her own Plan To return in 6 months for her next annual physical examination Patient is advised to try getting her labs done JUST BEFORE she comes in for her appointment next August (2025) Orders: Orders Complete Blood Count Auto Diff 08/31/25 D64.9 - Anemia, unspecified, Z00.00 - Encounter for general adult medical examination without abnormal findings Lipid Panel 08/31/25 E78.00 - Pure hypercholesterolemia, unspecified, Z00.00 - Encounter for general adult medical examination without abnormal findings UA CC w/rflx Micro + Cult 08/31/25 R30.0 - Dysuria, Z00.00 - Encounter for general adult medical examination without abnormal findings Vitamin B12 and Folate 08/31/25 E53.8 - Deficiency of other specified B group vitamins, Z00.00 - Encounter for general adult medical examination without abnormal findings Comprehensive [place]. Panel Fast 08/31/25 E78.00 - Pure hypercholesterolemia, unspecified, Z00.00 - Encounter for general adult medical examination without abnormal findings TSH reflex Free T4 08/31/25 E78.00 - Pure hypercholesterolemia, unspecified, Z00.00 - Encounter for general adult medical examination without abnormal findings Vitamin D 25-OH Total 08/31/25 E55.9 - Vitamin D deficiency, unspecified, Z00.00 - Encounter for general adult medical examination without abnormal findings
== END 2025-03-08 10:15 | disposition home or self-care (01) ==
LOC: HO.HMCH 09:30
PROVIDERS: PCP Internal Medicine; Visit Provider Internal Medicine
DX: D50.8 Other iron deficiency anemias (principal); E55.9 Vitamin D deficiency, unspecified; E66.3 Overweight

== ENCOUNTER 2025-04-11 09:16 | Outpatient (REF) | payer BC, SELFPAY ==
[2025-04-11 11:07] LABS: Appearance Urine Clear; Glucose Urine UA Negative (Negative); PH 6.0 (5.0-9.0); Specific Gravity - Urine 1.020 (1.005-1.025); UMIC TRIGGER UACC YES
[2025-04-11 12:01] LABS: Alanine Aminotransferase 22 U/L (0-31); Albumin Level 4.7 g/dL (3.5-5.0); Alkaline Phosphatase 79 U/L (39-117); Anion Gap 10 (12-20); Aspartate Amino Transferase 27 U/L (5-31); Blood Urea Nitrogen 13 mg/dL (9-16); Calcium 9.5 mg/dL (8.4-10.2); Carbon Dioxide 26 mmol/L (22-29); Chloride 109 mmol/L (96-108); Estimated Glomerular Filt Rate > 60; Potassium 4.5 mmol/L (3.3-5.1); Sodium 140 mmol/L (135-145); Total Protein 7.7 g/dL (6.5-8.0)
--- OUTSIDE RECORDS SUMMARY | 2025-04-11 12:01 | XMS_ITS | Clinical Summary ---
Author Organization [facility] Address [address] [place] [address] Care Team Providers Care Refueling Ramp Supervisor Name Role Phone Unavailable Primary Care Provider [...] 76 12/14/2023 2:17 PM EDT Temperature 36.4 C (97.6 F) 12/14/2023 2:17 PM EDT Respiratory Rate 19 12/14/2023 2:17 PM EDT [...] Screening 1979 Sigmoidoscopy 1979 Disability Screening 1979 Alcohol/Substance Use Screening 1991 Family Planning (PISQ) 09/24/1994 HPV Vaccines (1 - 3-dose series) 09/24/1994 Hepatitis C Screening 09/24/1997 Hepatitis B Vaccines (1 of 3 - 19+ 3-dose series) 09/24/1998 Pap Smear 09/24/2000 Cervical Cancer Screening 09/24/2009 HPV/Cotest 09/24/2009 Mammogram 2019 Depression Monitoring 06/15/2024 12/14/2023 , 12/14/2023 SDOH Screening 12/06/2024 12/07/2023 Tobacco Screening 12/13/2024 12/14/2023 COVID-19 Vaccine (3 - 2024-2 6 season) 2025 10/30/2020, 10/01/2020 Influenza Vaccine (#1) 2025 DTaP/Tdap/Td Vaccines (2 - T d or [...] Years) and At-Risk Patients (6 to 49) Years Aged Out No longer eligible b ased on patient's age to complete this topic RSV under 20 months Aged Out No longe r eligible based on patient's age to complete this topic Rotavirus Vaccines Aged Out No longer eligible based on patient's age to complete this topic Insurance [facility] PPO
== END 2025-04-11 09:17 | disposition home or self-care (01) ==
LOC: HO.LAB 09:16
PROVIDERS: PCP Internal Medicine; Visit Provider Student in an Organized Health Care Education/Training Program
DX: Z00.00 Encounter for general adult medical examination without abnormal findings (principal); R10.9 Unspecified abdominal pain; Z79.899 Other long term (current) drug therapy
CPT/HCPCS: 36415; 80053; 81001; 81003

== ENCOUNTER 2025-04-11 09:16 | Outpatient (AMB) | payer BC, SELFPAY ==
--- NOTE | 2025-04-11 09:25 | MHC.PC.OV ---
Vital Signs 04/11/25 09:27 Height 5 ft 4 in Weight 166 lb 4 oz BMI 28.5 BP 126/60 Blood Pressure Location Lt brachial Position Sitting Pulse 56 Pulse Source Pulse Oximeter Temp 97.3 F Temp Source Temporal Artery Scan Pulse Oximetry (%) 100 Oxygen Delivery Method Room Air Intake Visit Reasons: kidney pain Intake Note: Patient is here to follow up on Kidney pain. Sharepoint Engineer Required: No Slot Tag Inserter: Not Required per policy Accompanied by: Self / Same As Patient Allergies codeine (CODEINE) Allergy (Intermediate, Verified 04/11/25 09:26) VOMITING oxycodone (OXYCODONE) Allergy (Intermediate, Verified 04/11/25 09:26) VOMITING trazodone (TRAZODONE) Allergy (Intermediate, Verified 04/11/25 09:26) NAUSEA & VOMITING opiates Allergy (Intermediate, Uncoded 04/11/25 09:26) vomiting Medication List - Last Reconciled 04/11/25 by Talya Dunn MD ascorbic acid (vitamin C) 100 mg PO DAILY cholecalciferol (vitamin D3) (Vitamin D3) 500 units PO DAILY ferrous sulfate (Feosol) 325 mg PO BID iron 18 mg PO DAILY multivitamin (Multiple Vitamins tablet) 1 tab PO DAILY Tobacco use date assessed: 04/11/25 Dental Screening Dental Screen Date: 03/08/25 HPI HPI Comments History of Present Illness Details The patient is a 44-year-old female presenting with left flank/lower back pain. The pain started yesterday, was initially thought to be a stiff back, and has since worsened and become more concentrated, causing inability to lie down comfortably last night. The pain is exacerbated by walking, shifting positions, and twisting, but is not constant. The patient denies any fever, chills, nausea, vomiting, blood in the urine, urinary frequency, urgency, or dysuria. There was no recent trauma, fall, heavy lifting, or aggressive exercise. Patient reports a history of kidney stones, with the last episode occurring approximately 15 years ago, which did not require any procedures. She also reports a history of a kidney infection about 25 years ago that required hospitalization. She has a known history of iron deficiency anemia, for which she is followed by hematology. She reports she had iron infusions last year and earlier this year, as well as a blood transfusion in March of last year. PFSH Medical History Overweight (BMI 25.0-29.9) Melena Vitamin D deficiency Biliary colic Kidney stones Obesity (BMI 30-39.9) Iron deficiency anemia Surgical History History of colonoscopy H/O section (~10/2016) Hx of tonsillectomy (~1993) Family History Father Bipolar disorder Fibromyalgia Hypertension CVA (cerebral vascular accident) Cardiovascular disease Maternal Grandmother Lung cancer Other Mental health disorder Substance use disorder Social History Household Members: Significant Other and Children Housing: House Alcohol intake: never Patient Tobacco Use Status: Former Tobacco user Tobacco use type: Cigarette e-Cigarette/Vaping Use: Never Used Second Hand Smoke Exposure: Yes service: No Current occupational status: employed (works at [employer]) Current occupation: [employer] Cognitive needs: No Hearing needs: No Vision needs: Yes Female Reproductive History Menstrual Age of Menarche: 10 Questionnaire Thrive Questionnaire Date Thrive assessed: 08/30/24 I am a: Patient What is your living situation today?: I have a steady place to live Within the past 12 months, did the food you bought not last and you didn't have the money to get more?: Never true Within the past 12 months, did you worry whether your food would run out before you got money to buy more?: Never true Do you have trouble paying for medicines?: No Do you have trouble getting transportation to medical appointments?: No Do you have trouble paying your heating and electricity bill?: No Do you have trouble taking care of your child, family member or friend?: No Do you have trouble with day-to-day activities such as bathing, preparing meals, shopping, managing finances, etc.?: No Are you currently unemployed and looking for a job?: No Are you interested in more education?: No Please select the resources that you would like help with: None THRIVE Score: 0 BALAJI-7 AMB Questionnaire BALAJI-7 Date BALAJI - 7 assessed: 09/06/24 Source: Developed by Drs. Daljit Ovalle, Merissa Monzon, Nishant Anderson and colleagues, with an educational destnii from [employer] Physical exam (Primary Care) Vital Signs: Last Vital Signs Temp 97.3 F 04/11/25 09:27 Pulse 56 04/11/25 09:27 BP 126/60 04/11/25 09:27 Pulse Ox 100 04/11/25 09:27 Oxygen Delivery Method Room Air 04/11/25 09:27 General: Well-appearing, alert, oriented ?3, in no acute distress. Cardiovascular: RRR, S1-S2 appreciated, no murmurs, rubs or gallops. Respiratory: Lungs clear to auscultation bilaterally, no wheezes, rales or rhonchi. Abdomen: Soft, nontender, nondistended. Normoactive bowel sounds. No suprapubic tenderness. Back exam: Point tenderness of lower left back around iliac crest level BMI result Body Mass Index 28.5 Tobacco/Smoking Status: Tobacco use Status Tobacco use date assessed 04/11/25 04/11/25 09:34 Patient Tobacco Use Status Former Tobacco user 04/11/25 09:34 Tobacco use type Cigarette 04/11/25 09:34 e-Cigarette/Vaping Use Never Used 04/11/25 09:34 Thrive Assessment: Date of Thrive Assessment Date Thrive assessed 08/30/24 04/11/25 09:34 Coding Level of Care Code Est Pt Level 3 (73533) Diagnoses Left flank pain R10.9 Assessment & Plan Assessment & Plan (1) Left flank pain: Code(s): R10.9 - Unspecified abdominal pain Plan: Patient presenting with left lateral lower back/flank pain area x1 day, nonradiating without urinary symptoms. denies any fever, chills, nausea, vomiting. Patient reports history of kidney stones 15 years ago and concerned about reoccurrence of the stones. Further workup with urinalysis, chemistry panel, renal ultrasound to assess for signs of obstruction. For pain management, the patient declined a prescription of will use [id number] ibuprofen. She is advised to use it with food and hydration. Patient advised to drink plenty of water. If pain worsens become severe, develops any nausea vomiting or fevers patient advised to present to the ED. Orders: Orders Comprehensive Met. Panel Today Z00.00 - Encounter for general adult medical examination without abnormal findings UA CC w/rflx Micro + Cult Today R10.9 - Unspecified abdominal pain US renal BI Today R10.9 - Unspecified abdominal pain
[2025-04-11 09:27] VITALS: BP 126/60; PULSE 56; TEMP 36.3; O2SAT 100; BMI 28.5
== END 2025-04-11 09:55 | disposition home or self-care (01) ==
LOC: HO.HMCH 09:17
PROVIDERS: PCP Internal Medicine; Visit Provider Student in an Organized Health Care Education/Training Program
DX: R10.9 Unspecified abdominal pain (principal)

== ENCOUNTER 2025-04-13 10:23 | Emergency (ER) | payer BC, SELFPAY ==
--- NOTE | ~2025-04-13 | CT_ITS ---
CLINICAL HISTORY: L FLANK BACK L GROIN PAIN Exam: Nonenhanced CT abdomen and pelvis with multiplanar reformats. Comparison: None. Findings: CT abdomen: Lung bases are clear. Liver is free of gross focal lesions and ductal dilatation. Gallbladder appears unremarkable. Spleen reveals a granulomatous calcification and is otherwise unremarkable. Pancreas and adrenal glands appear unremarkable. Kidneys appear unremarkable. No urolithiasis or hydroureteronephrosis. No free intraperitoneal fluid or retroperitoneal masses or adenopathy. Abdominal aorta is normal caliber. Bowel loops reveal no abnormal wall thickening or distention. The appendix is unremarkable. No significant diverticular disease. CT pelvis: Uterus and adnexal structures appear unremarkable. Urinary bladder is free of gross filling defects. No pelvic masses, fluid or adenopathy. Osseous structures reveal no destructive osseous lesions. Impression: 1. No acute abnormality or CT explanation for left flank pain. Specifically, no urolithiasis or hydroureteronephrosis appreciated. This document has been electronically signed by: Kilo Duncan MD on 04/13/2025 13:57:32
[2025-04-13 10:33] VITALS: BP 135/61; PULSE 69; RESP 16; TEMP 36.1; O2SAT 100; BMI 28.3
[2025-04-13 11:06] LABS: Appearance Urine Clear; Glucose Urine UA Negative (Negative); PH 5.5 (5.0-9.0); Specific Gravity - Urine >= 1.030 (1.005-1.025)
--- NOTE | 2025-04-13 11:15 | ED.GENADULT ---
HPI - General Adult General Chief complaint: Extremity Problem Stated complaint: Back Pain Time Seen by Provider: 04/13/25 11:11 Source: patient Mode of arrival: ambulatory Limitations: no limitations History of Present Illness ED Provider: JUNE CREWS PA-C HPI narrative: 44 year old female presents to the ED today for evaluation of left lower back pain x4 days. States pain has been constant. Describes this as a dull ache with an intermittent sharp sensation. Pain is now radiating to her left groin/hip region. Reports pain is worse with certain movements. She has been taking Tylenol/Motrin at home with minimal improvement. Her last dose was last night. Pain is currently 2/10. She reports seeing her PCP a few days ago for same who suspected musculoskeletal pain. Advised tyleno/motrin. Denies fever, chills, N/V, dysuria, hematuria, constipation, diarrhea. Endorses remote history of renal stones >15 years ago. Denies blunt injury/trauma. Denies hx IVDU, spinal surgery. Related Data Home Medications ?Medication ?Instructions ?Recorded ?Confirmed iron 18 mg tablet 18 mg PO DAILY 07/20/24 04/11/25 cholecalciferol (vitamin D3) 10 500 unit PO DAILY 09/19/24 04/11/25 mcg (400 unit) tablet (Vitamin D3) multivitamin (Multiple Vitamins 1 tab PO DAILY 03/08/25 04/11/25 tablet) ascorbic acid (vitamin C) 100 mg 100 mg PO DAILY 03/22/25 04/11/25 chewable tablet Previous Rx's ?Medication ?Instructions ?Recorded ferrous sulfate 325 mg (65 mg 325 mg PO BID #60 tabs 03/22/25 iron) tablet (Feosol) cyclobenzaprine 5 mg tablet 5 mg PO TID PRN muscle pain 3 days 04/13/25 #9 tabs lidocaine 5 % topical patch See Rx Instructions topical 04/13/25 .COMPLEX #15 ea Allergies Allergy/AdvReac Type Severity Reaction Status Date / Time codeine (CODEINE) Allergy Intermediate VOMITING Verified 04/13/25 10:35 oxycodone (OXYCODONE) Allergy Intermediate VOMITING Verified 04/13/25 10:35 trazodone (TRAZODONE) Allergy Intermediate NAUSEA & Verified 04/13/25 10:35 VOMITING opiates Allergy Intermediate vomiting Uncoded 04/11/25 09:26 Review of Systems Review of Systems: Yes all other systems are reviewed and are negative [facility] Past Medical History Attestation statement: The following information was validated with the patient. Source: old records reviewed and nursing notes reviewed Medical History Overweight (BMI 25.0-29.9) Melena Vitamin D deficiency Biliary colic Kidney stones Obesity (BMI 30-39.9) Iron deficiency anemia Surgical History History of colonoscopy H/O section (~10/2016) Hx of tonsillectomy (~1993) Family History Family History Father Bipolar disorder Fibromyalgia Hypertension CVA (cerebral vascular accident) Cardiovascular disease Maternal Grandmother Lung cancer Other Mental health disorder Substance use disorder Social History Social History Household Members: Significant Other and Children Housing: House Alcohol intake: never Patient Tobacco Use Status: Former Tobacco user Tobacco use type: Cigarette e-Cigarette/Vaping Use: Never Used Second Hand Smoke Exposure: Yes service: No Current occupational status: employed (works at [employer] in [place]) Current occupation: [employer] Cognitive needs: No Hearing needs: No Vision needs: Yes Physical Exam ED Vital Signs: Vital Signs - 24 hr 04/13/25 10:33 04/13/25 13:52 04/13/25 14:52 Temperature 97.0 F 98.2 F 98.2 F Pulse Rate 69 59 59 Respiratory Rate 16 16 16 Blood Pressure 135/61 109/59 L 109/59 L Pulse Oximetry 100 100 100 Oxygen Delivery Method Room Air Room Air Room Air BMI result Body Mass Index 28.3 vital signs stable General: Well appearing, in no acute distress. Skin: Warm, dry, intact. No rashes or lesions. Head: Normocephalic, atraumatic. EENT: Hearing is intact b/l. Conjunctiva clear. PERRLA. EOM intact. Moist mucous membranes.?? Cardiac: Chest wall symmetric. RRR Lungs: Normal respiratory effort without accessory muscle use. CTA bilaterally Abdomen: Soft, non-tender, non-distended. No rebound tenderness or guarding. Positive BS x4. no cvat. Back: no midline spinous tenderness or step off. there is ttp along left lumbar paraspinal musculature, no obvious swelling or overlying skin changes. Ext: Upper and lower extremities atraumatic, without tenderness, deformity, swelling or erythema. Full ROM throughout Neuro: AOx3. Normal speech. Strength 5/5 intact throughout. No saddle anesthesia. Sensation intact to light touch. NV intact distally. Ambulating with steady gait. Course Course Course Narrative: CBC without leukocytosis or left shift, H&H stable. Chemistry without acute electrolyte abnormality requiring intervention. No MAURICIO. Liver function normal. Beta quant undetectable. Urine without infection or blood. CT abdomen/pelvis without obstructing ureteral stone. No hernia. > per physical exam is consistent with musculoskeletal pain discussed all workup results with the patient. Will discharge patient home with Flexeril and lidocaine patch. Advised outpatient follow up. Patient has remained stable throughout ED visit today. Discussed worrisome signs and symptoms and when to return to the ED. All questions answered at this time. Patient is agreeable with disposition and stable for discharge. Medical Decision Making Medical Decision Making [facility] Narrative: 44 year old female presents to the ED today for evaluation of left lower back pain x4 days. vital signs stable, afebrile. she is generally well appearing, in NAD. on exam, no midline spinous tenderness or step off. there is ttp along left lumbar paraspinal musculature, no obvious swelling or overlying skin changes. abdominal exam benign, no CVAT. Differential diagnosis includes UTI, renal colic, nephrolithiasis, hydronephrosis, msk sprain/strain, sciatica, inguinal hernia, lumbar radiculopathy Plan for labs, UA, imaging. Differential Diagnosis Differential Diagnoses: The differential diagnosis associated with the presentation includes as above. Admission/Observation not indicated. Lab Data [facility] Lab Attestation statement: I reviewed the patient's lab results. as above. 04/13/25 11:36 04/13/25 11:36 Labs: Lab Results 04/13/25 04/13/25 Range/Units 11:00 11:36 WBC 5.2 (4.8-10.8) X10*3/uL RBC 4.66 (4.20-5.50) X10*6/uL Hgb 11.5 L (12.0-16.0) g/dl Hct 38.1 (37.0-47.0) % MCV 81.8 (80.0-98.0) fL MCH 24.7 L (27.0-33.0) pg MCHC 30.2 L (31.0-35.0) g/dl RDW 22.4 H (11.0-16.0) % Plt Count 186 (160-400) X10*3/uL MPV 10.7 (9.4-12.3) fL Immature Gran % (Auto) 0.4 (0.0-0.4) % Neut % (Auto) 60.3 (45-73) % Lymph % (Auto) 28.2 (20-40) % [place] % (Auto) 8.4 (2-11) % Eos % (Auto) 2.3 (0-4) % Baso % (Auto) 0.4 (0-2) % Lymph # (Auto) 1.5 (1.2-4.9) X10*3/uL [place] # (Auto) 0.4 (0.1-1.2) X10*3/uL Eos # (Auto) 0.1 (0.0-0.4) X10*3/uL Baso # (Auto) 0.0 (0.0-0.2) X10*3/uL Abs Immat Gran (auto) 0.02 (0.00-0.03) X10*3/uL Absolute Neuts (auto) 3.2 (2.0-8.3) x10*3/uL Absolute Nucleated RBC 0.000 (0.0-0.012) X10*3/uL Nucleated RBC % (auto) 0.0 (0.0-0.2) /100WBC Sodium 140 (135-145) mmol/L Potassium 4.1 (3.3-5.1) mmol/L Chloride 110 H (96-108) mmol/L Carbon Dioxide 24 (22-29) mmol/L Anion Gap 10 L (12-20) BUN 14 (9-16) mg/dL Creatinine 0.73 (0.5-1.4) mg/dL Estim Creat Clear Calc 96.3 Estimated GFR > 60 Random Glucose 86 (60-115) mg/dL Calcium 9.7 (8.4-10.2) mg/dL Magnesium 2.0 (1.6-2.6) mg/dL Total Bilirubin 0.4 (0.0-1.0) mg/dL AST 24 (5-31) U/L ALT 19 (0-31) U/L Alkaline Phosphatase 75 (39-117) U/L Total Protein 7.5 (6.5-8.0) g/dL Albumin 4.5 (3.5-5.0) g/dL Beta HCG, Quant < 2 mIU/mL Urine Color Yellow Urine Appearance Clear Urine pH 5.5 (5.0-9.0) Ur Specific Whiteside >= 1.030 H (1.005-1.025) Urine Protein Negative (Neg-Trace) mg/dL Urine Glucose (UA) Negative (Negative) mg/dL Urine Ketones Trace (Negative) mg/dL Urine Blood Negative (Negative) Urine Nitrite Negative (Negative) Ur Leukocyte Esterase Negative (Negative) Urine RBC 0-2 (0-2) /HPF Urine WBC 0-5 (0-5) /HPF Ur Squamous Epith Cells 3-5 (0-2) /HPF Urine Bacteria None Seen (None Seen) Hyaline Casts 0-2 (0-2) /LPF Independent Interpretation I performed an independent interpretation of an: CT Scan Interpretation: ct a/p without obstructing ureteral stone Radiology Impression Discussion of test interpretation with radiology: I have reviewed the radiologist's reading. Radiologist Impression: Procedure(s): CT abdomen pelvis wo IV con Accession Number(s): [id number] cc: Alireza Domínguez MD; June Crews~ Report Number: [id number]: Total DLP = 614.00 mGy-cm Reason for Exam: L FLANK/BACK/L GROIN PAIN CLINICAL HISTORY: L FLANK BACK L GROIN PAIN Exam: Nonenhanced CT abdomen and pelvis with multiplanar reformats. Comparison: None. Findings: CT abdomen: Lung bases are clear. Liver is free of gross focal lesions and ductal dilatation. Gallbladder appears unremarkable. Spleen reveals a granulomatous calcification and is otherwise unremarkable. Pancreas and adrenal glands appear unremarkable. Kidneys appear unremarkable. No urolithiasis or hydroureteronephrosis. No free intraperitoneal fluid or retroperitoneal masses or adenopathy. Abdominal aorta is normal caliber. Bowel loops reveal no abnormal wall thickening or distention. The appendix is unremarkable. No significant diverticular disease. CT pelvis: Uterus and adnexal structures appear unremarkable. Urinary bladder is free of gross filling defects. No pelvic masses, fluid or adenopathy. Osseous structures reveal no destructive osseous lesions. Impression: 1. No acute abnormality or CT explanation for left flank pain. Specifically, no urolithiasis or hydroureteronephrosis appreciated. External Record Review External record reviewed: Inpatient record Prescription Management I considered prescription management with: Pain Medication and Other (flexeril) Social Determinants Patient?s care significantly limited by Social Determinants of Health including: Other Social Determinant of Health Critical Care Time Critical Care Time Critical Care Time: No Discharge Plan Discharge Clinical Impression: Musculoskeletal back pain Patient Disposition: Home, Self-Care Instructions: Back Pain (ED) Additional Instructions: Your work up today is reassuring. Your evaluation did not show signs of medical conditions requiring emergent intervention at this time. Avoid bending, lifting, or twisting. Use ice several times per day for 20 minutes at a time for the next 48 hours and then change to heat. I recommend you take 600mg ibuprofen every 6 hours or tylenol 650mg every 6 hours as needed for pain. If needed, you can alternate these medications so that you take one medication every 3 hours. For example, at noon take ibuprofen, then at 3pm take tylenol, then at 6pm take ibuprofen. Flexeril is a muscle relaxer. Take this at night as it makes you drowsy. Do not drive, drink alcohol, or operate machinery while taking it. Lidoderm patches are numbing patches. Apply to painful areas. Please schedule an appointment for follow-up with your primary care provider this week for further evaluation of your symptoms. Return to the Emergency Department if you experience worsening back pain, difficulty walking, fevers, numbness, tingling, incontinence, or any other concerning symptoms. In the case of an emergency call 911. Prescriptions: New lidocaine 5 % adhesive patch,medicated See Rx Instructions .ROUTE .COMPLEX Qty: 15 0RF Rx Instructions: leave on most painful area for up to 12 hrs cyclobenzaprine 5 mg tablet 5 mg PO TID PRN (Reason: muscle pain) 3 Days Qty: 9 0RF No Action iron 18 mg Tablet 18 mg PO DAILY cholecalciferol (vitamin D3) [Vitamin D3] 10 mcg (400 unit) Tablet 500 unit PO DAILY Vitamin C 100 mg Tablet,Chewable 100 mg PO DAILY ferrous sulfate [Feosol] 325 mg (65 mg iron) Tablet 325 mg PO BID Qty: 60 3RF multivitamin [Multiple Vitamins] Tablet 1 tab PO DAILY Referrals: Alireza Domínguez MD [Primary Care Provider, Internal Medicine] Interventions: ED Discharge Assessment Last Done: 04/13/25 14:52 Discharge Date/Time: 04/13/25 14:52 Print Language: Greenlandic
[2025-04-13 11:40] LABS: MANUAL DIFF FLAG NO
[2025-04-13 11:48] LABS: Hematocrit 38.1 % (37.0-47.0); Hemoglobin 11.5 g/dl (12.0-16.0); Imm Gran Abs Auto 0.02 X10*3/uL (0.00-0.03); Imm Gran Pct Auto 0.4 % (0.0-0.4); Lymphocytes Absolute Auto 1.5 X10*3/uL (1.2-4.9); Mean Corpuscular HGB Conc 30.2 g/dl (31.0-35.0); Mean Corpuscular Hemoglobin 24.7 pg (27.0-33.0); Mean Corpuscular Volume 81.8 fL (80.0-98.0); NRBC Abs Auto 0.000 X10*3/uL (0.0-0.012); NRBC Pct Auto 0.0 /100WBC (0.0-0.2); Platelet Count 186 X10*3/uL (160-400); Red Blood Count 4.66 X10*6/uL (4.20-5.50); White Blood Count 5.2 X10*3/uL (4.8-10.8)
[2025-04-13 12:12] LABS: Alanine Aminotransferase 19 U/L (0-31); Albumin Level 4.5 g/dL (3.5-5.0); Alkaline Phosphatase 75 U/L (39-117); Anion Gap 10 (12-20); Aspartate Amino Transferase 24 U/L (5-31); Blood Urea Nitrogen 14 mg/dL (9-16); Calcium 9.7 mg/dL (8.4-10.2); Carbon Dioxide 24 mmol/L (22-29); Chloride 110 mmol/L (96-108); Creatinine Clr Calc Pharmacy 96.3; Estimated Glomerular Filt Rate > 60; Magnesium 2.0 mg/dL (1.6-2.6); Potassium 4.1 mmol/L (3.3-5.1); Sodium 140 mmol/L (135-145); Total Protein 7.5 g/dL (6.5-8.0)
[2025-04-13 13:52] VITALS: BP 109/59; PULSE 59; RESP 16; TEMP 36.8; O2SAT 100
[2025-04-13 14:52] VITALS: BP 109/59; PULSE 59; RESP 16; TEMP 36.8; O2SAT 100
== END 2025-04-13 14:52 | disposition home or self-care (01) ==
PROVIDERS: Physician Assistant Medical; Emergency Provider Emergency Medicine; PCP Internal Medicine
DX: M54.50 Low back pain, unspecified (principal); R10.A2 Flank pain, left side; Z88.5 Allergy status to narcotic agent
CPT/HCPCS: 36415; 74176; 80053; 81001; 83735; 84702; 85025; 99284

== ENCOUNTER → 2025-04-13 11:23 | Outpatient (BNV) | payer BC, SELFPAY | PROVIDERS: Emergency Provider Emergency Medicine; PCP Internal Medicine; Visit Provider Radiology Diagnostic Radiology | DX: R10.32 Left lower quadrant pain (principal); R10.A2 Flank pain, left side; M54.50 Low back pain, unspecified | CPT/HCPCS: 74176 ==